=== PATIENT | female | born 1970 | race Caucasian/White ===

== ENCOUNTER 2020-07-13 13:06 | Outpatient (REF) | payer MEDICARE, MEDICAID, SELFPAY ==
--- NOTE | 2020-07-13 | MR_ITS ---
EXAMINATION: MR BRAIN WITHOUT AND WITH CONTRAST CLINICAL INFORMATION: MS. Epilepsy. COMPARISON: None TECHNIQUE: Multiplanar, multisequence MRI of the brain was obtained before and after the intravenous administration of 7 mL Gadavist. FINDINGS: There is no focal restricted diffusion seen to suspect any acute ischemia or acute demyelination. There is a focal hyperintensity on T2 with corresponding T1 hypointensity in the left posterior lobe extending to the occipital lobe consistent with encephalomalacia. Surrounding this encephalomalacia are two areas of hyperintensity likely gliosis. Postcontrast no abnormal enhancement seen in this region. There are T2-weighted signal changes on FLAIR along the periventricular white matter of both cerebral hemispheres without mass effect or enhancement representing chronic small vessel ischemic changes. No abnormality seen in the temporal lobes. There is benign hyperostosis frontalis interna without enhancement. The lateral ventricles are symmetrical and enlarged without mass effect. Normal arterial and venous vascular flow voids are present. There is normal symmetry of bilateral optic globes, optic nerves and extraocular muscles. No abnormal enhancement seen. The paranasal sinuses are well aerated. MR/MR head/brain wo/w con IMPRESSION: Left parieto-occipital lobe encephalomalacia with adjacent gliosis but no abnormal enhancement seen. This is most likely from old insult. Periventricular T2 signal changes without enhancement likely chronic small vessel ischemic changes in both cerebral hemispheres. Mild prominence of lateral ventricles likely mild cerebral volume loss.
== END 2020-07-13 13:07 | disposition home or self-care (01) ==
LOC: HO.MRI 13:06
PROVIDERS: PCP Physician Assistant; Visit Provider Psychiatry & Neurology Neurology
DX: G35 Multiple sclerosis (principal); G40.909 Epilepsy, unspecified, not intractable, without status epilepticus
CPT/HCPCS: 70553; A9585

== ENCOUNTER 2020-11-09 12:37 | Emergency (ER) | payer MEDICARE, MEDICAID, SELFPAY ==
--- NOTE | ~2020-11-09 | XR_ITS ---
EXAMINATION: XR KNEE, RIGHT CLINICAL INFORMATION: Pain and swelling COMPARISON: None TECHNIQUE: Four views of the right knee. FINDINGS: Bone alignment is normal. No fracture or dislocation is seen. The joint spaces are normal. There is a small osteophyte at the quadriceps tendon insertion to the patella. There is no joint effusion. XR/XR knee RT 4V IMPRESSION: Small osteophyte at the quadriceps tendon insertion to the patella otherwise unremarkable exam.
[2020-11-09 14:32] VITALS: BP 140/74; PULSE 87; RESP 18; TEMP 36.4; O2SAT 98; BMI 28.3
--- NOTE | 2020-11-09 14:47 | ED.LOWEXIN ---
HPI - Extremity Injury (Lower) General Chief Complaint: Extremity Injury, Lower Stated Complaint: R LEG SWELLING Time Seen by Provider: 11/09/20 14:36 Source: patient Mode of arrival: ambulatory Limitations: no limitations History of Present Illness HPI Narrative: 49 yo female with past medical history of MS, previous hypertension injury of the right knee here with complaints of right knee pain since yesterday with swelling. No erythema, warmth, fevers, chills. Related Data Allergies Allergy/AdvReac Type Severity Reaction Status Date / Time aspirin [ASPIRIN] AdvReac Severe GI BLEEDING Verified 11/09/20 14:32 hydromorphone [From DILAUDID] AdvReac Severe VIOLENT Verified 11/09/20 14:32 NSAIDS (Non-Steroidal AdvReac Severe GI BLEEDING Verified 11/09/20 14:32 Anti-Inflamma [NSAIDS (NON-STEROIDAL ANTI-INFLAMMA] oxycodone [OXYCODONE] AdvReac Mild NAUSEA & Verified 11/09/20 14:32 VOMITING penicillin Allergy Unknown Hives Uncoded 11/09/20 14:32 Review of Systems Review of Systems: Yes all other systems are reviewed and are negative Constitutional: Constitutional: Reports no additional constitutional complaints, Denies body ache(s), Denies chills, Denies fever(s), Denies headache(s) and Denies weakness Eyes: Eyes: Reports no additional eye complaints and Denies change in vision ENT: Reports system reviewed and no additional complaints, except as documented, Denies dizziness, Denies headache(s), Denies nasal congestion, Denies nasal discharge and Denies neck pain Cardiovascular: Cardiovascular: Reports no additional cardiovascular complaints, Denies chest pain, Denies leg edema and Denies dyspnea Respiratory: Respiratory: Reports no additional respiratory complaints, Denies cough and Denies dyspnea Gastrointestinal: Gastrointestinal: Reports no additional gastrointestinal complaints, Denies abdominal pain, Denies diarrhea, Denies nausea and Denies vomiting Genitourinary: Genitourinary: Reports no additional female genitourinary complaints and Denies urinary incontinence Musculoskeletal: Musculoskeletal: Reports no additional musculoskeletal complaints, Denies back pain, Reports arthralgias, Reports joint swelling, Denies neck pain, Denies numbness and Denies tingling Integumentary/Breasts: Skin/Breast: Reports system reviewed and no additional complaints, except as docu and Denies rash Neurologic: Reports system reviewed and no additional complaints, except as documented, Denies Abnormal speech present, Denies dizziness, Denies headache(s), Denies numbness, Denies tingling and Denies weakness PMFSH Past Medical History Attestation statement: The following information was validated with the patient. Source: old records reviewed and nursing notes reviewed Medical History Multiple sclerosis Surgical History H/O brain surgery Social History Social History Advance Directives: No Advance Directives Information Provided: No Physical Exam Vital Signs: Vital Signs: Last Vital Signs Temp 97.6 F 11/09/20 14:32 Pulse 87 11/09/20 14:32 Resp 18 11/09/20 14:32 BP 140/74 H 11/09/20 14:32 Pulse Ox 98 11/09/20 14:32 Body Mass Index 28.3 Const: General: cooperative, healthy appearing, comfortable and no acute distress Orientation/consciousness: patient oriented x3 Limitations: no limitations HENMT: Head: Yes normal to inspection Ears: hearing grossly normal bilaterally General nose exam: Normal external nose present Face and sinus: Yes normal facial exam Mouth: Normal oral and palatal mucosa present Throat: Yes posterior oropharynx normal Eyes: General: appearance normal, both eyes and all related structures Pupils: Equal, round and reactive pupils present Neck: Neck: Yes normal visual inspection Chest: Chest palpation & inspection: normal inspection of the chest Resp: Effort & Inspection: normal respiratory effort Auscultation: clear to auscultation bilaterally Cardio: Rate: regular rate Rhythm: regular rhythm Peripheral pulses: Peripheral pulses 2+ throughout GI: Inspection: Yes normal to inspection Palpation (GI): Soft to palpation and nontender Auscultation: normal bowel sounds Back/Spine/Pelvis: Thoracic/Lumbar Spine: thoracic and lumbar spine normal to inspection Skin: General skin exam: no rashes or lesions noted Neuro: General: patient oriented x3, no focal motor deficits and normal sensation to monofilament Cranial nerves: Yes Equal, round and reactive pupils present Cognition (Neuro): normal cognition Speech: No Abnormal speech present Gait exam (Neuro): Normal gait present Motor exam (neuro): 5/5 motor strength present throughout Extrem: Other: Tenderness to anterior knee, suprapatellar and medial joint line. FROM. No ligamental laxity. NV intact distally. General: Yes normal to inspection Course Course Course Narrative: 49 yo female here with right knee pain atraumatic x 24 hrs. WIll check imaging. 1515-Imaging c/w with bone spur likely secondary to underlying OA. To place in alivia wrap and provide crutches, discussed RICE at home. Will have f/u with orthopedics if no improvement in symptoms. Comfortable with discharge home. Procedures Procedure Narrative Procedure Narrative: alivia wrap, crutches with teaching MDM - Extremity Injury (Lower) Medical Records Attestation: I reviewed the patient's medical records. Lab Data Attestation: I reviewed the patient's lab results. Imaging Data knee xray: Attestation: I personally reviewed and interpreted this imaging study as follows: Radiologist's impression: EXAMINATION: XR KNEE, RIGHT CLINICAL INFORMATION: Pain and swelling COMPARISON: None TECHNIQUE: Four views of the right knee. FINDINGS: Bone alignment is normal. No fracture or dislocation is seen. The joint spaces are normal. There is a small osteophyte at the quadriceps tendon insertion to the patella. There is no joint effusion. XR/XR knee RT 4V IMPRESSION: Small osteophyte at the quadriceps tendon insertion to the patella otherwise unremarkable exam. Discharge Plan Discharge Clinical Impression: Osteoarthritis Patient Disposition: Home, Self-Care Instructions: Osteoarthritis (ED) Additional Instructions: Ice, elevation, alivia wrap for compression, crutches to limit weight bearing Follow-up with orthopedics if no improvement in several days Referrals: Prasanth Degroot MD [Physician] - 2 days Interventions: ED Discharge Assessment Last Done: 11/09/20 15:25 Discharge Date/Time: 11/09/20 15:26
== END 2020-11-09 15:26 | disposition home or self-care (01) ==
PROVIDERS: Emergency Provider Emergency Medicine; PCP Physician Assistant
DX: M17.11 Unilateral primary osteoarthritis, right knee (principal); M25.561 Pain in right knee; G35 Multiple sclerosis
CPT/HCPCS: 73564; 99283

== ENCOUNTER → 2020-11-13 10:36 | Outpatient (BNVA) | payer MEDICARE, MEDICAID, SELFPAY | PROVIDERS: Visit Provider Physician Assistant | DX: Z13.89 Encounter for screening for other disorder (principal) | CPT/HCPCS: 99202 ==

== ENCOUNTER 2020-11-24 16:17 | Emergency (ER) | payer MEDICARE, MEDICAID, SELFPAY ==
--- NOTE | ~2020-11-24 | XR_ITS ---
EXAMINATION: 1. RADIOGRAPHS LUMBAR SPINE 2. RADIOGRAPHS RIGHT HIP 3. RADIOGRAPHS RIGHT KNEE 4. RADIOGRAPHS RIGHT ANKLE CLINICAL INFORMATION: Pain after fall COMPARISON: Right knee radiographs 11/09/2020 TECHNIQUE: 3 views of the lumbar spine, 2 views of the right hip, 4 views of the right knee and 3 views of right ankle were obtained. FINDINGS: Lumbar spine: 5 nonrib-bearing lumbar vertebral bodies are visualized. Normal alignment. Vertebral body heights are well-maintained. Mildly decreased disc spaces noted at L1/L2, L2/L3 and L5/S1. There are mild degenerative changes of the posterior elements of the lower lumbar spine. Sacroiliac joints are symmetric. Surgical clips in the upper abdomen are most consistent with prior cholecystectomy. Right hip: The pelvic ring is intact. Visualized portion of the proximal right femur demonstrate no fracture. Right femoral head is well-seated within the acetabulum. Right femoral acetabular joint space is well-maintained. Small osteophyte along the superolateral right acetabular margin. Punctate vascular calcification of the pelvis. Limited visualization of the left hip is grossly unremarkable. Right knee: No fracture or dislocation. No suprapatellar joint effusion. Joint spaces are well-maintained. A few tiny marginal osteophytes are noted. No prevertebral soft tissue swelling. Right ankle: Visualized portion of the distal tibia and fibula demonstrate no fracture. Ankle mortise is well-maintained. No focal soft tissue swelling of the ankle. No gross ankle joint effusion. Tiny plantar calcaneal enthesophytes. XR/XR ankle RT min 3V IMPRESSION: -Mild degenerative changes of the lumbar spine. No compression deformity. -Minimal degenerative changes of the right hip without fracture or dislocation. -Minimal degenerative changes of the right knee without fracture, dislocation or suprapatellar joint effusion. -Unremarkable radiographs of the right ankle.
--- NOTE | ~2020-11-24 | XR_ITS ---
EXAMINATION: 1. RADIOGRAPHS LUMBAR SPINE 2. RADIOGRAPHS RIGHT HIP 3. RADIOGRAPHS RIGHT KNEE 4. RADIOGRAPHS RIGHT ANKLE CLINICAL INFORMATION: Pain after fall COMPARISON: Right knee radiographs 11/09/2020 TECHNIQUE: 3 views of the lumbar spine, 2 views of the right hip, 4 views of the right knee and 3 views of right ankle were obtained. FINDINGS: Lumbar spine: 5 nonrib-bearing lumbar vertebral bodies are visualized. Normal alignment. Vertebral body heights are well-maintained. Mildly decreased disc spaces noted at L1/L2, L2/L3 and L5/S1. There are mild degenerative changes of the posterior elements of the lower lumbar spine. Sacroiliac joints are symmetric. Surgical clips in the upper abdomen are most consistent with prior cholecystectomy. Right hip: The pelvic ring is intact. Visualized portion of the proximal right femur demonstrate no fracture. Right femoral head is well-seated within the acetabulum. Right femoral acetabular joint space is well-maintained. Small osteophyte along the superolateral right acetabular margin. Punctate vascular calcification of the pelvis. Limited visualization of the left hip is grossly unremarkable. Right knee: No fracture or dislocation. No suprapatellar joint effusion. Joint spaces are well-maintained. A few tiny marginal osteophytes are noted. No prevertebral soft tissue swelling. Right ankle: Visualized portion of the distal tibia and fibula demonstrate no fracture. Ankle mortise is well-maintained. No focal soft tissue swelling of the ankle. No gross ankle joint effusion. Tiny plantar calcaneal enthesophytes. XR/XR knee RT 4V IMPRESSION: -Mild degenerative changes of the lumbar spine. No compression deformity. -Minimal degenerative changes of the right hip without fracture or dislocation. -Minimal degenerative changes of the right knee without fracture, dislocation or suprapatellar joint effusion. -Unremarkable radiographs of the right ankle.
--- NOTE | ~2020-11-24 | XR_ITS ---
EXAMINATION: 1. RADIOGRAPHS LUMBAR SPINE 2. RADIOGRAPHS RIGHT HIP 3. RADIOGRAPHS RIGHT KNEE 4. RADIOGRAPHS RIGHT ANKLE CLINICAL INFORMATION: Pain after fall COMPARISON: Right knee radiographs 11/09/2020 TECHNIQUE: 3 views of the lumbar spine, 2 views of the right hip, 4 views of the right knee and 3 views of right ankle were obtained. FINDINGS: Lumbar spine: 5 nonrib-bearing lumbar vertebral bodies are visualized. Normal alignment. Vertebral body heights are well-maintained. Mildly decreased disc spaces noted at L1/L2, L2/L3 and L5/S1. There are mild degenerative changes of the posterior elements of the lower lumbar spine. Sacroiliac joints are symmetric. Surgical clips in the upper abdomen are most consistent with prior cholecystectomy. Right hip: The pelvic ring is intact. Visualized portion of the proximal right femur demonstrate no fracture. Right femoral head is well-seated within the acetabulum. Right femoral acetabular joint space is well-maintained. Small osteophyte along the superolateral right acetabular margin. Punctate vascular calcification of the pelvis. Limited visualization of the left hip is grossly unremarkable. Right knee: No fracture or dislocation. No suprapatellar joint effusion. Joint spaces are well-maintained. A few tiny marginal osteophytes are noted. No prevertebral soft tissue swelling. Right ankle: Visualized portion of the distal tibia and fibula demonstrate no fracture. Ankle mortise is well-maintained. No focal soft tissue swelling of the ankle. No gross ankle joint effusion. Tiny plantar calcaneal enthesophytes. XR/XR lumbar spine 2-3V IMPRESSION: -Mild degenerative changes of the lumbar spine. No compression deformity. -Minimal degenerative changes of the right hip without fracture or dislocation. -Minimal degenerative changes of the right knee without fracture, dislocation or suprapatellar joint effusion. -Unremarkable radiographs of the right ankle.
--- NOTE | ~2020-11-24 | XR_ITS ---
EXAMINATION: 1. RADIOGRAPHS LUMBAR SPINE 2. RADIOGRAPHS RIGHT HIP 3. RADIOGRAPHS RIGHT KNEE 4. RADIOGRAPHS RIGHT ANKLE CLINICAL INFORMATION: Pain after fall COMPARISON: Right knee radiographs 11/09/2020 TECHNIQUE: 3 views of the lumbar spine, 2 views of the right hip, 4 views of the right knee and 3 views of right ankle were obtained. FINDINGS: Lumbar spine: 5 nonrib-bearing lumbar vertebral bodies are visualized. Normal alignment. Vertebral body heights are well-maintained. Mildly decreased disc spaces noted at L1/L2, L2/L3 and L5/S1. There are mild degenerative changes of the posterior elements of the lower lumbar spine. Sacroiliac joints are symmetric. Surgical clips in the upper abdomen are most consistent with prior cholecystectomy. Right hip: The pelvic ring is intact. Visualized portion of the proximal right femur demonstrate no fracture. Right femoral head is well-seated within the acetabulum. Right femoral acetabular joint space is well-maintained. Small osteophyte along the superolateral right acetabular margin. Punctate vascular calcification of the pelvis. Limited visualization of the left hip is grossly unremarkable. Right knee: No fracture or dislocation. No suprapatellar joint effusion. Joint spaces are well-maintained. A few tiny marginal osteophytes are noted. No prevertebral soft tissue swelling. Right ankle: Visualized portion of the distal tibia and fibula demonstrate no fracture. Ankle mortise is well-maintained. No focal soft tissue swelling of the ankle. No gross ankle joint effusion. Tiny plantar calcaneal enthesophytes. XR/XR hip RT w PEL1V IMPRESSION: -Mild degenerative changes of the lumbar spine. No compression deformity. -Minimal degenerative changes of the right hip without fracture or dislocation. -Minimal degenerative changes of the right knee without fracture, dislocation or suprapatellar joint effusion. -Unremarkable radiographs of the right ankle.
[2020-11-24 16:33] VITALS: BP 123/75; PULSE 83; RESP 16; TEMP 36.4; O2SAT 98; BMI 27.4
[2020-11-24 18:20] VITALS: BP 118/73; PULSE 84; RESP 16; O2SAT 98
[2020-11-24] MEDS: Acetaminophen 325 MG TABLET 650 MG PO (18:28)
--- NOTE | 2020-11-24 18:35 | ED_ITS ---
HPI - Extremity Injury (Lower) General Chief Complaint: Extremity Injury, Lower Stated Complaint: fall - knee pain Time Seen by Provider: 11/24/20 17:56 Source: patient Mode of arrival: ambulatory Limitations: no limitations History of Present Illness HPI Narrative: 49 y/o female presenting with right low back pain, right hip, knee and ankle pain after she slipped and fell today on her kitchen floor while sweeping. She was able to get up after she fell but had immediate pain, mostly in her low back and hip that radiates down her leg. She is able to ambulate but has a limp. She did not hit her head or lose consciousness. She has a history of chronic right knee pain and was wearing her knee brace when she fell. MD complaint: hip injury, knee injury, ankle injury and fall Onset (ago): hour(s) Injury: Right: hip, knee and ankle Place: home Severity: moderate Relieving factors: cold therapy, immobilization and rest Exacerbating factors: weight bearing, movement and palpation Context: fall and direct blow Associated symptoms: able to partially bear weight Other symptoms: none Treatments prior to arrival: cold therapy Related Data Allergies Allergy/AdvReac Type Severity Reaction Status Date / Time aspirin [ASPIRIN] AdvReac Severe GI BLEEDING Verified 11/13/20 10:54 hydromorphone [From DILAUDID] AdvReac Severe VIOLENT Verified 11/13/20 10:54 NSAIDS (Non-Steroidal AdvReac Severe GI BLEEDING Verified 11/13/20 10:54 Anti-Inflamma [NSAIDS (NON-STEROIDAL ANTI-INFLAMMA] oxycodone [OXYCODONE] AdvReac Mild NAUSEA & Verified 11/13/20 10:54 VOMITING penicillin Allergy Unknown Hives Uncoded 11/09/20 14:32 Review of Systems Review of Systems: Constitutional: No Fever, No Chills Cardiovascular: No Chest Pain, No SOB Respiratory: No Cough, No Sputum, No Wheezing, No dyspnea Gastrointestinal: No Nausea, No Vomiting, No Diarrhea, No abdominal Pain Musculoskeletal: + joint pain, + Myalgias Skin: No Skin Lesions, No rash Neuro: No Weakness, No Numbness, No Dizziness, No Headache Psych: No Anxiety/Panic, No Depression Heme/Lymph: No Bruising, No Lymphadenopathy PMFSH Past Medical History Attestation statement: The following information was validated with the patient. Medical History Multiple sclerosis Seizures Surgical History H/O brain surgery Family History Family History (Updated 11/13/20 @ 10:55 by DOUG Cardona) Mother No problems noted. Father No problems noted. Social History Social History (Updated 11/13/20 @ 10:55 by DOUG Cardona) Alcohol intake: never Smoking Status: Never smoker Advance Directives: No Advance Directives Information Provided: No Current occupational status: unemployed Physical Exam Vital Signs: Vital Signs: Last Vital Signs Temp 97.6 F 11/24/20 16:33 Pulse 84 11/24/20 18:20 Resp 16 11/24/20 18:20 BP 118/73 11/24/20 18:20 Pulse Ox 98 11/24/20 18:20 Body Mass Index 27.4 Appearance: Alert. Oriented X3. No acute distress. HEENT: normal inspection CVS: Normal heart rate and rhythm. Pulses normal. Respiratory: No respiratory distress. Skin: Skin warm and dry. Normal skin color. Normal skin turgor. No rashes. Extremities: right lateral hip tenderness, normal flexion and extension, mild soft tissue tenderness of right lower lumbar area, no hip, knee or ankle d eformity,, normal ROM without point tenderness. no erythema or warmth. Neuro: Oriented X 3. No motor deficit. No sensory deficit. Ambulates with limping gait. Course Course Course Narrative: 49 y/o female here with right low back, hip and extremity pain after slip and fall ealier today. Walks with limp. XR pending to assess for traumatic injury. She is in no distress. Reevaluation(s) Reevaluation #1: XR's are all negative. She is stable for discharge. She agrees to take PRN tylenol at home and use topical measures for pain. She will f/u with her doctor as needed. Critical Care Time Critical Care Time Critical Care Time: No Discharge Plan Discharge Clinical Impression: Fall Qualifiers: Encounter type: initial encounter Qualified Code(s): W19.XXXA - Unspecified fall, initial encounter Contusion of hip Qualifiers: Encounter type: initial encounter Laterality: right Qualified Code(s): S70.01XA - Contusion of right hip, initial encounter Low back strain Qualifiers: Encounter type: initial encounter Qualified Code(s): S39.012A - Strain of muscle, fascia and tendon of lower back, initial encounter Patient Disposition: Home, Self-Care Instructions: Low Back Strain (ED), Contusion in Adults (ED), Fall Prevention (ED) Additional Instructions: No bending, lifting or twisting. Use ice several times per day for 20 minutes at a time for the next 48 hours and then change to heat. Take Tylenol 1,000 mg every 6 hours as needed for pain. Do not exceed 4,000 mg in a 24 hour period. Follow up with your Primary Care Doctor this week. If your pain worsens, if you develop new numbness, tingling, weakness, loss of function or incontinence call 911 or come back to the ER right away for evaluation. Interventions: ED Discharge Assessment Last Done: 11/24/20 19:23 Discharge Date/Time: 11/24/20 19:23
[2020-11-24] MEDS: HYDROcodone Bit/Acetam 5/325 TABLET 1 TAB PO (18:42)
== END 2020-11-24 19:23 | disposition home or self-care (01) ==
PROVIDERS: Emergency Provider Emergency Medicine; PCP Physician Assistant
DX: S39.012A Strain of muscle, fascia and tendon of lower back, initial encounter (principal); S70.01XA Contusion of right hip, initial encounter; W01.0XXA Fall on same level from slipping, tripping and stumbling without subsequent striking against object, initial encounter; M25.561 Pain in right knee; M25.571 Pain in right ankle and joints of right foot; G35 Multiple sclerosis; Y93.E5 Activity, floor mopping and cleaning; Y92.010 Kitchen of single-family (private) house as the place of occurrence of the external cause; Y99.9 Unspecified external cause status
CPT/HCPCS: 72100; 73502; 73564; 73610; 99283; 99284

== ENCOUNTER 2021-01-01 14:00 | Outpatient (RCR) | payer MEDICARE, MEDICAID, SELFPAY ==
--- NOTE | 2020-12-03 14:48 | MHC.PT.EP ---
[facility] [place] Office [place] [facility] [place] Office [address] Marta Ramírez [address] [phone] F: [phone] F: [phone] F: [phone] F: [phone] Physical Therapy Plan of Care Date of Evaluation: 12/02/20 Date of Surgery: N/A Diagnosis: unilateral primary osteoarthritis, right knee Assessment: pt presents to physical therapy with pain, decreased range of motion, decreased strength, impaired functional mobility, impaired postural awareness, and gait deviations. pt is a good candidate for skilled PT due to age, potential remediation of impairments, typical disease/condition progression and prognosis, comorbidities, and motivation. pt would benefit from tailored strengthening and stretching exercise program, functional training, gait training, postural re-training, neuromuscular re-education, modalities as needed for pain, equipment safety demonstration. Frequency and Duration: The patient will be seen 2x/wk for 5 wks Short Term Goals: pt will be I w/ HEP to promote self-management of condition. pt will improve B hip internal rotation by 15 degrees to normalize gait pattern on even ground. Jail Goals: pt will report a statistically significant improvement in her self-reported outcome measure, LEFI, to promote return to PLOF. pt will report <1/10 R knee pain w/ ambulation >2500' using LRAD to promote full return to community ambulation. Treatment Plan: Modalities to reduce pain, spasms and effusion. Manual therapy to restore motion and function. Therapeutic exercise to improve strength and flexibility. Neuromuscular re-education for posture and balance. Therapeutic activities to return to functional activities of daily living. Electronically signed by: Leanne Henson PT, DPT Please sign and return to therapist. Thank you for your referral.
--- NOTE | 2021-01-01 14:25 | MHC.PT.DC ---
[facility] [place] [facility] [place] Office [address] Marta Ramírez 140 [facility] [phone] F: [phone] F: [phone] F: [phone] F: [phone] Physical Therapy Discharge Report Diagnosis: unilateral primary osteoarthritis, right knee Date of Surgery: N/A Date of Evaluation: 12/02/20 Date of Discharge: 01/01/21 Treatments to Date: 3 Cancellations to Date: 3 No Shows to Date: 4 Discharge Status: Visit Non-compliance Discharge Summary: The patient was reporting an improvement in her knee pain with physical therapy. She was shown knee and hip strengthening exercises to reduce her tendency to hyperextend her knee. She was reporting a painful clicking and popping sensation of the knee when she would actively flex the joint. The patient may benefit from an MRI to determine if there was any soft tissue damage from her hyperextension injury. She has not shown for four consecutive appointments. Per [facility] policy, which the patient was aware of and signed, she is to be discharged from this physical therapy plan of care. If she wishes to return to physical therapy she will require a new script. Electronically signed by: Leanne Henson PT, DPT Please sign and return to therapist. Thank you for your referral.
== END 2021-01-01 14:25 | disposition other institution (70) ==
LOC: HO.PT 14:00
PROVIDERS: PCP Physician Assistant; Visit Provider Physician Assistant
DX: M17.11 Unilateral primary osteoarthritis, right knee (principal)
CPT/HCPCS: 97110; 97112; 97161

== ENCOUNTER 2021-01-20 16:13 | Emergency (ER) | payer MEDICARE, MEDICAID, SELFPAY ==
--- NOTE | ~2021-01-20 | CT_ITS ---
EXAMINATION: CT HEAD WITHOUT CONTRAST CLINICAL INFORMATION: Left facial numbness with history of MS. COMPARISON: MRI head 07/13/2020 TECHNIQUE: Contiguous axial imaging was performed from the skull base to vertex without intravenous administration of contrast. This CT examination was performed using dose optimization techniques as appropriate, variously including the following: *Automated exposure control *Adjustment of mA and/or kV according to patient size (this includes techniques or standardized protocols for targeted exams where dose is matched to indication/reason for exam; i.e. extremities or head) *Use of iterative reconstruction technique DLP: 709 mGy-cm FINDINGS: There is no evidence of acute intracranial hemorrhage or territorial infarction. Noted is a left parietal occipital lobe encephalomalacia from old insult results in ex vacuole dilatation of occipital horn lateral ventricle. No abnormal mass effect or midline shift is seen. Young to white matter differentiation is well preserved. No extra-axial fluid collections are identified. The ventricles are symmetrical and enlarged with dilated left occipital horn, lateral ventricles. There is diffuse periventricular hypodensity most prominent in the frontal lobes suggestive of chronic small vessel ischemia. There is diffuse hyperostosis frontalis interna. The there is left posterior parietal lobe calvarial defects from previous intervention. Other calvarial abnormality seen. There is no scalp soft tissue abnormality. The mastoid air cells and visualized portions of the paranasal sinuses are well aerated. CT/CT head/brain wo con IMPRESSION: No acute intracranial process seen. Old left posterior parietal lobe encephalomalacia with ex-vacuole dilatation of left occipital horn lateral ventricle. There is mild cerebral volume loss with chronic small vessel ischemic changes in both cerebral hemispheres.
[2021-01-20 17:28] VITALS: BP 137/92; PULSE 82; RESP 18; TEMP 36.3; O2SAT 100; BMI 30.9
--- NOTE | 2021-01-20 18:07 | ED_ITS ---
HPI - Dizziness General Chief Complaint: Dizziness Stated Complaint: WEAKNESS, NUMBNESS Time Seen by Provider: 01/20/21 18:05 Source: patient Mode of arrival: ambulatory Limitations: no limitations History of Present Illness HPI Narrative: patient with history of MS , seizure disorder on Vimpat seen neurologist last week, Vimpat dosing was increased as she had a seizure last week to 300 mg daily. Today since 16:00 noticed sudden onset of numbness of the left side of the face with frontal headache and vertigo no nausea no vomiting felt more off balance while walking no fever no chills no tinnitus Related Data Previous Rx's Medication Instructions Recorded meclizine 25 mg PO TID PRN #20 tab 01/20/21 Allergies Allergy/AdvReac Type Severity Reaction Status Date / Time aspirin [ASPIRIN] AdvReac Severe GI BLEEDING Verified 01/20/21 17:28 hydromorphone [From DILAUDID] AdvReac Severe VIOLENT Verified 01/20/21 17:28 NSAIDS (Non-Steroidal AdvReac Severe GI BLEEDING Verified 01/20/21 17:28 Anti-Inflamma [NSAIDS (NON-STEROIDAL ANTI-INFLAMMA] penicillin Allergy Unknown Hives Uncoded 11/09/20 14:32 Review of Systems Review of Systems: Constitutional : No Weight loss, No Fever, No Chills ENT/Mouth : No sore throat, No Rhinorrhea Eyes: No Eye Pain, No Swelling Cardiovascular : No Chest Pain, no palpitations Respiratory : No Cough, No Sputum, no shortness of breath Gastrointestinal : no Nausea, No Vomiting, No Diarrhea, No abdominal Pain, no black stools Genitourinary : No Dysuria, No Urinary Frequency Musculoskeletal : No joint pain, No Myalgias, No Joint Swelling Skin : No Skin Lesions, No rash Neuro : + Weakness, No Numbness, + Dizziness, No Headache Psych : No Anxiety/Panic, No Depression Heme/Lymph: No Bruising, No Lymphadenopathy Endocrine : No Polyuria, No Polydipsia All other systems reviewed and are negative [facility] Past Medical History Medical History Multiple sclerosis Seizures Stroke Surgical History H/O brain surgery Family History Family History Mother No problems noted. Father No problems noted. Social History Social History Alcohol intake: never Smoking Status: Never smoker Advance Directives: No Advance Directives Information Provided: No Patient : No Current occupational status: unemployed Physical Exam Vital Signs: Vital Signs: Last Vital Signs Temp 98.4 F 01/20/21 19:54 Pulse 74 01/20/21 19:54 Resp 18 01/20/21 19:54 BP 127/78 01/20/21 19:54 Pulse Ox 99 01/20/21 19:54 Body Mass Index 30.9 Appearance: Alert. Oriented X3. No acute distress. Eyes: PERRLA, No Nystagmus ENT: Pharynx normal. Oral Mucosa moist Neck: Normal inspection. Neck supple. CVS: Normal heart rate and rhythm. Pulses normal. Respiratory: No respiratory distress. Equal air entry bilateral, no wheezing/rales/rhonchi Abdomen: Soft and nontender. Bowel sounds are present, no mass palpable, no CVA tenderness Skin: Skin warm and dry. Normal skin color. Normal skin turgor. Extremities: No lower extremity edema. No calf tenderness Neuro: Oriented X 3. residual old LE motor deficit. .No cerebellar signs , cranial nerves II-XII intact left facial numbness+ MDM - Dizziness MDM Narrative Medical decision making narrative: Patient's symptoms of peripheral vertigo nonspecific paresthesia of the left face without any significant focal motor weakness CT scan negative patient started feeling better after staying in the ER CRP also negative does not seem to be MS exacerbation. Will discharge patient home on meclizine Medical Records Attestation: I reviewed the patient's medical records. Lab Data Attestation: I reviewed the patient's lab results. Result diagrams: 01/20/21 18:38 01/20/21 18:38 Labs: Lab Results 01/20/21 01/20/21 01/20/21 Range/Units 18:38 18:38 18:38 WBC 9.1 (4.8-10.8) X10*3/uL RBC 4.28 (4.20-5.50) X10*6/uL Hgb 14.3 (12.0-16.0) g/dl Hct 42.3 (37-47) % MCV 98.8 H (80-98) fL MCH 33.4 H (27.0-33.0) pg MCHC 33.8 (31.0-35.0) g/dl RDW 11.9 (11.0-16.0) % Plt Count 296 (160-400) X10*3/uL MPV 11.0 (9.4-12.3) fL Immature Gran % (Auto) 0.2 (0.0-0.4) % Neut % (Auto) 63.1 (45-73) % Lymph % (Auto) 29.5 (20-40) % [place] % (Auto) 5.3 (2-11) % Eos % (Auto) 1.1 (0-4) % Baso % (Auto) 0.8 (0-2) % Lymph # (Auto) 2.7 (1.2-4.9) X10*3/uL [place] # (Auto) 0.5 (0.1-1.2) X10*3/uL Eos # (Auto) 0.1 (0.0-0.4) X10*3/uL Baso # (Auto) 0.1 (0.0-0.2) X10*3/uL Abs Immat Gran (auto) 0.02 (0.00-0.03) X10*3/uL Absolute Neuts (auto) 5.7 (2.0-8.3) X10*3/uL Absolute Nucleated RBC 0.000 (0.0-0.012) X10*3/uL Nucleated RBC % (auto) 0.0 (0.0-0.2) /100WBC Sodium 140 (135-145) mmol/L Potassium 4.1 (3.3-5.1) mmol/L Chloride 104 (96-108) mmol/L Carbon Dioxide 25 (22-29) mmol/L Anion Gap 15 (12-20) BUN 12 (9-16) mg/dL Creatinine 0.86 (0.5-1.4) mg/dL Estim Creat Clear Calc 81.8 Estimated GFR > 60 Random Glucose 91 (60-115) mg/dL Calcium 9.2 (8.4-10.2) mg/dL Total Bilirubin 0.4 (0.0-1.0) mg/dL Direct Bilirubin 0.2 (0.0-0.5) mg/dL AST 18 (5-31) U/L ALT 31 (0-31) U/L Alkaline Phosphatase 77 (39-117) U/L C-Reactive Protein 0.33 (< or = 0.50) mg/dL Total Protein 6.7 (6.5-8.0) g/dL Albumin 4.1 (3.5-5.0) g/dL Discharge Plan Discharge Clinical Impression: Paresthesia Benign paroxysmal positional vertigo Qualifiers: Laterality: bilateral Qualified Code(s): H81.13 - Benign paroxysmal vertigo, bilateral Patient Disposition: Home, Self-Care Instructions: Benign Paroxysmal Positional Vertigo (ED), Paresthesia (ED) Additional Instructions: Rest at home. Take medication for dizziness as advised. Follow-up with neurologist Care and cautions as advised Prescriptions: New meclizine 25 mg tablet 25 mg PO TID PRN (Reason: dizziness or vertigo) Qty: 20 RF: 0 Interventions: ED Discharge Assessment Last Done: 01/20/21 20:37 Discharge Date/Time: 01/20/21 20:37
[2021-01-20 18:44] LABS: MANUAL DIFF FLAG NO
[2021-01-20 19:02] LABS: Basophils Absolute Auto 0.1 X10*3/uL (0.0-0.2); Basophils Percent Auto 0.8 % (0-2); Eosinophils Absolute Auto 0.1 X10*3/uL (0.0-0.4); Eosinophils Percent Auto 1.1 % (0-4); Hematocrit 42.3 % (37-47); Hemoglobin 14.3 g/dl (12.0-16.0); Imm Gran Abs Auto 0.02 X10*3/uL (0.00-0.03); Imm Gran Pct Auto 0.2 % (0.0-0.4); Lymphocytes Absolute Auto 2.7 X10*3/uL (1.2-4.9); Lymphocytes Percent Auto 29.5 % (20-40); Mean Corpuscular HGB Conc 33.8 g/dl (31.0-35.0); Mean Corpuscular Hemoglobin 33.4 pg (27.0-33.0); Mean Corpuscular Volume 98.8 fL (80-98); Monocytes Absolute Auto 0.5 X10*3/uL (0.1-1.2); Monocytes Percent Auto 5.3 % (2-11); Neutrophils Absolute Auto 5.7 X10*3/uL (2.0-8.3); Neutrophils Percent Auto 63.1 % (45-73); Platelet Count 296 X10*3/uL (160-400); Red Blood Count 4.28 X10*6/uL (4.20-5.50); Red Cell Distribution Width 11.9 % (11.0-16.0); White Blood Count 9.1 X10*3/uL (4.8-10.8)
[2021-01-20 19:05] LABS: C Reactive Protein 0.33 mg/dL (< or = 0.50)
[2021-01-20 19:08] LABS: Alanine Aminotransferase 31 U/L (0-31); Albumin Level 4.1 g/dL (3.5-5.0); Alkaline Phosphatase 77 U/L (39-117); Anion Gap 15 (12-20); Aspartate Amino Transferase 18 U/L (5-31); Bilirubin Direct 0.2 mg/dL (0.0-0.5); Bilirubin Total 0.4 mg/dL (0.0-1.0); Blood Urea Nitrogen 12 mg/dL (9-16); Calcium 9.2 mg/dL (8.4-10.2); Carbon Dioxide 25 mmol/L (22-29); Chloride 104 mmol/L (96-108); Creatinine Clr Calc Pharmacy 81.8; Estimated Glomerular Filt Rate > 60; Glucose Random 91 mg/dL (60-115); Potassium 4.1 mmol/L (3.3-5.1); Sodium 140 mmol/L (135-145); Total Protein 6.7 g/dL (6.5-8.0)
[2021-01-20 19:54] VITALS: BP 127/78; PULSE 74; RESP 18; TEMP 36.9; O2SAT 99
[2021-01-20] MEDS: Meclizine HCl 25 MG TABLET PO (20:29)
== END 2021-01-20 20:37 | disposition home or self-care (01) ==
PROVIDERS: Emergency Provider Internal Medicine; PCP Physician Assistant
DX: H81.13 Benign paroxysmal vertigo, bilateral (principal); R53.1 Weakness; R20.2 Paresthesia of skin; Z79.899 Other long term (current) drug therapy
CPT/HCPCS: 36415; 70450; 80048; 80076; 85025; 86140; 99283

== ENCOUNTER 2021-12-03 12:49 | Outpatient (REF) | payer MEDICARE, MEDICAID, SELFPAY ==
[2021-12-03 13:36] LABS: Hematocrit 44.1 % (37.0-47.0); Hemoglobin 14.7 g/dl (12.0-16.0); Mean Corpuscular HGB Conc 33.3 g/dl (31.0-35.0); Mean Corpuscular Hemoglobin 33.8 pg (27.0-33.0); Mean Corpuscular Volume 101.4 fL (80.0-98.0); Mean Platelet Volume 10.9 fL (9.4-12.3); Platelet Count 279 X10*3/uL (160-400); Red Blood Count 4.35 X10*6/uL (4.20-5.50); Red Cell Distribution Width 11.9 % (11.0-16.0); White Blood Count 9.3 X10*3/uL (4.8-10.8)
[2021-12-03 14:13] LABS: Estimated Average Glucose 94 mg/dL; Hemoglobin A1c % 4.9 %
[2021-12-03 14:18] LABS: TSH reflex Free T4 0.85 uIU/mL (0.32-4.0)
[2021-12-03 14:37] LABS: Free T4 (Free Thyroxine) 1.06 ng/dL (0.71-1.85); Thyroid Stimulating Hormone 0.81 uIU/mL (0.32-4.0)
[2021-12-03 14:45] LABS: Folate 14.6 ng/mL (> or = 4.0); Vitamin B12 287 pg/mL (200-900)
== END 2021-12-03 12:50 | disposition home or self-care (01) ==
LOC: HO.LAB 12:49
PROVIDERS: PCP Physician Assistant; Visit Provider Nurse Practitioner Family
DX: Z13.29 Encounter for screening for other suspected endocrine disorder (principal); I10 Essential (primary) hypertension; R20.0 Anesthesia of skin
CPT/HCPCS: 36415; 82607; 82746; 83036; 84439; 84443; 85027

== ENCOUNTER 2021-12-20 13:57 | Outpatient (REF) | payer MEDICARE, MEDICAID, SELFPAY ==
--- NOTE | ~2021-12-20 | MM_ITS ---
EXAMINATION: MM DIAGNOSTIC DIGITAL BREAST TOMOSYNTHESIS, BILATERAL US DIAGNOSTIC ULTRASOUND BREAST, BILATERAL CLINICAL INFORMATION: 50-year-old with superficial dermatologic lesion anterior upper outer left breast, palpable concern periareolar 9:00 right breast, and 3 month history intermittent right nipple discharge (clear/shin). The lifetime risk of breast cancer based on the Tyrer-Cuzick Model is 7%. COMPARISON: None. (Prior outside mammography approximately 9 years ago. Radiology department staff will attempt to retrieve prior exam). TECHNIQUE: Digital breast tomosynthesis is performed in both the craniocaudal and mediolateral oblique views along with computer-aided detection (CAD). Synthesized 2D images are generated from the tomosynthesis. Additional spot left CC and spot left MLO views are obtained. Ultrasound left breast is targeted to the 11:00 through 4:00 position. In addition, ultrasound targeted to the dermatologic area anterior upper outer left breast. Ultrasound right breast is targeted to the 7:00 through 11:00 position. Both breasts are imaged using grayscale imaging and color Doppler without and with harmonics. FINDINGS: Mammography: There are scattered areas of fibroglandular density (ACR BI-RADS breast composition Category b). There is no skin thickening or coarsening of the Jesus Alberto's ligaments. The axilla and skin contours are unremarkable. Neither breast shows abnormal calcifications. The right breast shows no significant mass or architectural abnormality. Left breast has nodular asymmetric density under 1 cm mid 1:00 position. Ultrasound: Ultrasound right breast demonstrates no cystic or solid mass or architectural abnormality. There is no focal duct ectasia, skin thickening, or edema tracking in soft tissue planes. There is no ultrasound correlate for patient's palpable concern. Ultrasound left breast demonstrates no solid mass or architectural abnormality or focal duct ectasia. There is no skin thickening or edema tracking in soft tissue planes. No intradermal mass at site of dermatologic discoloration. There is a cyst left 1:00 position 5 cm from nipple corresponding to the nodular asymmetry on mammography and measuring 0.7 x 0.4 cm. There is increased through-transmission of sound. There are some fine incomplete internal septations. No peripheral or internal color flow. There is another cyst left breast 3:00 position 3 cm from nipple measuring 0.6 x 0.4 cm with a fine avascular internal septation. There is increased through-transmission of sound. Management: Results are discussed with the patient at time of visit. The left breast dermatologic concern should be managed based on the clinical impression. If clinically indicated, dermatologic consult may be considered. The right breast palpable concern has no mammographic or ultrasound correlate. If there is still clinical concern for palpable lesion, then surgical consult may be considered for further evaluation. In addition, persistent unexplained right nipple discharge could be further evaluated with breast MRI without and with contrast. MM/MM tomosynthesis diagnostic BI IMPRESSION: Left: -No mammographic evidence of malignancy. -There are 2 mildly complicated cysts 1:00 and 3:00 position, both under 1 cm. Right: -No mammographic or ultrasound evidence of malignancy. ASSESSMENT: BI-RADS 2: Benign RECOMMENDATION: 1. Left breast dermatologic concern should be managed based on the clinical impression. If clinically indicated, dermatologic consult may be considered. 2. If there is still clinical concern for palpable lesion right breast, then surgical consult may be considered for further evaluation. Persistent unexplained right nipple discharge could be further evaluated with breast MRI without and with contrast. 3. Radiology department staff will attempt to retrieve prior outside mammography to allow for comparison in an addendum report. Otherwise, routine annual screening mammography. This patient's information was entered into a reminder system with a target due date for their next mammogram.
== END 2021-12-20 13:58 | disposition home or self-care (01) ==
LOC: HO.MAMMO 13:57
PROVIDERS: Visit Provider Nurse Practitioner Family
DX: N63.21 Unspecified lump in the left breast, upper outer quadrant (principal); N63.15 Unspecified lump in the right breast, overlapping quadrants
CPT/HCPCS: 76642; 77062; 77066

== ENCOUNTER 2021-12-22 14:34 | Outpatient (REF) | payer MEDICARE, MEDICAID, SELFPAY ==
--- NOTE | ~2021-12-22 | US_ITS ---
EXAMINATION: US THYROID CLINICAL INFORMATION: Localized swelling thyroid, mass or lump, neck. COMPARISON: None. TECHNIQUE: Linear transducer grayscale and color Doppler examination with attention to the region of the thyroid. FINDINGS: SIZE: Measurements of the thyroid lobes and nodules are given in sagittal, anteroposterior and transverse dimensions respectively. Right Thyroid Lobe: 5.9 x 1.9 x 2.5 cm, volume 14.6 mL. Parenchyma: The gland echotexture is heterogeneous. Thyroid vascularity is increased. Left Thyroid Lobe: 6.1 x 1.6 x 1.7 cm, volume 8.2 mL. Parenchyma: The gland echotexture is homogeneous. Thyroid vascularity is increased. Isthmus: 0.3 cm in maximum AP dimension. Estimated total number of nodules greater than or equal to 1 cm: 3. [employer] nodules are described as follows: 1. Location: Right lower pole. Size: 1.6 x 0.8 x 1.1 cm, volume 0.75 mL. Nodule characteristics: Composition: Solid (2). Echogenicity: Hypoechoic (2). Shape: Not taller than wide (0). Margins: Smooth (0). Echogenic Foci: None (0). ACR TI-RADS total points: 4 ACR TI-RADS category: 4 2. Location: Right upper/midpole. Size: 3.4 x 1.8 x 2.7 cm, volume 8.7 mL. Nodule characteristics: Composition: Solid/almost completely solid (2). Echogenicity: Hypoechoic (2). Shape: Not taller than wide (0). Margins: Smooth (0). Echogenic Foci: Punctate echogenic foci (3). ACR TI-RADS total points: 7 ACR TI-RADS category: 5 3. Location: Left lower pole. Size: 2.2 x 1.3 x 1.2 cm, volume 1.8 mL. Nodule characteristics: Composition: Solid (2). Echogenicity: Hypoechoic (2). Shape: Not taller than wide (0). Margins: Smooth (0). Echogenic Foci: None (0). ACR TI-RADS total points: 4 ACR TI-RADS category: 4 4. Location: Left upper pole. Size: 0.4 x 0.2 x 0.3 cm, volume 0.02 mL. Nodule characteristics: Composition: Spongiform (0). ACR TI-RADS total points: 0 ACR TI-RADS category: 1 NODES: No lymphadenopathy is seen in the tissue surrounding the thyroid gland. US/US thyroid IMPRESSION: Enlarged right thyroid gland with a suspicious nodule measuring 3.4 cm and high TI-RADS criteria. Recommend fine-needle ultrasound-guided biopsy. ACR TI-RADS RECOMMENDATION REFERENCE: Ultrasound-guided fine-needle aspiration, followup ultrasound, no further follow up. * TR1 (0 point) and TR 2 (2 points): No FNA or follow up * TR3 (3 points): FNA if more than or equal to 2.5 cm in maximum dimension, followup ultrasound in 1, 3 and 5 years if 1.5 to 2.4 cm in maximum dimension. * TR4 (4-6 points): FNA if more than or equal to 1.5 cm in maximum dimension, followup ultrasound in 1, 2, 3 and 5 years if 1 to 1.4 cm in maximum dimension. * TR5 (more than or equal to 7 points): FNA if more than or equal to 1 cm in maximum dimension, followup ultrasound every year for 5 years if 0.5 to 0.9 cm in maximum dimension. * TR3, TR4 or TR5 nodules that are below the size threshold for follow up receive no follow up.
== END 2021-12-22 14:35 | disposition home or self-care (01) ==
LOC: HO.HMGCX 14:34
PROVIDERS: Visit Provider Nurse Practitioner Family
DX: R22.1 Localized swelling, mass and lump, neck (principal)
CPT/HCPCS: 76536

== ENCOUNTER 2021-12-23 14:08 | Outpatient (REF) | payer MEDICARE, MEDICAID, SELFPAY ==
[2021-12-23 15:14] LABS: Estimated Average Glucose 91 mg/dL; Hemoglobin A1c % 4.8 %
[2021-12-23 15:18] LABS: Anion Gap 12 (12-20); Blood Urea Nitrogen 11 mg/dL (9-16); Calcium 9.4 mg/dL (8.4-10.2); Carbon Dioxide 25 mmol/L (22-29); Chloride 106 mmol/L (96-108); Estimated Glomerular Filt Rate 57; Glucose Random 88 mg/dL (60-115); Potassium 4.1 mmol/L (3.3-5.1); Sodium 139 mmol/L (135-145)
== END 2021-12-23 14:09 | disposition home or self-care (01) ==
LOC: HO.LAB 14:08
PROVIDERS: PCP Physician Assistant; Visit Provider Nurse Practitioner Family
DX: Z13.1 Encounter for screening for diabetes mellitus (principal); N64.52 Nipple discharge
CPT/HCPCS: 36415; 80048; 83036

== ENCOUNTER 2021-12-27 09:58 | Outpatient (REF) | payer MEDICARE, MEDICAID, SELFPAY ==
[2021-12-27 11:25] LABS: Alanine Aminotransferase 15 U/L (0-31); Albumin Level 4.2 g/dL (3.5-5.0); Alkaline Phosphatase 69 U/L (39-117); Anion Gap 13 (12-20); Aspartate Amino Transferase 14 U/L (5-31); Bilirubin Total 0.3 mg/dL (0.0-1.0); Blood Urea Nitrogen 12 mg/dL (9-16); Calcium 9.9 mg/dL (8.4-10.2); Carbon Dioxide 27 mmol/L (22-29); Chloride 106 mmol/L (96-108); Cholesterol 177 mg/dL; Estimated Glomerular Filt Rate 53; Glucose Fasting 80 mg/dL (60-99); HDL Cholesterol 50 mg/dL; LDL Cholesterol Calculated 111 mg/dl; Potassium 5.9 mmol/L (3.3-5.1); Sodium 140 mmol/L (135-145); Total Protein 6.8 g/dL (6.5-8.0); Triglycerides 80 mg/dL
== END 2021-12-27 09:59 | disposition home or self-care (01) ==
LOC: HO.LAB 09:58
PROVIDERS: PCP Physician Assistant; Visit Provider Physician Assistant
DX: Z13.220 Encounter for screening for lipoid disorders (principal); Z13.1 Encounter for screening for diabetes mellitus
CPT/HCPCS: 36415; 80053; 80061

== ENCOUNTER 2021-12-29 13:52 | Outpatient (REF) | payer MEDICARE, MEDICAID, SELFPAY ==
[2021-12-29 15:00] LABS: Anion Gap 12 (12-20); Carbon Dioxide 25 mmol/L (22-29); Chloride 106 mmol/L (96-108); Potassium 4.3 mmol/L (3.3-5.1); Sodium 139 mmol/L (135-145)
== END 2021-12-29 13:53 | disposition home or self-care (01) ==
LOC: HO.LAB 13:52
PROVIDERS: PCP Physician Assistant; Visit Provider Physician Assistant
DX: E87.5 Hyperkalemia (principal)
CPT/HCPCS: 36415; 80051

== ENCOUNTER 2021-12-30 11:03 | Outpatient (REF) | payer MEDICARE, MEDICAID, SELFPAY ==
--- NOTE | ~2021-12-30 | MR_ITS ---
EXAMINATION: MR BREAST WITHOUT AND WITH CONTRAST, BILATERAL CLINICAL INFORMATION: History of right breast nipple discharge. History of mammographically and sonographically occult palpable area, right breast. COMPARISON: Mammogram and ultrasound 12/20/2021 TECHNIQUE: Imaging was performed with a dedicated breast coil. Prior to the administration of contrast, bilateral axial T1 and bilateral axial T2 weighted sequences were obtained. After the uneventful administration of?7 mL of Gadavist, dynamic contrast-enhanced VIBRANT series through the breasts in the axial plane were performed. Subtracted images were performed and reviewed. A delayed sagittal sequence through both breasts was acquired. Additionally, CAD post-processing, including maximum intensity projections, 3-D reconstructions and kinetic analysis, were performed an independent workstation and reviewed by the interpreting radiologist is a portion of this exam. FINDINGS: The patient's fibroglandular tissue demonstrates moderate background enhancement. LEFT BREAST: In the subareolar region of the left breast there is a 5 mm oval focus of enhancement with a smaller adjacent focus (image 66, series 100). This represents dominant area of enhancement in the left breast. There is some increased signal intensity associated with this finding on the T2-weighted images. The kinetics are type II or plateau-type enhancement. In the absence of clinical symptoms, the finding is considered probably benign. Recommend follow-up in one year. Additional scattered foci of enhancement noted. No other suspicious nonmass or mass enhancement. Review of the T2-weighted images demonstrates a few areas of cystic change. Review of the kinetic images demonstrates no additional suspicious findings. RIGHT BREAST: No suspicious masslike or non-masslike enhancement. Specifically, no findings explain nipple discharge. No abnormal skin thickening or nipple retraction. No abnormal architectural distortion. Review of the T2 weighted images demonstrates no fibrocystic changes or dilated ducts. Review of kinetic images reveals no additional findings. There is no suspicious internal mammary chain or axillary adenopathy. Limited views of the chest and abdomen are unremarkable. MR/MR breast BI wo/w con IMPRESSION: No MRI explanation for right breast nipple discharge. Clinical follow-up recommended. Probably benign focus of enhancement, left breast, subareolar. ASSESSMENT: LEFT BREAST: BI-RADS 3 - Probably benign finding (s). Short interval followup suggested. RIGHT BREAST: BI-RADS 1-Negative RECOMMENDATIONS: Follow-up MRI in one year with attention to the probably benign finding in the subareolar region of the left breast.
== END 2021-12-30 11:04 | disposition home or self-care (01) ==
LOC: HO.MRI 11:03
PROVIDERS: PCP Physician Assistant; Visit Provider Nurse Practitioner Family
DX: N63.10 Unspecified lump in the right breast, unspecified quadrant (principal); N63.20 Unspecified lump in the left breast, unspecified quadrant; N64.52 Nipple discharge
CPT/HCPCS: 77049; A9585

== ENCOUNTER 2022-01-10 13:09 | Emergency (ER) | payer MEDICARE, MEDICAID, SELFPAY | END 2022-01-10 15:58 | disposition left against medical advice (07) | PROVIDERS: Emergency Provider Emergency Medicine; PCP Physician Assistant | DX: R22.1 Localized swelling, mass and lump, neck (principal) ==

== ENCOUNTER → 2022-01-18 15:00 | Outpatient (BNVA) | payer OTHER, SELFPAY | PROVIDERS: PCP Physician Assistant; Referring Provider Physician Assistant; Visit Provider Surgery | DX: E04.1 Nontoxic single thyroid nodule (principal); N63.20 Unspecified lump in the left breast, unspecified quadrant; N63.10 Unspecified lump in the right breast, unspecified quadrant | CPT/HCPCS: 99202 ==

== ENCOUNTER → 2022-01-20 08:15 | Outpatient (BNVA) | payer OTHER, SELFPAY | PROVIDERS: PCP Physician Assistant; Visit Provider Internal Medicine | DX: E04.2 Nontoxic multinodular goiter (principal); E55.9 Vitamin D deficiency, unspecified; N91.2 Amenorrhea, unspecified | CPT/HCPCS: Q3014 ==

== ENCOUNTER 2022-01-31 10:38 | Outpatient (REF) | payer OTHER, SELFPAY ==
--- NOTE | ~2022-01-31 | US_ITS ---
EXAMINATION: ULTRASOUND-GUIDED FINE-NEEDLE ASPIRATION CLINICAL INFORMATION: Thyroid nodules. COMPARISON: Previous thyroid ultrasound December 2021. TECHNIQUE: Procedure and risks and benefits including bleeding and infection were discussed with the patient and informed consent was obtained. The right neck and draped in the usual sterile fashion. Skin and soft tissues were anesthetized with 1% lidocaine plain. Using ultrasound guidance and a 25-gauge needle, access to the largest nodule in the right midpole was obtained. Two 25-gauge FNA specimens were obtained. The patient experienced extreme pain in the neck at the biopsy site, and deeper neck radiating to the right ear. Additional fine-needle aspiration was not attempted. FINDINGS: There is a 3.4 x 1.9 x 2.9 cm nodule in the mid right lobe was targeted for fine-needle aspiration. US/US guided fine needle asp IMPRESSION: Ultrasound-guided right mid thyroid nodule fine-needle aspiration.
[2022-01-31] MEDS: Lidocaine HCl 1 % MPF 5 ML VIAL SUBCUT (11:25)
== END 2022-01-31 10:39 | disposition home or self-care (01) ==
LOC: HO.US 10:38
PROVIDERS: Visit Provider Internal Medicine
DX: E04.2 Nontoxic multinodular goiter (principal)
CPT/HCPCS: 10005; 88172; 88173; 88177

== ENCOUNTER 2022-02-02 07:31 | Day surgery (SDC) | payer OTHER, SELFPAY ==
--- NOTE | 2022-02-01 09:35 | HO.ANESPROP2 ---
Documented by User: Fior Sun NP 02/01/22 09:37 HPI - Anesthesia Eval Consult details Narrative: 51yo F for Left Breast Mass Excision,skin lesion x 2 PMFSH Active Problems Active Problems: All Active Problems (Updated 01/20/22 @ 08:45 by Aydee Mckinney DO) Amenorrhea (Acute) Vitamin D deficiency (Acute) Multinodular thyroid (Acute) Nodule of right lobe of thyroid gland (Acute) Hyperkalemia (Acute) Nipple discharge (Acute) Lump on neck (Acute) Left breast lump (Acute) Lump of right breast (Acute) Constipation (Acute) Multiple sclerosis (Acute) Nausea (Acute) Obesity (Acute) Hand numbness (Acute) Screening for hypercholesterolemia (Acute) Breast cancer screening (Acute) Medicare annual wellness visit, initial (Acute) Screening for hypercholesterolemia (Acute) Screening for hypothyroidism (Acute) Screening for diabetes mellitus (DM) (Acute) MDD (major depressive disorder), recurrent episode, moderate (Acute) PINA (generalized anxiety disorder) (Acute) Osteoarthritis of right knee (Acute) Past Medical History Medical History Amenorrhea Multinodular thyroid Multiple sclerosis Obesity Seizures Stroke Vitamin D deficiency Family History Family History Mother Leukemia Skin cancer Father History of cancer of unknown primary site Paternal Uncle Bone cancer Paternal Grandfather Lung cancer Other Mental health disorder Substance use disorder Surgical History Surgical History H/O brain surgery History of cholecystectomy History of hysterectomy for indication other than malignancy History of tubal ligation History of wisdom tooth extraction Social History Social History Housing: Apartment Alcohol intake: never Patient Tobacco Use Status: Former Tobacco user Quit Date: 11 yrs ago Tobacco use type: Cigarette e-Cigarette/Vaping Use: Never Used Second Hand Smoke Exposure: Yes Use of substances other than those prescribed or required for medical reasons: No Are you DNR?: No Advance Directives: No Advance Directives Information Provided: Yes service: No Current occupational status: unemployed Cognitive needs: Yes Hearing needs: No Vision needs: No Meds Allergies Allergy/AdvReac Type Severity Reaction Status Date / Time aspirin [ASPIRIN] AdvReac Severe GI BLEEDING Verified 02/02/22 08:53 hydromorphone [From DILAUDID] AdvReac Severe VIOLENT Verified 02/02/22 08:53 NSAIDS (Non-Steroidal AdvReac Severe GI BLEEDING Verified 02/02/22 08:53 Anti-Inflamma [NSAIDS (NON-STEROIDAL ANTI-INFLAMMA] sertraline AdvReac Intermediate Itch Verified 02/02/22 08:53 oxycodone AdvReac Nausea and Verified 02/02/22 09:14 Vomiting penicillin Allergy Unknown Hives Uncoded 01/20/22 08:28 Home Medications Medication Instructions Recorded Confirmed Last Taken Type uxfqzvrljtft-Bd-vuob-minerals 1 tab PO DAILY tab 03/17/21 01/20/22 Unknown History (Multiple Vitamin, Womens) oxcarbazepine 300 mg tablet 300 mg PO BID 12/03/21 01/20/22 Unknown History Exam Exam Date and Time: February 01, 2022 0935 Pertinent Lab Results Pertinent Lab Results: Laboratory Tests 12/03/21 12/27/21 12/29/21 13:03 10:14 14:08 WBC 9.3 Hgb 14.7 Hct 44.1 Plt Count 279 Sodium 139 Potassium 4.3 D Chloride 106 Carbon Dioxide 25 BUN 12 Creatinine 1.10 Assessment and Plan Assessment Anesthesia Assessment: Chart Reviewed Documented by User: Destiny Mckeon MD 02/02/22 09:44 [facility] Past Medical History Medical History Amenorrhea Multinodular thyroid Multiple sclerosis Obesity Seizures Stroke Vitamin D deficiency Family History Family History Mother Leukemia Skin cancer Father History of cancer of unknown primary site Paternal Uncle Bone cancer Paternal Grandfather Lung cancer Other Mental health disorder Substance use disorder Surgical History Surgical History H/O brain surgery History of cholecystectomy History of hysterectomy for indication other than malignancy History of tubal ligation History of wisdom tooth extraction History of Problems with Anesthesia: No Social History Social History Housing: Apartment Alcohol intake: never Patient Tobacco Use Status: Former Tobacco user Quit Date: 11 yrs ago Tobacco use type: Cigarette e-Cigarette/Vaping Use: Never Used Second Hand Smoke Exposure: Yes Use of substances other than those prescribed or required for medical reasons: No Are you DNR?: No Advance Directives: No Advance Directives Information Provided: Yes service: No Current occupational status: unemployed Cognitive needs: Yes Hearing needs: No Vision needs: No Meds Allergies Allergy/AdvReac Type Severity Reaction Status Date / Time aspirin [ASPIRIN] AdvReac Severe GI BLEEDING Verified 02/02/22 08:53 hydromorphone [From DILAUDID] AdvReac Severe VIOLENT Verified 02/02/22 08:53 NSAIDS (Non-Steroidal AdvReac Severe GI BLEEDING Verified 02/02/22 08:53 Anti-Inflamma [NSAIDS (NON-STEROIDAL ANTI-INFLAMMA] sertraline AdvReac Intermediate Itch Verified 02/02/22 08:53 oxycodone AdvReac Nausea and Verified 02/02/22 09:14 Vomiting penicillin Allergy Unknown Hives Uncoded 01/20/22 08:28 Home Medications Medication Instructions Recorded Confirmed Last Taken Type opddsjylioft-Kt-fkhf-minerals 1 tab PO DAILY tab 03/17/21 01/20/22 Unknown History (Multiple Vitamin, Womens) oxcarbazepine 300 mg tablet 300 mg PO BID 12/03/21 01/20/22 Unknown History Exam Airway Mallampati Class: II TM Dist: >3cm Neck ROM: Full Loose/Missing/Broken Teeth: No Heart: RRR Lungs: CTA Assessment and Plan Assessment Anesthesia Assessment: Anesthesia Plan Discussed Final Anesthetic Review History of Problems with Anesthesia: No NPO: Yes ASA Class: III Final Preanesthetic Review: Meds/Allgs Chart Reviewed, Consent Obtained/Reviewed and Anes Risks/Benef Reviewed Patient Risk: Intermediate Procedure Risk: Low Anesthetic Plan Anesthetic Plan: GA Disposition: Standard PACU
[2022-02-02] VITALS (13 sets, daily range): BP systolic 107–139; BP diastolic 62–89; PULSE 60–85; RESP 16–20; TEMP 36.4–36.6; O2SAT 95–100; BMI 25.9
[2022-02-02] MEDS: vancomycin HCL 1,000 MG in 0.9 % Sodium Chloride 250 ML 270 MG IV (08:09)
[2022-02-02] MEDS: Lactated Ringers 1,000 ML 100 ML IVCONT (08:09)
--- NOTE | 2022-02-02 08:46 | MHC.SHP ---
Pre-Procedural Eval Section A Date of Service: 02/02/22 The patient is an INPATIENT: No Changes since office visit: Yes Patient answered all questions; No Cold of Flu in the past 2 weeks, No New Medical Problems and No Changes in Medication The History & Physical has been completed within 30 days and I have reviewed it.: Yes Section B Chief Complaint: Unspecified lump in the left breast,quadrant Allergies: Allergies Allergy/AdvReac Type Severity Reaction Status Date / Time aspirin [ASPIRIN] AdvReac Severe GI BLEEDING Verified 01/20/22 08:28 hydromorphone [From DILAUDID] AdvReac Severe VIOLENT Verified 01/20/22 08:28 NSAIDS (Non-Steroidal AdvReac Severe GI BLEEDING Verified 01/20/22 08:28 Anti-Inflamma [NSAIDS (NON-STEROIDAL ANTI-INFLAMMA] sertraline AdvReac Intermediate Itch Verified 01/20/22 08:28 penicillin Allergy Unknown Hives Uncoded 01/20/22 08:28 Plan Diagnosis/Plan: Unchanged I have reviewed the history and physical and performed a pertinent physical examination on my patient. No changes have occurred unless specified.
--- NOTE | 2022-02-02 10:09 | P.OP_ITS ---
Operative Note Operative Note Date of Service: 02/02/22 Narrative: Preoperative diagnosis: Left breast lump, skin lesion x 2 left breast Postoperative diagnosis:same Procedure:Excision of left breast skin lesion x 2, Left breast lumpectomy Surgeon: Sami Parkinson MD Web Applications Architect: none'= Anesthesia:General LMA Indications for procedure: 51-year-old female patient presenting with a palpable mass in the left breast in 2 skin lesions which she is concerned due to her previous history of cancer. Operative findings: Left breast lump, skin changes x2 Specimen: Skin lesion left sternum, skin lesion left breast, left breast lump and Estimated blood loss: 2 mL Complications: None Procedure details: Patient was brought to the OR placed in a supine position. After administering general anesthesia the patient's left breast was prepped with ChloraPrep and draped in a sterile fashion. A surgical time-out was called the consent confirmed. Patient received preoperative antibiotics and Venodyne boots were in place. Local anesthesia consisting of 0.25% Sensorcaine was then infiltrated around all 3 lesions. Elliptical incision was then made around the left sternal lesion oriented transversely. This was carried out through subcutaneous tissue. Lesion measured approximately 5 mm in diameter. This was carried down through subcutaneous tissue in the lesion excised. After assuring adequate hemostasis with electrocautery, the skin was closed using interrupted 4-0 Polysorb sutures. Attention was then directed to the left breast skin lesion located just above the nipple nipple-areolar complex. Again a elliptical incision was then created oriented laterally. This carried out through subcutaneous tissue and around this skin lesion. This was passed off table and sent to pathology for further examination. A curvilinear incision was then made just above the nipple-areolar complex in the 12 o'clock position. This was carried out through subcutaneous tissue. Superior inferior skin flaps were then created. A core tissue around the palpable mass which was a cord-like structure at the 12 o'clock position was then excised. This was sent to pathology as left breast lump. After assuring adequate hemostasis the deep breast tissue was reapproximated using interrupted 3-0 Polysorb sutures. Dermis was reapproximated using interrupted 3-0 Polysorb sutures. Skin was then closed using a running subcuticular 4-0 Polysorb suture. Steri-Strips 2 x 2 gauze and Tegaderm were then applied. The patient tolerated the procedure well. Sponge, instrument, and needle counts reported as correct. The patient was transferred to PACU in stable condition.
[2022-02-02] MEDS: fentaNYL citrate/PF 100 MCG/2 ML VIAL 50 MCG IVPUSH (10:31)
[2022-02-02] MEDS: fentaNYL citrate/PF 100 MCG/2 ML VIAL 25 MCG IVPUSH ×2 (10:41→10:48)
== END 2022-02-02 12:11 | disposition home or self-care (01) ==
PROVIDERS: PCP Physician Assistant; Visit Provider Surgery
PROC: (CPT 19120; principal; 2022-02-02 09:10)
DX: N60.12 Diffuse cystic mastopathy of left breast (principal); N60.82 Other benign mammary dysplasias of left breast; L81.4 Other melanin hyperpigmentation; Z79.899 Other long term (current) drug therapy; G35 Multiple sclerosis; R56.9 Unspecified convulsions; E04.1 Nontoxic single thyroid nodule; Z86.73 Personal history of transient ischemic attack (TIA), and cerebral infarction without residual deficits; Z90.49 Acquired absence of other specified parts of digestive tract; Z98.890 Other specified postprocedural states; Z87.891 Personal history of nicotine dependence
CPT/HCPCS: 19301; 11400; 11401; 88304; 88305; 88307; J0131; J1100; J2250; J2405; J3010; J3370

== ENCOUNTER 2022-02-08 09:16 | Outpatient (REF) | payer OTHER, SELFPAY ==
[2022-02-08 11:07] LABS: Albumin Level 4.3 g/dL (3.5-5.0); Estimated Glomerular Filt Rate > 60
[2022-02-08 11:22] LABS: Free T4 (Free Thyroxine) 1.22 ng/dL (0.71-1.85); Vitamin D 25-OH Total 17.3 ng/mL (>30)
[2022-02-09 08:51] LABS: Sex Hormone Binding Globulin 27 nmol/L (17-124)
[2022-02-09 08:56] LABS: Follicle Stimulating Hormone 47.8 mIU/mL; Lutenizing Hormone 22.1 mIU/mL
[2022-02-10 13:12] LABS: PTHI 39 pg/mL (16-77)
[2022-02-11 23:21] LABS: Estradiol Ultra Sensitive 5 pg/mL
== END 2022-02-08 09:17 | disposition home or self-care (01) ==
LOC: HO.LAB 09:16
PROVIDERS: PCP Physician Assistant; Visit Provider Internal Medicine
DX: N91.2 Amenorrhea, unspecified (principal); E55.9 Vitamin D deficiency, unspecified; E04.2 Nontoxic multinodular goiter
CPT/HCPCS: 36415; 82040; 82306; 82565; 82670; 83001; 83002; 83970; 84100; 84270; 84439; 84443

== ENCOUNTER → 2022-02-10 14:10 | Outpatient (BNVA) | payer OTHER, SELFPAY | PROVIDERS: PCP Physician Assistant; Referring Provider Physician Assistant; Visit Provider Surgery | DX: Z48.817 Encounter for surgical aftercare following surgery on the skin and subcutaneous tissue (principal); Z87.2 Personal history of diseases of the skin and subcutaneous tissue | CPT/HCPCS: 99212 ==

== ENCOUNTER 2022-02-11 15:13 | Outpatient (REF) | payer OTHER, SELFPAY ==
--- NOTE | ~2022-02-11 | CT_ITS ---
EXAMINATION: CT SOFT TISSUE NECK WITHOUT CONTRAST CLINICAL INFORMATION: Nontoxic multinodular goiter. COMPARISON: Ultrasound report from 12/22/2021. TECHNIQUE: Helical imaging was performed in the axial plane with generation of coronal and sagittal reformatted images. This CT examination was performed using dose optimization techniques as appropriate, variously including the following: *Automated exposure control *Adjustment of mA and/or kV according to patient size (this includes techniques or standardized protocols for targeted exams where dose is matched to indication/reason for exam; i.e. extremities or head) *Use of iterative reconstruction technique DLP: 263 mGy-cm FINDINGS: The thyroid gland is diffusely heterogeneous with asymmetric enlargement of the right thyroid lobe due to a 2.4 x 3.6 cm nodule demonstrating central low density and stippled calcifications. No tracheal deviation or compression evident. No pathologically enlarged cervical lymph nodes are identified. 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 The imaged mediastinum is otherwise normal. The visualized portions of the lungs are clear. No acute osseous abnormality is seen. The laryngeal structures appear normal. The oral cavity and pharyngeal mucosal space are grossly unremarkable on this limited noncontrast study. The parotid and submandibular glands appear normal. There is elongation of the styloid processes bilaterally with ossification of the stylohyoid ligaments. Scattered dental caries are noted with periodontal and periapical lucencies. The mastoid air cells are well aerated. There is a small retention cyst in the right maxillary antrum. The remaining paranasal sinuses are well aerated. The visualized orbits appear normal. There is chronic cystic encephalomalacia partially visualized in the left occipital lobe which is contiguous with the occipital horn of the left lateral ventricle. CT/CT soft tissue neck wo con IMPRESSION: Heterogeneous thyroid gland with a dominant 2.4 x 3.6 cm central low density nodule and stippled calcifications in the right thyroid lobe. No cervical adenopathy. No tracheal deviation or compression.
== END 2022-02-11 15:14 | disposition home or self-care (01) ==
LOC: HO.CT 15:13
PROVIDERS: PCP Physician Assistant; Visit Provider Internal Medicine
DX: E04.2 Nontoxic multinodular goiter (principal)
CPT/HCPCS: 70490

== ENCOUNTER → 2022-02-15 10:44 | Outpatient (BNVA) | payer OTHER, SELFPAY | PROVIDERS: PCP Physician Assistant; Visit Provider Internal Medicine | DX: E04.2 Nontoxic multinodular goiter (principal); E55.9 Vitamin D deficiency, unspecified; E28.39 Other primary ovarian failure | CPT/HCPCS: Q3014 ==

== ENCOUNTER 2022-02-23 14:27 | Outpatient (REF) | payer OTHER, SELFPAY ==
--- NOTE | ~2022-02-23 | MM_ITS ---
EXAMINATION: BONE DENSITOMETRY CLINICAL INDICATION: Other primary ovarian failure. COMPARISON: None (current study represents initial baseline exam). TECHNIQUE: Using a [employer] DXA System (software version: 13.1) manufactured by [employer], dual-energy x-ray absorptiometry was performed of the lumbar spine, left hip, and left forearm radius 33%. The images are of good technical quality. Summary results are attached. FINDINGS: AP SPINE L1-L4: BMD 1.299 g/cm2, Z-score 1.0, T-score 1.0, normal. LEFT FEMUR, NECK: BMD 0.915 g/cm2, Z-score -0.3, T-score -0.9, normal. LEFT FEMUR, TOTAL: BMD 0.927 g/cm2, Z-score -0.5, T-score -0.6, normal. LEFT FOREARM RADIUS 33%: BMD 0.915 g/cm2, Z-score 0.5, T-score 0.4, normal. IDENTIFIED RISK FACTORS: Early menopause, secondary osteoporosis, hysterectomy, bilateral oophorectomy, anticonvulsants. HISTORY OF FRACTURE: Thumb. MEDICATIONS: None listed. MM/XR DEXA appendicular skeleton IMPRESSION: 1. DIAGNOSIS: Normal bone density based on the lowest T-score value of -0.9 in the femoral neck applying World Health Organization criteria. 2. 10-YEAR FRACTURE RISK PREDICTION, FRAX: According to the guidelines, FRAX calculation should only be performed on patients in the osteopenia bone density category. Therefore, FRAX was not performed on this patient. 3. Treatment Recommendations: NOF guidelines recommend consideration for treatment in postmenopausal women and men age 50 and older presenting with the following: -A hip or vertebral (clinical or morphometric) fracture. -T-score less than or equal to -2.5 at the femoral neck or spine after appropriate evaluation to exclude secondary causes. -Low bone mass at the hip or spine and a 10-year fracture probability by FRAX of greater than or equal to 3% for hip fracture or greater than or equal to 20% for major osteoporotic fracture based on the [place] adapted WHO algorithm. 4. Other Recommendations: All treatment decisions require clinical judgment and consideration of individual patient factors, including patient preferences, comorbidities, previous drug use, risk factors not captured in the FRAX model (e.g. frailty, falls, vitamin D deficiency, increased bone turnover, interval significant decline in bone density) and possible under or overestimation of fracture risk by FRAX. FUTURE SCAN RECOMMENDATION: People with diagnosed cases of osteoporosis or at high risk for fracture should have regular bone mineral density tests. For patients eligible for Medicare, routine testing is allowed once every 2 years. The testing frequency can be increased to one year for patients who have rapidly progressing disease, those who are receiving or discontinuing medical therapy to restore bone mass, or have additional risk factors.
== END 2022-02-23 14:28 | disposition home or self-care (01) ==
LOC: HO.MAMMO 14:27
PROVIDERS: PCP Physician Assistant; Visit Provider Internal Medicine
DX: Z13.820 Encounter for screening for osteoporosis (principal); E28.39 Other primary ovarian failure; Z78.0 Asymptomatic menopausal state; Z79.899 Other long term (current) drug therapy
CPT/HCPCS: 77081

== ENCOUNTER 2022-07-28 11:13 | Outpatient (REF) | payer OTHER, SELFPAY ==
--- NOTE | 2022-07-28 12:01 | P.BOP_ITS ---
Brief Operative Note Date of Service: 07/28/22 Pre-op diagnosis: Multinodular Thyroid Procedure: This is doctor Aydee Mckinney. This is an ultrasound-guided fine-needle aspiration report. Date of Examination: Indication: Multinodular Thyroid Porcedure: Procedure was explained to the patient. Alternatives, the risk and benefits were discussed. Written consent was obtained. A time-out was also obtained. After sterile preparation, fine-needle aspiration of a left lower pole 2.2 cm thyroid nodule was performed using direct ultrasound guidance to confirm accurate needle placement. Four aspirations were made using 27 gauge needles. An additional aspiration was made using a 25 guage needle. Samples were submitted for cytology. One pass was dedicated for [employer] sequencing maintenance carpenter testing. Our attention was then turned to the right lower pole. Fine-needle aspiration of a right lower pole 1.6 cm thyroid nodule was performed using direct ultrasound guidance to confirm accurate needle placement. Four aspirations were made using 27 gauge needles. An additional aspiration was made using a 25 guage needle. Samples were submitted for cytology. One pass was dedicated for [employer] sequencing maintenance carpenter testing. The patient tolerated the procedure well. Aftercare instructions were provided. Impression: Uncomplicated fine needle aspiration biopsy of a left lower pole 2.2 cm and a right lower pole 1.6 cm thyroid nodule under ultrasound guidance. Surgeon: Aydee Mckinney, DO Was an Supervising Fire Marshal used for this Procedure?: No Estimated blood loss (mL): 0
[2022-07-28] MEDS: Lidocaine HCl 1 % MPF 5 ML VIAL SUBCUT (12:49)
== END 2022-07-28 11:14 | disposition home or self-care (01) ==
LOC: HO.US 11:13
PROVIDERS: Visit Provider Internal Medicine
DX: E04.2 Nontoxic multinodular goiter (principal)
CPT/HCPCS: 10005; 10006; 88172; 88173; 88177

== ENCOUNTER 2022-08-10 12:28 | Outpatient (REF) | payer OTHER, SELFPAY ==
[2022-08-10 14:28] LABS: Free T4 (Free Thyroxine) 1.08 ng/dL (0.71-1.85); Vitamin D 25-OH Total 12.9 ng/mL (>30)
== END 2022-08-10 12:29 | disposition home or self-care (01) ==
LOC: HO.LAB 12:28
PROVIDERS: PCP Physician Assistant; Visit Provider Internal Medicine
DX: E04.2 Nontoxic multinodular goiter (principal); E55.9 Vitamin D deficiency, unspecified; E28.39 Other primary ovarian failure
CPT/HCPCS: 36415; 82306; 84439; 84443; 99212

== ENCOUNTER 2022-11-23 14:58 | Outpatient (REF) | payer OTHER, SELFPAY ==
--- NOTE | ~2022-11-23 | US_ITS ---
EXAMINATION: US THYROID CLINICAL INFORMATION: Nontoxic multinodular goiter. COMPARISON: CT soft tissue neck without contrast 02/11/2022. US-guided thyroid biopsy 01/31/2022. Ultrasound thyroid 12/22/2021. TECHNIQUE: Linear transducer grayscale and color Doppler examination with attention to the region of the thyroid. FINDINGS: SIZE: Measurements of the thyroid lobes and nodules are given in sagittal, anteroposterior and transverse dimensions respectively. Right Thyroid Lobe: 5.5 x 2.1 x 2.8 cm, volume 16.9 mL. Previously 5.9 x 1.9 x 2.5 cm, volume 14.6 mL. Parenchyma: The gland echotexture is heterogeneous. Thyroid vascularity is normal. Left Thyroid Lobe: 5.5 x 1.5 x 1.5 cm, volume 6.5 mL. Previously 6.1 x 1.6 x 1.7 cm, volume 8.2 mL. Parenchyma: The gland echotexture is homogeneous. Thyroid vascularity is normal. Isthmus: 0.4 cm in maximum AP dimension. Previously 0.3 cm. Estimated total number of nodules greater than or equal to 1 cm: 2. Digital Advertising Analyst nodules are described as follows: 1. Location: Right superior mid. Size: 3.6 x 1.8 x 2.8 cm, volume 9.5 mL. Previously: 3.4 x 1.8 x 2.7 cm, volume 8.7 mL. Nodule characteristics: Composition: Mixed cystic and solid (1). Echogenicity: Isoechoic (1). Shape: Not taller than wide (0). Margins: Smooth (0). Echogenic Foci: None (0). ACR TI-RADS total points: 2 Previous: 7 ACR TI-RADS category: 2 Previous: 5 Significant change in size (>/= 20% in 2 dimensions and minimal increase of 2 mm or 50% or greater increase in volume): No change. Change in features: No change Change in ACR TI-RADS risk category: Decrease in the total points. This nodule has been biopsied previously and no cytological atypia was seen on pathology. 2. Location: Right inferior. Size: 1.4 x 0.8 x 1.0 cm, volume 0.6 mL. Previously: 1.6 x 0.84 x 1.1 cm, volume 0.75 mL. Nodule characteristics: Composition: Solid (2). Echogenicity: Hypoechoic (2). Shape: Not taller than wide (0). Margins: Ill-defined (0). Echogenic Foci: None (0). ACR TI-RADS total points: 4 Previous: 4 ACR TI-RADS category: 4 Previous: 4 Significant change in size (>/= 20% in 2 dimensions and minimal increase of 2 mm or 50% or greater increase in volume): None Change in features: None Change in ACR TI-RADS risk category: No change. 3. Location: Left inferior. Size: 0.8 x 0.8 x 1.1 cm, volume 0.4 mL. Previously: Not documented on the previous study. Nodule characteristics: Composition: Solid/almost completely solid (2). Echogenicity: Isoechoic (1). Shape: Not taller than wide (0). Margins: Ill-defined (0). Echogenic Foci: None (0). ACR TI-RADS total points: 3 ACR TI-RADS category: 3 4. Location: Left inferior. Size: 1.0 x 0.8 x 0.8 cm, volume 0.3 mL. Previously: Not documented on the previous study. Nodule characteristics: Composition: Solid/almost completely solid (2). Echogenicity: Hyperechoic (1). Shape: Not taller than wide (0). Margins: Ill-defined (0). Echogenic Foci: None (0). ACR TI-RADS total points: 3 ACR TI-RADS category: 3 NODES: No lymphadenopathy is seen in the tissue surrounding the thyroid gland. US/US thyroid IMPRESSION: Heterogeneous right thyroid lobe is large, midpole nodule, which is stable and has been biopsied previously 01/31/2022. The other nodule in right lobe is stable. There are 2 subcentimeter nodules left lobe, nonsuspicious. ACR TI-RADS RECOMMENDATION REFERENCE: Ultrasound-guided fine-needle aspiration, followup ultrasound, no further follow up. * TR1 (0 point) and TR2 (2 points): No FNA or follow up. * TR3 (3 points): FNA if more than or equal to 2.5 cm in maximum dimension, followup ultrasound in 1, 3 and 5 years if 1.5 to 2.4 cm in maximum dimension. * TR4 (4-6 points): FNA if more than or equal to 1.5 cm in maximum dimension, followup ultrasound in 1, 2, 3 and 5 years if 1 to 1.4 cm in maximum dimension. * TR5 (more than or equal to 7 points): FNA if more than or equal to 1 cm in maximum dimension, followup ultrasound every year for 5 years if 0.5 to 0.9 cm in maximum dimension. * TR3, TR4 or TR5 nodules that are below the size threshold for followup receive no follow up.
== END 2022-11-23 14:59 | disposition home or self-care (01) ==
LOC: HO.US 14:58
PROVIDERS: PCP Physician Assistant; Visit Provider Internal Medicine
DX: E04.2 Nontoxic multinodular goiter (principal)
CPT/HCPCS: 76536

== ENCOUNTER 2023-04-12 08:40 | Outpatient (AMB) | payer OTHER, SELFPAY ==
--- NOTE | 2023-04-12 08:40 | A.OFFVIS_ITS ---
Intake Intake Visit Reasons: F/U NTMNG Allergies aspirin [ASPIRIN] Adverse Reaction (Severe, Verified 04/12/23 08:50) GI BLEEDING hydromorphone [From DILAUDID] Adverse Reaction (Severe, Verified 04/12/23 08:50) VIOLENT NSAIDS (Non-Steroidal Anti-Inflamma [NSAIDS (NON-STEROIDAL ANTI-INFLAMMA] Adver se Reaction (Severe, Verified 04/12/23 08:50) GI BLEEDING sertraline Adverse Reaction (Intermediate, Verified 04/12/23 08:50) Itch oxycodone Adverse Reaction (Verified 04/12/23 08:50) Nausea and Vomiting penicillin Allergy (Unknown, Uncoded 04/12/23 08:50) Hives Medication List - Last Reconciled 04/12/23 by Aydee Mckinney DO cholecalciferol (vitamin D3) 50 mcg PO DAILY 30 days citalopram (Celexa) 10 mg PO DAILY 30 days sglvzaialzgh-Hu-ablq-minerals (Multiple Vitamin, Womens tablet) 1 tab PO DAILY omeprazole 20 mg PO DAILY oxcarbazepine 600 mg PO BID 90 days HPI HPI Comments History of Present Illness Details 52 YO F with a PMHx of multiple sclerosis who is seen in F/U for a NTMNG. Was initially diagnosed with multinodular thyroid in December 2021 with thyroid US revealing a multinodular thyroid. She underwent FNA biopsy 01/31/2022 by interventional radiology of her right mid pole 3.4 cm thyroid nodule with benign cytology. She additionally meets criteria for FNA biopsy of her right lower pole 1.6 cm and left lower pole 2.2 cm thyroid nodules, but was unable to tolerate this due to pain. She then underwent FNA boipsy of her LLP 2.2 cm and RLP 1.6 cm thyroid nodules 07/28/2022 by nm. Cytology was benign for both nodules. Currently does report dysphagia and hoarseness of voice. Does report a sensation of swelling in the neck and difficulty breathing while lying flat. Does report tenderness in the neck. She also reports a new lump on the back of her neck on the left side. She reports it is firm. She had a CT of the neck completed 02/11/2022 which revealed no mass effect from the thyroid. She does report weight loss, hair loss and dry skin. She reports she underwent menopause at the age of 37. Recent BMD revealed no evidence of Osteoporosis. Denies any history of head or neck irradiation. Denies any family history of thyroid cancer. Thyroid US: 11/23/2022 Right Thyroid Lobe: 5.5 x 2.1 x 2.8 cm, volume 16.9 mL. Previously 5.9 x 1.9 x 2.5 cm, volume 14.6 mL. Parenchyma: The gland echotexture is heterogeneous. Thyroid vascularity is normal. Left Thyroid Lobe: 5.5 x 1.5 x 1.5 cm, volume 6.5 mL. Previously 6.1 x 1.6 x 1.7 cm, volume 8.2 mL. Parenchyma: The gland echotexture is homogeneous. Thyroid vascularity is normal. Isthmus: 0.4 cm in maximum AP dimension. Previously 0.3 cm. Estimated total number of nodules greater than or equal to 1 cm: 2. Blackjack Supervisor nodules are described as follows: 1.? Location: Right superior mid. ?? ? Size: 3.6 x 1.8 x 2.8 cm, volume 9.5 mL. ?? ? Previously: 3.4 x 1.8 x 2.7 cm, volume 8.7 mL. ?? ? Nodule characteristics: ?? ? Composition: Mixed cystic and solid (1). ?? ? Echogenicity: Isoechoic (1). ?? ? Shape: Not taller than wide (0). ?? ? Margins: Smooth (0). ?? ? Echogenic Foci: None (0).? ACR TI-RADS total points: 2 Previous: 7 ?? ? ACR TI-RADS category: 2 Previous: 5 ? Significant change in size (>/= 20% in 2 dimensions and minimal increase of 2 mm or 50% or greater increase in volume): No change. ?? ? Change in features: No change ?? ? Change in ACR TI-RADS risk category: Decrease in the total points. This nodule has been biopsied previously and no cytological atypia was seen on pathology. 2.? Location: Right inferior. ?? ? Size: 1.4 x 0.8 x 1.0 cm, volume 0.6 mL. ?? ? Previously: 1.6 x 0.84 x 1.1 cm, volume 0.75 mL. ?? ? Nodule characteristics: ?? ? Composition: Solid (2). ?? ? Echogenicity: Hypoechoic (2). ?? ? Shape: Not taller than wide (0). ?? ? Margins: Ill-defined (0). ?? ? Echogenic Foci: None (0). ? ACR TI-RADS total points: 4 Previous: 4 ?? ? ACR TI-RADS category: 4 Previous: 4 ? Significant change in size (>/= 20% in 2 dimensions and minimal increase of 2 mm or 50% or greater increase in volume): None ?? ? Change in features: None ?? ? Change in ACR TI-RADS risk category: No change. 3.? Location: Left inferior. ?? ? Size: 0.8 x 0.8 x 1.1 cm, volume 0.4 mL. ?? ? Previously: Not documented on the previous study. ?? ? Nodule characteristics: ?? ? Composition: Solid/almost completely solid (2). ?? ? Echogenicity: Isoechoic (1). ?? ? Shape: Not taller than wide (0). ?? ? Margins: Ill-defined (0). ?? ? Echogenic Foci: None (0). ? ACR TI-RADS total points: 3 ?? ? ACR TI-RADS category: 3 ?? ? 4.? Location: Left inferior. ?? ? Size: 1.0 x 0.8 x 0.8 cm, volume 0.3 mL. ?? ? Previously: Not documented on the previous study. ?? ? Nodule characteristics: ?? ? Composition: Solid/almost completely solid (2). ?? ? Echogenicity: Hyperechoic (1). ?? ? Shape: Not taller than wide (0). ?? ? Margins: Ill-defined (0). ?? ? Echogenic Foci: None (0). ? ACR TI-RADS total points: 3 ?? ? ACR TI-RADS category: 3 ?? ? NODES: No lymphadenopathy is seen in the tissue surrounding the thyroid gland. CT Neck: 02/11/2022 FINDINGS: The thyroid gland is diffusely heterogeneous with asymmetric enlargement of the right thyroid lobe due to a 2.4 x 3.6 cm nodule demonstrating central low density and stippled calcifications. No tracheal deviation or compression evident. No pathologically enlarged cervical lymph nodes are identified. 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 The imaged mediastinum is otherwise normal. The visualized portions of the lungs are clear. No acute osseous abnormality is seen. The laryngeal structures appear normal. The oral cavity and pharyngeal mucosal space are grossly unremarkable on this limited noncontrast study. The parotid and submandibular glands appear normal. There is elongation of the styloid processes bilaterally with ossification of the stylohyoid ligaments. Scattered dental caries are noted with periodontal and periapical lucencies. The mastoid air cells are well aerated. There is a small retention cyst in the right maxillary antrum. The remaining paranasal sinuses are well aerated. The visualized orbits appear normal. There is chronic cystic encephalomalacia partially visualized in the left occipital lobe which is contiguous with the occipital horn of the left lateral ventricle. CT/CT soft tissue neck wo con IMPRESSION: Heterogeneous thyroid gland with a dominant 2.4 x 3.6 cm central low density nodule and stippled calcifications in the right thyroid lobe. No cervical adenopathy. No tracheal deviation or compression. Labs: Laboratory Tests 02/08/22 02/08/22 09:58 09:58 TSH 0.30 L Free T4 1.22 Estradiol Ultra LC MSMS 5 FSH 47.8 Luteinizing Hormon e 22.1 PFSH Medical History Amenorrhea Disorder of bone density and structure, unspecified Multinodular thyroid Multiple sclerosis Obesity Primary ovarian failure Seizures Stroke Vitamin D deficiency Surgical History H/O brain surgery History of biopsy History of cholecystectomy History of hysterectomy for indication other than malignancy History of lumpectomy of left breast (02/02/22) History of tubal ligation History of wisdom tooth extraction Hx of ingrown nail Family History Mother Leukemia Skin cancer Father History of cancer of unknown primary site Paternal Uncle Bone cancer Paternal Grandfather Lung cancer Other Mental health disorder Substance use disorder Social History Housing: Apartment Alcohol intake: never Patient Tobacco Use Status: Current everyday Tobacco user Tobacco use type: Cigarette Cigarettes Per Day: 15 e-Cigarette/Vaping Use: Never Used Second Hand Smoke Exposure: Yes service: No Current occupational status: unemployed Cognitive needs: Yes Hearing needs: No Vision needs: Yes (glasses) Assessment & Plan Assessment & Plan (1) Multinodular thyroid: Code(s): E04.2 - Nontoxic multinodular goiter Plan: She underwent FNA biopsy of her RMP 3.4 cm thyroid nodule by IR, with benign cytology. She then underwent FNA biopsy fo her LLP 2.2 cm and RLP 1.6 cm thyroid nodules 07/28/2022 by me, with benign cytology. Her CT of the neck revealed no mass effect from the thyroid. She is due for a repeat TSH, which has been ordered. I asked her to have this drawn today. I have ordered an US head and neck to evaluate the L sided lump she is describing. I have asked for this to be scheduled YULISSA. I have also messaged her PCP regarding this. All of her questions were answered. She is in agreement with this plan of care. I spent 20 minutes in reviewing the record, seeing the patient and documenting in the medical record, including 5 minutes on the phone with the Patient. Orders: Orders US soft tiss head and/or neck Today E04.2 - Nontoxic multinodular goiter Free T4 (Free Thyroxine) Today E04.2 - Nontoxic multinodular goiter Thyroid Stimulating Hormone Today E04.2 - Nontoxic multinodular goiter Telehealth Telehealth Location of provider rendering services: practice address Location of patient: address on file Patient Identification confirmed using: Name, : Yes Telehealth method: voice only Patient verbally consented to treatment: Yes Patient verbally consented to billing insurance company: Yes Patient informed of any privacy concerns related to visit: Yes Coding Level of Care Code Tele Est Pt Level 3 (90974) Diagnoses Multinodular thyroid E04.2
--- OUTSIDE RECORDS SUMMARY | 2023-04-12 08:41 | XMS_ITS | Continuity of Care Document ---
Author Name Unknown Organization [facility] Address [address] [place] [address]- Care Team Providers Care Waste Water Treatment Plant Operator Name Role Phone Alexa Bautista MD Primary Care Physician [phone] Encounter [facility] Date(s): 10/30/19 - 11/09/19 [facility] [address] [place] [address]- [facility] Attending Physician: Admtr, Ar8 Allergies, Adverse Reactions, Alerts Substance Reaction Severity Status ibuprofen 1 Active penicillin rash Active aspirin Active Dilaudid Active Percocet 7.5/325 Active traMADOL itching Active 1gastric ulcer Immunizations Given and Recorded Vaccine Date Status Refusal Reason influenza virus vaccine, inactivated 1 07/06/[address] influenza virus vaccine, inactivated 08/28/15 Give n influenza virus vaccine, inactivated 08/01/14 Give n influenza virus vaccine, inactivated 2 06/19/[address] tetanus/diphtheria/pertussis, acel(Tdap) 08/28/15 Given pneumococcal 23-valent vaccine 05/18/13 Given 1Result Comment: [07/06/2017] [facility]:[id number] 2Result Comment: [06/19/2013] [facility] aspirin 81 mg oral tablet, chewable 1 tablet = 81 mg, By Mouth, Daily, # 100 tablet, 3 Refills, Maintenance, 07/28/14 13:18:51, Chew Tablet, Pharmacy never received, 1 tablet By Mouth Daily Start Date: 07/28/14 Status: Ordered Cane See Instructions, # 1 units, Maintenance, Quad cane for balance and safety., 05/14/13 14:11:36, Compound Start Date: 05/14/13 Status: Ordered DX left sided weakness past stroke DX left sided weakness past stroke, See Instructions, # 1 each, Refills 0, Tot. Refills 0, Maintenance, Dx left sided numbness past stroke pt no longer can use quad cane and has decompinsated as to needing a seat four wheeled walker, 05/22/13 15:54:0... Start Date: 05/22/13 Status: Ordered omeprazole 20 mg oral enteric coated capsule 1 capsule = 20 mg, By Mouth, Daily, # 90 capsule, 0 Refills, Maintenance, 02/18/19 12:21:47 EDT, ECCapsule Start Date: 02/18/19 Stop Date: 05/19/19 Status: Ordered Safety Frame for toilet Safety Frame for toilet, See Instructions, # 2 each, Refills 0, Tot. Refills 0, Maintenance, DX: 434.91 CVA 345 Seizures, 12/25/14 12:15:29, Compound Start Date: 12/25/14 Status: Ordered traZODone 50 mg oral tablet See Instructions, 1/2 to 1 tab po qhs, # 30 tablet, Refills 1, Tot. Refills 1, Maintenance, 09/25/18 15:08:11 EST, Instructions Replace Required Details, Route to Pharmacy Electronically, [id number], [facility]/pharmacy #2024 Start Date: 09/25/18 Status: Ordered Vimpat 100 mg oral tablet 1 tablet = 100 mg, By Mouth, 2 times a day, # 60 tablet, 5 Refills, Maintenance, 01/26/16 11:02:11,Tablet Start Date: 01/26/16 Status: Ordered Zofran ODT 4 mg oral tablet, disintegrating 1 tablet = 4 mg, By Mouth, Every 8 hours, PRN as needed for nausea/vomiting, # 12 tablet, 0 Refills, Maintenance, 10/18/19 11:02:00 EST, DIS Tablet, [facility]/pharmacy #2024, 163.4, cm, 10/18/19 10:44:00 EST, Height Start Date: 10/18/19 Stop Date: 10/21/19 Status: Ordered Problem List Condition Effective Dates Status Health Status Inform ant Anxiety(Confirmed) Active Cigarette smoker(Confirmed) Active Depression(Confirmed) Active Generalized seizure disorder(Confirmed) Active Cognitive deficit S/P CVA (cerebrovascular accident)(Confirmed) Active Migraine(Confirmed) Active Social History Social History Type Response Smoking Status Never smoker; Tobacc o user in household: Yes; Other: smokes; entered on: 03/28/14 Sex
--- OUTSIDE RECORDS SUMMARY | 2023-04-12 08:41 | XMS_ITS | Continuity of Care Document ---
Author Name Unknown Organization [facility] Address Unknown Care Team Providers Care Teacher Citizenship Name Role Phone Ayush Monreal Primary Care Physician [phone] [place] [facility] [place] 11/24/21 - 12/24/21 [facility] Allergies, Adverse Reactions, Alerts Substance Reaction Severity [...] 23-valent vaccine 05/18/13 Given 1Result Comment: [07/06/2017] [facility]:[id number] 2Result Comment: [06/19/2013] [facility] aspirin [...] Replace Required Details, Route to Pharmacy Electronically, [id number], [facility]/pharmacy #2024 Start Date: 09/25/18 Status: Ordered [...] Refills, Maintenance, 10/18/19 11:02:00 EST, DIS Tablet, [facility]/pharmacy [facility]2024, 163.4, cm, 10/18/19 10:44:00 EST, Height [...]
--- OUTSIDE RECORDS SUMMARY | 2023-04-12 08:41 | XMS_ITS | Continuity of Care Document ---
Author Name Unknown Organization [facility] Address [address] [place] [address]- Care Team Providers Care Quencher Operator Name Role Phone Alexa Bautista MD Primary Care Physician [phone] Encounter [facility] Date(s): 10/18/19 - 10/28/19 [facility] [address] [place] [address]- [facility] Attending Physician: Jonathan Sparks Admitting Physician: Jonathan Sparks Referring Physician: AdmtrJonathan Allergies, Adverse Reactions, Alerts Substance Reaction Severity [...] 23-valent vaccine 05/18/13 Given 1Result Comment: [07/06/2017] [facility]:[id number] 2Result Comment: [06/19/2013] [facility] aspirin [...] Replace Required Details, Route to Pharmacy Electronically, [id number], [facility]/pharmacy #2024 Start Date: 09/25/18 Status: Ordered [...] Refills, Maintenance, 10/18/19 11:02:00 EST, DIS Tablet, [facility]/pharmacy #2024, 163.4, cm, 10/18/19 10:44:00 EST, [...]
--- OUTSIDE RECORDS SUMMARY | 2023-04-12 08:41 | XMS_ITS | Continuity of Care Document ---
Author Name Unknown Organization [facility] Address [address] [place] [address]- Care Team Providers Care Storage Facility Rental Clerk Name Role Phone Alexa Bautista MD Primary Care Physician [place] [facility] Date(s): 10/11/19 - 11/29/19 [facility] [address] [place] [address]- [facility] Attending Physician: Alexa Bautista MD Allergies, Adverse Reactions, Alerts Substance Reaction Severity [...] 23-valent vaccine 05/18/13 Given 1Result Comment: [07/06/2017] [facility]:[id number] 2Result Comment: [06/19/2013] [facility] aspirin [...] Replace Required Details, Route to Pharmacy Electronically, [id number], [facility]/pharmacy #2024 Start Date: 09/25/18 Status: Ordered [...] Refills, Maintenance, 10/18/19 11:02:00 EST, DIS Tablet, [facility]/pharmacy #2024, 163.4, cm, 10/18/19 10:44:00 EST, [...]
--- OUTSIDE RECORDS SUMMARY | 2023-04-12 08:41 | XMS_ITS | Continuity of Care Document ---
Author Name Unknown Organization [facility] Address [address] [place] [id number]- Care Team Providers Care State Patrol Officer Name Role Phone Michele JAMES, Alexa Primary Care Physician Encounter [facility] Date(s): 10/18/19 - 10/18/[address] [address]- [facility] Attending Physician: Lauren Neal MD Allergies, Adverse Reactions, Alerts Substance Reaction [...] 23-valent vaccine 05/18/13 Given 1Result Comment: [07/06/2017] [facility]:[id number] 2Result Comment: [06/19/2013] [facility] acetaminophen 325 mg oral tablet 650 mg, 2, tablet, By Mouth, 4 times a day, PRN, for 5 days, # 50 tablet, Refills 0, Tot. Refills 0, Acute 10/23/19 11:02:00 EST, as needed for pain, 10/18/19 11:02:00 EST, Route to Pharmacy Electronically, [facility]/pharmacy #2025, 163.4, cm, 10/18/19 10:4... Start Date: 10/18/19 Stop Date: 10/23/19 Status: Ordered aspirin 81 mg oral tablet, chewable 1 [...] Replace Required Details, Route to Pharmacy Electronically, [id number], [facility]/pharmacy #2024 Start Date: 09/25/18 Status: Ordered [...] Maintenance, 10/18/19 11:02:00 EST, DIS Tablet, [facility], 163.4, cm, 10/18/19 10:44:00 EST, Height Start [...]
--- OUTSIDE RECORDS SUMMARY | 2023-04-12 08:41 | XMS_ITS | Continuity of Care Document ---
Author Name Unknown Organization [facility] Address [address] [place] [address]- Care Team Providers Care Solar Energy Sales Specialist Name Role Phone Alexa Bautista MD Primary Care Physician Encounter [facility] Date(s): 10/18/19 - 10/25/19 [facility] [address] [place] [address]- [facility] Attending Physician: Lauren Neal MD Referring Physician: Alexa Bautista MD Allergies, Adverse Reactions, [...] 23-valent vaccine 05/18/13 Given 1Result Comment: [07/06/2017] [facility]:[id number] 2Result Comment: [06/19/2013] [facility] aspirin [...] traZODone 50 mg oral tablet See Instructions, 09/12 to 1 tab po qhs, # 30 tablet, Refills 1, Tot. Refills 1, Maintenance, 09/25/18 15:08:11 EST, Instructions Replace Required Details, Route to Pharmacy Electronically, [id number], [facility]/pharmacy #2024 Start Date: 09/25/18 Status: Ordered Vimpat [...] Refills, Maintenance, 10/18/19 11:02:00 EST, DIS Tablet, [facility]/pharmacy #2024, 163.4, cm, 10/18/19 10:44:00 EST, Height Start Date: 10/18/19 Stop Date: 10/21/19 Status: Ordered Problem List Condition Effective Dates Status Health Status Inform ant Anxiety(Confirmed) Active Cigarette smoker(Confirmed) Active Depression(Confirmed) Active Generalized seizure disorder(Confirmed) Active Cognitive deficit S/P CVA (cerebrovascular accident)(Confirmed) Active Migraine(Confirmed) Active Vital Signs Most recent to oldest [Reference Range]: 1 Height 163.4 cm (10/18/19 10:44 AM) Oxygen Saturation [94-100 %] 100 % (10/18/19 10:44 AM) Pulse Rate [55-90 bpm] 95 bpm *H* (10/18/19 10:44 AM) Blood Pressure [90-138/55-84 mm Hg] 150/ 93mm Hg *H* (10/18/19 10:44 AM) Respiratory Rate [16-30 br/min] 16 br/mi n (10/18/19 10:44 AM) Temperature [96.8-100.4 DegF] 97.9 DegF (10/18/19 10:44 AM) Mode of Delivery (Oxygen) Room air (10/18/19 10:44 AM) Blood pressure sites Arm, left (10/18/19 10:44 AM) Temperature Route Oral (10/18/19 10:44 AM) Social History Social History Type Response Smoking Status Never smoker; Tobacc o user in household: Yes; Other: smokes; entered on: 03/28/14 Sex
== END 2023-04-12 09:00 | disposition home or self-care (01) ==
LOC: HO.ENCR 08:40
PROVIDERS: PCP Physician Assistant; Visit Provider Internal Medicine
DX: E04.2 Nontoxic multinodular goiter (principal)
CPT/HCPCS: 99443

== ENCOUNTER 2023-04-12 08:40 | Outpatient (REF) | payer OTHER, SELFPAY ==
[2023-04-12 16:27] LABS: Free T4 (Free Thyroxine) 1.02 ng/dL (0.71-1.85)
== END 2023-04-12 08:41 | disposition home or self-care (01) ==
LOC: HO.LAB 08:40
PROVIDERS: PCP Physician Assistant; Visit Provider Internal Medicine
DX: E04.2 Nontoxic multinodular goiter (principal)
CPT/HCPCS: 36415; 84439; 84443

== ENCOUNTER 2023-04-18 15:15 | Outpatient (AMB) | payer OTHER, SELFPAY ==
--- NOTE | 2023-04-18 15:17 | A.OFFPC_ITS ---
Vital Signs 04/18/23 15:18 Height 5 ft 3 in Weight 155 lb BMI 27.5 BP 120/70 Blood Pressure Location Rt brachial Position Sitting Pulse 86 Pulse Source Pulse Oximeter Pulse Oximetry (%) 97 Intake Visit Reasons: PE Intake Note: pt is here for physical exam Executive Asst Required: No Accompanied by: Spouse Allergies aspirin [ASPIRIN] Adverse Reaction (Severe, Verified 04/18/23 15:27) GI BLEEDING hydromorphone [From DILAUDID] Adverse Reaction (Severe, Verified 04/18/23 15:27) VIOLENT NSAIDS (Non-Steroidal Anti-Inflamma [NSAIDS (NON-STEROIDAL ANTI-INFLAMMA] Adverse Reaction (Severe, Verified 04/18/23 15:27) GI BLEEDING sertraline Adverse Reaction (Intermediate, Verified 04/18/23 15:27) Itch oxycodone Adverse Reaction (Verified 04/18/23 15:27) Nausea and Vomiting penicillin Allergy (Unknown, Uncoded 04/12/23 08:50) Hives Medication List - Last Reconciled 04/18/23 by Ayush Cope PA-C cholecalciferol (vitamin D3) 50 mcg PO DAILY 30 days citalopram (Celexa) 10 mg PO DAILY 30 days wbnyhlojsehu-Cg-ghca-minerals (Multiple Vitamin, Womens tablet) 1 tab PO DAILY omeprazole 20 mg PO DAILY oxcarbazepine 600 mg PO BID 90 days Tobacco use date assessed: 12/13/22 Dental Screening Dental Screen Date: 04/18/23 Did you have a dental visit in the last 12 months?: No Did you have a dental problem in the last 6 months where you did not have access to dental care?: No Was dental information given to patient?: Patient declined HPI PE HPI Details Patient is a 52 year-old female here today for follow-up visit on her anxiety.? Patient has a past medical history significant for seizure disorder, PTSD, major depressive disorder, thyroid nodules, generalized anxiety. Concern--> she reports she has noted to lumps over left posterior aspect of her neck over the last few weeks. She reports the subcutaneous lumps are somewhat tender to palpation. Patient's mission analyst has ordered an soft tissue ultrasound of the area which will be on today. .. Seizures disorder:? Patient followed by Neurology now continues on oxycarb with good effect.? Denies any recent seizures. Major depressive disorder:? She reports she continues to feel fairly depressed, she has previous trauma of a daughter whom of an overdose 3 years ago.? Anniversaries are hard.? Has tried to establish with mental health therapist though did not feel comfortable with this.. Otherwise has a supportive . .. Tobacco dependency:? Continues to smoke half pack of cigarettes per day. She does understand she needs to quit smoking though at this time finds it very difficult to quit., she is willing to try generic Chantix to help quit smoking. .. Thyroid nodules:? Patient followed by endocrinology, recently had ultrasound of thyroid showing -- >Heterogeneous right thyroid lobe is large, midpole nodule, which is stable and has been biopsied previously 01/31/2022. Has been having a mass over the right posterior aspect of her neck and reports difficulty swallowing. Ultrasound of thyroid showing stable nodules and has followed up with Endocrinology about this. Colon cancer screening: Would like to do cologaurd Mammogram: Needs mammo Site Acquisition Manager: has had hysterectomy. Vaccines: Up-to-date with pneumonia vaccine, COVID vaccine. Considering shingles vaccine [facility] Medical History (Updated 04/19/23 @ 07:16 by Ayush Cope PA-C) Amenorrhea Disorder of bone density and structure, unspecified Nausea Obesity Primary ovarian failure Seizures Stroke Vitamin D deficiency Surgical History H/O brain surgery History of biopsy History of cholecystectomy History of hysterectomy for indication other than malignancy History of lumpectomy of left breast (02/02/22) History of tubal ligation History of wisdom tooth extraction Hx of ingrown nail Family History Mother Leukemia Skin cancer Father History of cancer of unknown primary site Paternal Uncle Bone cancer Paternal Grandfather Lung cancer Other Mental health disorder Substance use disorder Social History (Updated 04/18/23 @ 15:35 by Ayush Cope PA-C) Housing: Apartment Alcohol intake: never Patient Tobacco Use Status: Current everyday Tobacco user Tobacco use type: Cigarette Cigarettes Per Day: 10 e-Cigarette/Vaping Use: Never Used Second Hand Smoke Exposure: Yes service: No Current occupational status: employed 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 Reza Blandon, Brielle Ureña, Edilberto Erickson and colleagues, with an educational hemalatha from [employer]. Review of Systems Const Denies body aches, Denies chills, Denies excessive sweating, Denies fatigue, Denies fever(s) and Denies headache(s) Eyes Denies blurry vision ENT Denies dysphagia, Denies vertigo, Denies dizziness, Denies headache(s), Denies hearing loss and Denies tinnitus Card Denies chest pain, Denies chest pain with activity, Denies syncope, Denies irregular heart rhythm and Denies dyspnea Resp Denies chest congestion, Denies cough, Denies hemoptysis, Denies dyspnea and Denies wheezing GI Denies abdominal pain, Denies melena, Denies hematochezia, Denies coffee ground emesis, Denies dysphagia, Denies diarrhea, Denies nausea and Denies vomiting Denies urinary frequency, Denies dysuria, Denies urinary hesitancy and Denies urinary urgency Musc Denies arthralgias, Denies limited range of motion, Denies muscle cramps and Denies muscle weakness Skin/Breast Denies rash and Denies skin ulcer Neuro Denies Abnormal speech present, Denies confusion, Denies vertigo, Denies dizziness, Denies syncope, Denies headache(s), Denies memory loss and Denies seizure-like activity Psych Reports anxiety, Denies confusion, Reports depression, Denies memory loss, Denies panic attacks and Denies paranoia Endo Denies excessive sweating, Denies fatigue, Denies flushing, Denies polydipsia and Denies polyuria Aller/Immun Denies wheezing Physical exam (Primary Care) Vital Signs: Last Vital Signs Pulse 86 04/18/23 15:18 BP 120/70 04/18/23 15:18 Pulse Ox 97 04/18/23 15:18 BMI result Body Mass Index 27.5 Tobacco/Smoking Status: Tobacco use Status Tobacco use date assessed 12/13/22 04/18/23 15:18 Patient Tobacco Use Status Current everyday Tobacco 04/18/23 15:35 Tobacco use type Cigarette 04/18/23 15:35 e-Cigarette/Vaping Use Never Used 04/18/23 15:35 Are you ready to quit: Yes Tobacco cessation counseling provided: Yes Relapse Prevention: discussed the importance of a supportive environment, discussed negative mood or depression after quitting, weight gain after smoking is common and discussed dietary, exercise and/or lifestyle changes Number of minutes spent counselin CPT code: 76635 - 4-10 Minutes Thrive Assessment: Date of Thrive Assessment Date Thrive assessed 12/13/22 04/18/23 15:18 Const General: cooperative, comfortable, no acute distress, alert and awake; No confus ion Orientation/consciousness: oriented to person, oriented to place, patient oriented x3 and No confusion HENMT Head: Yes normocephalic Ears: external ears normal and TM's normal bilaterally Face and sinus: No sinus tenderness Mouth: Normal oral and palatal mucosa present and tongue normal Teeth and gingiva: dentition normal and gingiva normal Throat: Yes posterior oropharynx normal, Yes tonsils normal and Yes uvula midline Eyes Conjunctivae: conjunctivae normal Sclerae: sclerae normal Pupils: Equal, round and reactive pupils present EOM: EOMs intact bilaterally Direct Ophthalmoscopy: No no photophobia Neck Neck: Yes no lymphadenopathy, No tender and Yes no JVD Thyroid: Thyroid normal Carotids: no bruits Neck images: 2 1. LARGE SUBCUTANEOUS CYSTIC/BOIL LIKE SKIN LESION. ALSO WITH SOME DISTAL ? LYMPHADENOPATHY Chest Chest palpation & inspection: no tenderness Resp Effort & Inspection: normal respiratory effort, no audible wheezes, not labored and no stridor Auscultation: no crackles, no rales, no rhonchi and no wheezes Cardio Jugular venous distension: no JVD Rate: regular rate, not bradycardic and not tachycardic Rhythm: regular rhythm Bruits: no carotid bruits Peripheral pulses: Peripheral pulses 2+ throughout GI Inspection: Yes normal to inspection, No abdominal wall ecchymosis and No visible herniation Palpation (GI): Soft to palpation, nontender, no guarding, not rigid and No hepatosplenomegaly present Auscultation: normoactive bowel sounds General: Yes no CVA tenderness Back/Spine/Pelvis Back: no CVA tenderness and No back tenderness Cervical Spine: cervical ROM normal Thoracic/Lumbar Spine: thoracic and lumbar spine normal to inspection, straight leg raise negative bilaterally, No thoraco-lumbar ROM limited and No lumbar spinal tenderness Skin Lesions: no lesions Rashes: no rashes Wounds: no wounds Neuro General: oriented to person, oriented to place, patient oriented x3, CN's II-XI intact bilaterally and No confusion Cranial nerves: Yes Equal, round and reactive pupils present and Yes Normal accommodation reflex present Cognition (Neuro): normal cognition Speech: No Abnormal speech present Gait exam (Neuro): Normal gait present Motor exam (neuro): 5/5 motor strength present throughout Extrem Right upper extremity: full ROM; no cyanosis Left upper extremity: full ROM; no cyanosis Right lower extremity: no edema Left lower extremity: no edema Psych Appearance: grossly normal Mental Status: mental status grossly normal Affect: normal affect Attitude: cooperative Thought process: Normal thought process present Assessment and Plan Assessment & Plan (1) Annual physical exam: Code(s): Z00.00 - Encounter for general adult medical examination without abnormal findings (2) Subcutaneous cyst: Code(s): L72.9 - Follicular cyst of the skin and subcutaneous tissue, unspecified Plan: Has large subcutaneous cyst like mass over left posterior neck. Has ultrasound today to evaluate. Does seem to have some reactive lymph nodes with a posterior cervical chain as well. Will refer to general surgeon for evaluation of possible removal this subc utaneous mass. (3) Tobacco dependence: Code(s): F17.200 - Nicotine dependence, unspecified, uncomplicated Plan: Patient does understand she needs to quit smoking. Currently smoking half pack a cigarettes per day. She is willing to try nicotine gum and try generic Chantix to help her quit smoking. (4) Colon cancer screening: Code(s): Z12.11 - Encounter for screening for malignant neoplasm of colon Plan: Willing to do Cologuard (5) MDD (major depressive disorder), recurrent episode, moderate: Code(s): F33.1 - Major depressive disorder, recurrent, moderate Plan: Continues to manage her mental health with the support of her in the use of Celexa daily. She feels she is stable. She continues to have grief due to the loss of her daughter 3 years ago. (6) Seizures: Code(s): R56.9 - Unspecified convulsions Plan: Patient followed by Neurology. Continues on oxy carbamazepine and has not reported any recent seizures. (7) Nodule of right lobe of thyroid gland: Code(s): E04.1 - Nontoxic single thyroid nodule Plan: Patient followed by endocrinology and most recent thyroid ultrasound showing stable nodules. Nodules have been biopsied in the past with benign findings. Otherwise TSH and T4 normal. Orders: Orders Comprehensive Helper. Panel Fast 04/18/23 Z13.1 - Encounter for screening for diabetes mellitus Complete Blood Count no Diff 04/18/23 Z13.1 - Encounter for screening for diabet es mellitus MM screening mammo BI 04/18/23 Z12.31 - Encounter for screening mammogram for malignant neoplasm of breast, Z12.39 - Encounter for other screening for malignant neoplasm of breast Referrals General Surgery Referral L72.9 - Follicular cyst of the skin and subcutaneous tissue, unspecified Medications: New nicotine (polacrilex) 2 mg buccal Q2H 15 days PRN 110 ea 0RF nicotine cravings F17.200 - Nicotine dependence, unspecified, uncomplicated varenicline 0.5 mg PO; Take 0.5 mg qd x 3 days, then 0.5 mg b.i.d. x4 days 7 days 11 tabs 0RF F17.200 - Nicotine dependence, unspecified, uncomplicated varenicline 1 mg PO BID 28 days 56 tabs 3RF F17.200 - Nicotine dependence, unspecified, uncomplicated Refilled cholecalciferol (vitamin D3) 50 mcg PO DAILY 30 days 30 caps 11RF E55.9 - V itamin D deficiency, unspecified Coding Level of Care Code Est Pt Prev Care 40-64y(88310) Diagnoses Annual physical exam Z00.00 Subcutaneous cyst L72.9 Tobacco dependence F17.200 Colon cancer screening Z12.11 MDD (major depressive disorder), recurrent episode, moderate F33.1 Seizures R56.9 Nodule of right lobe of thyroid gland E04.1 Additional Codes Vital Signs *Quality* - CPT code: 32852 - 4-10 Minutes ([id number])
[2023-04-18 15:18] VITALS: BP 120/70; PULSE 86; O2SAT 97; BMI 27.5
== END 2023-04-18 16:00 | disposition home or self-care (01) ==
PROVIDERS: Visit Provider Physician Assistant
DX: Z00.00 Encounter for general adult medical examination without abnormal findings (principal); F33.1 Major depressive disorder, recurrent, moderate; F17.210 Nicotine dependence, cigarettes, uncomplicated; R56.9 Unspecified convulsions; E04.1 Nontoxic single thyroid nodule; L72.9 Follicular cyst of the skin and subcutaneous tissue, unspecified; Z12.11 Encounter for screening for malignant neoplasm of colon
CPT/HCPCS: 99396; 99406

== ENCOUNTER 2023-04-18 16:00 | Outpatient (REF) | payer OTHER, SELFPAY ==
--- NOTE | ~2023-04-18 | US_ITS ---
EXAMINATION: US SOFT TISSUE NECK CLINICAL INFORMATION: History of nontoxic multinodular goiter now with palpable soft tissue mass on left neck. COMPARISON: Ultrasound soft tissue head/neck thyroid dated 11/23/2022 and 12/22/2021. CT soft tissue neck without contrast dated 02/11/2022 TECHNIQUE: Ultrasound of the left lateral neck soft tissues is performed with high- frequency servin-scale imaging and color Doppler. FINDINGS: LEFT NECK SOFT TISSUES: Within the cervix level VA, a 1.5 x 0.8 x 1.3 cm complex cystic and solid lesion is seen. This abuts the deep dermal margin and extends into the subcutaneous layer. There is no sinus tract noted. There is mild peripheral color Doppler flow. Further cervical lymph nodes are noted, as follows: Level IIA: 1.0 x 0.4 x 0.5 cm. Reniform with poor corticomedullary differentiation and a vascular hilum. Level III: 1.4 x 0.9 x 1.3 cm. Reniform with poor corticomedullary differentiation and a vascular hilum. Level VA: 1.0 x 0.5 x 0.8 cm. Reniform with poor corticomedullary differentiation. No vascular hilum is demonstrated. Level VA: 0.6 x 0.4 x 0.6 cm. Reniform with poor corticomedullary differentiation. No vascular hilum is demonstrated. US/US soft tiss head and/or neck IMPRESSION: 1. A complex cystic and solid lesion is seen within left cervical level VA, corresponding with the palpable finding. This could represent an epidermal inclusion cyst or possibly a necrotic lymph node. Recommend management on a clinical basis. If clinically indicated, further evaluation of the neck soft tissues and nodes may be performed with CT soft tissue neck with intravenous contrast. 2. Further mildly enlarged left cervical lymph nodes are noted, as detailed. The largest is at level III. Again, recommend management on a clinical basis, with consideration for follow-up imaging.
== END 2023-04-18 16:01 | disposition home or self-care (01) ==
LOC: HO.US 16:00
PROVIDERS: PCP Physician Assistant; Visit Provider Internal Medicine
DX: E04.2 Nontoxic multinodular goiter (principal)
CPT/HCPCS: 76536

== ENCOUNTER 2023-05-02 13:03 | Outpatient (REF) | payer OTHER, SELFPAY | END 2023-05-02 13:04 | disposition home or self-care (01) | LOC: HO.LNP 13:03 | PROVIDERS: PCP Physician Assistant; Referring Provider Physician Assistant; Visit Provider Surgery | DX: L72.3 Sebaceous cyst (principal); L08.9 Local infection of the skin and subcutaneous tissue, unspecified | CPT/HCPCS: 10060; 87070; 87205; 99202 ==

== ENCOUNTER 2023-05-02 13:03 | Outpatient (AMB) | payer OTHER, SELFPAY ==
[2023-05-02 13:05] VITALS: BP 123/75; PULSE 76; BMI 27.3
--- NOTE | 2023-05-02 13:05 | A.OFFVIS_ITS ---
Intake Vital Signs 05/02/23 13:05 Height 5 ft 3 in Weight 154 lb BMI 27.3 BP 123/75 Blood Pressure Location Rt brachial Position Sitting Pulse 76 Intake Visit Reasons: Mass/ lump- Lt post neck Intake Note: This patient presents for an assessment for a mass/lump on the left posterior neck. Patient c/o; lump on the left posterior neck which patient reports opened yesterday 05/01/23 and was draining, denies pain or soreness at this time, denies feeling feverish or having chills. Cash Reconciliation Specialist Required: No Accompanied by: Self / Same As Patient Allergies aspirin [ASPIRIN] Adverse Reaction (Severe, Verified 05/02/23 13:10) GI BLEEDING hydromorphone [From DILAUDID] Adverse Reaction (Severe, Verified 05/02/23 13:10) VIOLENT NSAIDS (Non-Steroidal Anti-Inflamma [NSAIDS (NON-STEROIDAL ANTI-INFLAMMA] Adverse Reaction (Severe, Verified 05/02/23 13:10) GI BLEEDING sertraline Adverse Reaction (Intermediate, Verified 05/02/23 13:10) Itch oxycodone Adverse Reaction (Verified 05/02/23 13:10) Nausea and Vomiting penicillin Allergy (Unknown, Uncoded 05/02/23 13:10) Hives Medication List - Last Reconciled 05/02/23 by Kirby Villalobos MD cholecalciferol (vitamin D3) 50 mcg PO DAILY 30 days citalopram (Celexa) 10 mg PO DAILY 30 days lubodwmchfaf-Iu-olmb-minerals (Multiple Vitamin, Womens tablet) 1 tab PO DAILY nicotine (polacrilex) 2 mg buccal Q2H PRN 15 days omeprazole 20 mg PO DAILY oxcarbazepine 600 mg PO BID 90 days HPI HPI Comments History of Present Illness Details Patient presents with a slit again other with a several day history of left posterior neck infected sebaceous cyst. It is increasing in size, become more symptomatic. Chart was reviewed and patient evaluated [facility] Medical History (Updated 04/19/23 @ 07:16 by Ayush Cope PA-C) Amenorrhea Disorder of bone density and structure, unspecified Nausea Obesity Primary ovarian failure Seizures Stroke Vitamin D deficiency Surgical History H/O brain surgery History of biopsy History of cholecystectomy History of hysterectomy for indication other than malignancy History of lumpectomy of left breast (02/02/22) History of tubal ligation History of wisdom tooth extraction Hx of ingrown nail Family History Mother Leukemia Skin cancer Father History of cancer of unknown primary site Paternal Uncle Bone cancer Paternal Grandfather Lung cancer Other Mental health disorder Substance use disorder Social History Housing: Apartment Alcohol intake: never Patient Tobacco Use Status: Current everyday Tobacco user Tobacco use type: Cigarette Cigarettes Per Day: 10 e-Cigarette/Vaping Use: Never Used Second Hand Smoke Exposure: Yes service: No Current occupational status: employed 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 Office Procedures I&D Drain Details: Risks, benefits, alternatives of incision and drainage of left posterior neck sebaceous cyst reviewed the patient and included but not limited to bleeding, infection, recurrence, numbness, pain, scarring the patient was to proceed. All questions were answered. After appropriate positioning, patient underwent 1% lidocaine Betadine prep and uneventful incision and drainage of left posterior neck infected sebaceous cyst abscess. Cultures were obtained. Wound was drained of purulence, irrigated, secured hemostasis, and packed and sterile dressing applied. Patient tolerated procedure well. [id number]-Cmbwklbj of Skin Abscess, simple All charges added?: Procedure code (CPT) selection complete Assessment & Plan Assessment & Plan (1) Infected sebaceous cyst: Code(s): L72.3 - Sebaceous cyst; L08.9 - Local infection of the skin and subcutaneous tissue, unspecified Plan: Patient's significant other have been given local wound instructions, arrangements for packing changes through the office, analgesics, and antibiotics. Patient will see me as directed or p.r.n. Orders: Orders AMB Incision & Drainage Today L08.9 - Local infection of the skin and subcutaneous tissue, unspecified, L72.3 - Sebaceous cyst Medications: New hydrocodone-acetaminophen 5-325 mg Partial Fill upon patient request. 1 tab PO Q4-6H PRN 30 tabs 0RF pain Coding Level of Care Code New Pt Level 4 (39003) Diagnoses Infected sebaceous cyst L72.3; L08.9 CPT Codes I&D Drain - Drain 1: 36196-[place]otbata of Skin Abscess, simple ([id number])
== END 2023-05-02 13:47 | disposition home or self-care (01) ==
PROVIDERS: PCP Physician Assistant; Referring Provider Physician Assistant; Visit Provider Surgery
DX: L72.3 Sebaceous cyst (principal); L08.9 Local infection of the skin and subcutaneous tissue, unspecified
CPT/HCPCS: 10060; 99204

== ENCOUNTER → 2023-05-03 13:20 | Outpatient (BNVA) | payer OTHER, SELFPAY | PROVIDERS: PCP Physician Assistant; Visit Provider Surgery | DX: Z48.01 Encounter for change or removal of surgical wound dressing (principal) | CPT/HCPCS: 99211 ==

== ENCOUNTER → 2023-05-04 14:36 | Outpatient (BNVA) | payer OTHER, SELFPAY | PROVIDERS: PCP Physician Assistant; Visit Provider Surgery | DX: Z48.00 Encounter for change or removal of nonsurgical wound dressing (principal); Z87.2 Personal history of diseases of the skin and subcutaneous tissue | CPT/HCPCS: 99211 ==

== ENCOUNTER → 2023-05-05 09:28 | Outpatient (BNVA) | payer OTHER, SELFPAY | PROVIDERS: PCP Physician Assistant; Visit Provider Surgery | DX: Z48.01 Encounter for change or removal of surgical wound dressing (principal) | CPT/HCPCS: 99211 ==

== ENCOUNTER 2023-05-12 10:42 | Outpatient (AMB) | payer OTHER, SELFPAY ==
[2023-05-12 10:48] VITALS: BP 131/74; PULSE 85; BMI 27.3
--- NOTE | 2023-05-12 10:48 | MHC.OFFVIS ---
Intake Vital Signs 05/12/23 10:48 Height 5 ft 3 in Weight 154 lb BMI 27.3 BP 131/74 Blood Pressure Location Rt brachial Position Sitting Pulse 85 Intake Visit Reasons: s/p I&D neck abscess Intake Note: Patient here s/p I&D on Lt post neck. Patient reports site healing well. C/o tenderness to touch. Denies bleeding or oozing. Transport Company Manager Required: No Accompanied by: Spouse Allergies aspirin [ASPIRIN] Adverse Reaction (Severe, Verified 05/12/23 10:50) GI BLEEDING hydromorphone [From DILAUDID] Adverse Reaction (Severe, Verified 05/12/23 10:50) VIOLENT NSAIDS (Non-Steroidal Anti-Inflamma [NSAIDS (NON-STEROIDAL ANTI-INFLAMMA] Adverse Reaction (Severe, Verified 05/12/23 10:50) GI BLEEDING sertraline Adverse Reaction (Intermediate, Verified 05/12/23 10:50) Itch oxycodone Adverse Reaction (Verified 05/12/23 10:50) Nausea and Vomiting penicillin Allergy (Unknown, Uncoded 05/12/23 10:50) Hives HPI HPI Comments History of Present Illness Details Patient presents with her significant other for follow-up status post I&D left neck infected sebaceous cyst. She has no wound issues or complaints. Symptoms are markedly improved. [facility] Medical History Amenorrhea Disorder of bone density and structure, unspecified Nausea Obesity Primary ovarian failure Seizures Stroke Vitamin D deficiency Surgical History H/O brain surgery History of biopsy History of cholecystectomy History of hysterectomy for indication other than malignancy History of lumpectomy of left breast (02/02/22) History of tubal ligation History of wisdom tooth extraction Hx of ingrown nail Family History Mother Leukemia Skin cancer Father History of cancer of unknown primary site Paternal Uncle Bone cancer Paternal Grandfather Lung cancer Other Mental health disorder Substance use disorder Social History Housing: Apartment Alcohol intake: never Patient Tobacco Use Status: Current everyday Tobacco user Tobacco use type: Cigarette Cigarettes Per Day: 10 e-Cigarette/Vaping Use: Never Used Second Hand Smoke Exposure: Yes service: No Current occupational status: employed 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 Granulating almost to completion. No evidence of any infection Assessment & Plan Assessment & Plan (1) Infected sebaceous cyst: Code(s): L72.3 - Sebaceous cyst; L08.9 - Local infection of the skin and subcutaneous tissue, unspecified Plan Patient is continue local therapy. We discussed excising this cyst to prevent recurrence. Risks, benefits, alternatives of this reviewed the patient and included but not limited to bleeding, infection, recurrence, numbness, pain, scarring the patient was to proceed. Arrangements were made for this in approximately 3 weeks time. During this interim, should be any wound issues or complaints, patient struck to call the office or follow-up p.r.n.. Coding Level of Care Code Global (22672) Diagnoses Infected sebaceous cyst L72.3; L08.9
== END 2023-05-12 10:53 | disposition home or self-care (01) ==
PROVIDERS: PCP Physician Assistant; Visit Provider Surgery
DX: L72.3 Sebaceous cyst (principal); L08.9 Local infection of the skin and subcutaneous tissue, unspecified
CPT/HCPCS: 99024

== ENCOUNTER → 2023-05-12 10:42 | Outpatient (BNVA) | payer OTHER, SELFPAY | PROVIDERS: PCP Physician Assistant; Visit Provider Surgery ==

== ENCOUNTER → 2023-06-05 13:45 | Outpatient (BNV) | payer OTHER, SELFPAY | PROVIDERS: PCP Physician Assistant; Visit Provider Internal Medicine | DX: R59.0 Localized enlarged lymph nodes (principal); E04.1 Nontoxic single thyroid nodule | CPT/HCPCS: 99204 ==

== ENCOUNTER 2023-06-07 11:24 | Outpatient (AMB) | payer OTHER, SELFPAY ==
[2023-06-07 11:30] VITALS: BP 142/67; PULSE 97; BMI 27.1
--- NOTE | 2023-06-07 11:30 | A.OFFVIS_ITS ---
Intake Vital Signs 06/07/23 11:30 Height 5 ft 3 in Weight 153 lb BMI 27.1 BP 142/67 H Blood Pressure Location Rt brachial Position Sitting Pulse 97 Intake Visit Reasons: Exc Lt post neck~ EIC Intake Note: Patient here for exc of cyst on let post neck. Optical Effects Line Up Person Required: No Accompanied by: Spouse Allergies aspirin [ASPIRIN] Adverse Reaction (Severe, Verified 06/07/23 11:31) GI BLEEDING hydromorphone [From DILAUDID] Adverse Reaction (Severe, Verified 06/07/23 11:31) VIOLENT NSAIDS (Non-Steroidal Anti-Inflamma [NSAIDS (NON-STEROIDAL ANTI-INFLAMMA] Adverse Reaction (Severe, Verified 06/07/23 11:31) GI BLEEDING sertraline Adverse Reaction (Intermediate, Verified 06/07/23 11:31) Itch oxycodone Adverse Reaction (Verified 06/07/23 11:31) Nausea and Vomiting penicillin Allergy (Unknown, Uncoded 06/07/23 11:31) Hives Medication List - Last Reconciled 06/07/23 by Kirby Villalobos MD cholecalciferol (vitamin D3) 50 mcg PO DAILY 30 days citalopram (Celexa) 10 mg PO DAILY 30 days melatonin 20 mg PO DAILY PRN [id number]-Hm-dawg-minerals (Multiple Vitamin, Womens tablet) 1 tab PO DAILY omeprazole 20 mg PO DAILY oxcarbazepine 600 mg PO BID 90 days HPI HPI Comments History of Present Illness Details Patient presents with her significant other for elective excision of the left posterior neck sebaceous cyst. She has had this I&D in the past. Risks, benefits, alternatives excision of this cyst reviewed the patient included but not limited to bleeding, infection, recurrence, numbness, pain, scarring the patient wished to proceed. All questions were answered. [facility] Medical History Primary ovarian failure Disorder of bone density and structure, unspecified Amenorrhea Vitamin D deficiency Nausea Obesity Stroke Seizures Surgical History History of biopsy Hx of ingrown nail History of lumpectomy of left breast (02/02/22) History of wisdom tooth extraction History of cholecystectomy History of hysterectomy for indication other than malignancy History of tubal ligation H/O brain surgery Family History Mother Leukemia Skin cancer Father History of cancer of unknown primary site Paternal Uncle Bone cancer Paternal Grandfather Lung cancer Other Mental health disorder Substance use disorder Social History Household Members: Significant Other Housing: Apartment Alcohol intake: never Patient Tobacco Use Status: Current everyday Tobacco user Tobacco use type: Cigarette e-Cigarette/Vaping Use: Never Used Second Hand Smoke Exposure: Yes service: No Current occupational status: employed 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 Office Procedures Excision Details: After appropriate positioning, patient under 1% lidocaine and Betadine prep and uneventful transverse bi- elliptical incision of the sebaceous cyst of the left posterior neck. Specimen which measured approximately 3 x 2 cm was sent to pathology. Wound was irrigated, secured hemostasis, and closed using running subcuticular 3-0 Vicryl suture followed by Steri-Strips and sterile dressings. Patient tolerated procedure well. [address]-[place] scalp/neck/hands/feet/genitalia 2.1cm-3cm Procedure code (CPT) selection complete Office Meds lidocaine 1 %-epinephrine 1:100,000 injection solution Performing Provider: Kirby Villalobos MD Performing Location: [facility] Administered by: Kirby Villalobos MD on 06/07/23 11:51 Dose Route Admin Location Dispensed Lot Number Expiration Date 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 Orders: Orders AMB Excision Today L72.3 - Sebaceous cyst Medications: New hydrocodone-acetaminophen 5-325 mg Partial Fill upon patient request. 1 tab PO Q4-6H PRN 20 tabs 0RF pain Coding Level of Care Code Est Pt Level 4 (40391) Diagnoses Sebaceous cyst L72.3 CPT Codes Scalp/Neck/Hands/Feet/Genetalia - CPT: 43815-Vxtrtoih scalp/n edward/hands/feet/genitalia 2.1cm-3cm ([id number])
== END 2023-06-07 12:08 | disposition home or self-care (01) ==
PROVIDERS: PCP Physician Assistant; Visit Provider Surgery
DX: L72.0 Epidermal cyst (principal)
CPT/HCPCS: 11423; 99214

== ENCOUNTER 2023-06-07 11:24 | Outpatient (REF) | payer OTHER, SELFPAY | END 2023-06-07 11:25 | disposition home or self-care (01) | LOC: HO.LNP 11:24 | PROVIDERS: PCP Physician Assistant; Visit Provider Surgery | DX: L72.3 Sebaceous cyst (principal); Z79.899 Other long term (current) drug therapy | CPT/HCPCS: 11423; 88304; 99212 ==

== ENCOUNTER 2023-06-13 13:17 | Outpatient (AMB) | payer OTHER, SELFPAY ==
[2023-06-13 13:24] VITALS: BP 134/72; PULSE 78; BMI 26.9
--- NOTE | 2023-06-13 13:24 | MHC.OFFVIS ---
Intake Vital Signs 06/13/23 13:24 Height 5 ft 3 in Weight 152 lb BMI 26.9 BP 134/72 Blood Pressure Location Rt brachial Position Sitting Pulse 78 Intake Visit Reasons: S/p exc Lt post neck Intake Note: Patient here s/o exc lt post neck. Reports incision healing well. C/o pain. Would like to change rx pain med. Experienced itch all over after taking. Was only able to take 5 pills. 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 Colorer Required: No Accompanied by: Spouse Allergies aspirin [ASPIRIN] Adverse Reaction (Severe, Verified 06/13/23 13:26) GI BLEEDING hydromorphone [From DILAUDID] Adverse Reaction (Severe, Verified 06/13/23 13:26) VIOLENT NSAIDS (Non-Steroidal Anti-Inflamma [NSAIDS (NON-STEROIDAL ANTI-INFLAMMA] Adverse Reaction (Severe, Verified 06/13/23 13:26) GI BLEEDING sertraline Adverse Reaction (Intermediate, Verified 06/13/23 13:26) Itch oxycodone Adverse Reaction (Verified 06/13/23 13:26) Nausea and Vomiting penicillin Allergy (Unknown, Uncoded 06/13/23 13:26) Hives HPI HPI Comments History of Present Illness Details Patient was presents with her significant other follow-up. She has minimal incisional discomfort. Otherwise doing well. Pathology is benign. [facility] Medical History Primary ovarian failure Disorder of bone density and structure, unspecified Amenorrhea Vitamin D deficiency Nausea Obesity Stroke Seizures Surgical History History of biopsy Hx of ingrown nail History of lumpectomy of left breast (02/02/22) History of wisdom tooth extraction History of cholecystectomy History of hysterectomy for indication other than malignancy History of tubal ligation H/O brain surgery Family History Mother Leukemia Skin cancer Father History of cancer of unknown primary site Paternal Uncle Bone cancer Paternal Grandfather Lung cancer Other Mental health disorder Substance use disorder Social History Household Members: Significant Other Housing: Apartment Alcohol intake: never Patient Tobacco Use Status: Current everyday Tobacco user Tobacco use type: Cigarette e-Cigarette/Vaping Use: Never Used Second Hand Smoke Exposure: Yes service: No Current occupational status: employed 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 Assessment & Plan Assessment & Plan (1) Sebaceous cyst: Code(s): L72.3 - Sebaceous cyst Plan Patient's significant other have been given local instructions, and patient will follow-up p.r.n. Coding Level of Care Code Global (09960) Diagnoses Sebaceous cyst L72.3
== END 2023-06-13 13:29 | disposition home or self-care (01) ==
PROVIDERS: PCP Physician Assistant; Visit Provider Surgery
DX: L72.3 Sebaceous cyst (principal)
CPT/HCPCS: 99024

== ENCOUNTER → 2023-06-13 13:17 | Outpatient (BNVA) | payer OTHER, SELFPAY | PROVIDERS: PCP Physician Assistant; Visit Provider Surgery | DX: L72.3 Sebaceous cyst (principal) ==

== ENCOUNTER 2023-08-04 10:25 | Emergency (ER) | payer OTHER, SELFPAY ==
[2023-08-04] VITALS (7 sets, daily range): BP systolic 100–150; BP diastolic 63–90; PULSE 76–100; RESP 14–19; TEMP 36.6; O2SAT 95–100; BMI 24.9
--- NOTE | 2023-08-04 10:30 | ED_ITS ---
HPI - Seizure General Chief Complaint: Seizure Stated Complaint: SEIZURE Time Seen by Provider: 08/04/23 10:30 Source: patient, EMS, RN notes reviewed and old records reviewed Mode of arrival: EMS History of Present Illness HPI Narrative: 52-year-old female with a past medical history of MS, TBI, seizure disorder on Oxycarbazepine & Keppra, presenting to the ED today s/p witnessed seizure at home this morning while sitting in chair. Denies fall/head trauma. Per EMS/patient she had 12 seizures yesterday, was seen at [facility] and left AMA after they recommended transfer to another facility. Patient states she does not remember signing out AMA. Patient admits to forgetting to take her antiepileptics often, did not take them today. Reports nightly seizures x awhile , & Oxycarbazepine was increased about ?1 month ago by Neurologist, Dr. Sutherland. Reports headache. Denies recent illness, fever/chills, cough, CP/SOB, incontinence MD complaint: seizure Related Data Home Medications Medication Instructions Recorded Confirmed fwjiegkcotsy-Xo-xige-minerals 1 tab PO DAILY 03/17/21 06/05/23 (Multiple Vitamin, Womens tablet) melatonin 10 mg chewable tablet 20 mg PO DAILY PRN Sleep 06/05/23 06/05/23 Previous Rx's Medication Instructions Recorded citalopram 10 mg tablet (Celexa) 10 mg PO DAILY 30 days #30 tabs 12/13/22 omeprazole 20 mg capsule,delayed 20 mg PO DAILY #90 caps 12/13/22 release oxcarbazepine 600 mg tablet 600 mg PO BID 90 days #180 tabs 12/13/22 cholecalciferol (vitamin D3) 50 50 mcg PO DAILY 30 days #30 caps 04/18/23 mcg (2,000 unit) capsule Allergies Allergy/AdvReac Type Severity Reaction Status Date / Time aspirin [ASPIRIN] AdvReac Severe GI BLEEDING Verified 06/13/23 13:26 hydromorphone [From DILAUDID] AdvReac Severe VIOLENT Verified 06/13/23 13:26 NSAIDS (Non-Steroidal AdvReac Severe GI BLEEDING Verified 06/13/23 13:26 Anti-Inflamma [NSAIDS (NON-STEROIDAL ANTI-INFLAMMA] sertraline AdvReac Intermediate Itch Verified 06/13/23 13:26 oxycodone AdvReac Nausea and Verified 06/13/23 13:26 Vomiting penicillin Allergy Unknown Hives Uncoded 06/13/23 13:26 Review of Systems 2 Review of Systems: Constitutional: No Fever, No Chills, No Fatigue, No Malaise ENT/Mouth: No Ear Pain, No Nasal Congestion, No sore throat, No Rhinorrhea, No Swallowing Difficulty Eyes: No Eye Pain, No Swelling, No Redness, No Vision Changes Cardiovascular: No Chest Pain, No SOB, No Edema, No Palpitations Respiratory: No Cough, No Sputum, No Dyspnea Gastrointestinal: No Nausea, No Vomiting, No Diarrhea, No Constipation, No Abdominal pain Genitourinary: No Dysuria, No Hematuria, No Urinary Incontinence/retention, No Flank Pain Musculoskeletal: No joint pain, No Myalgias, No Joint Swelling Skin: No Skin Lesions, No rash Neuro: +seizure, No Weakness, No Numbness, No Paresthesias, No Loss of Consciousness, No Dizziness, + Headache Yes all other systems are reviewed and are negative Constitutional: Constitutional: Reports as per HPI Neurologic: Denies Abnormal speech present [facility] Past Medical History Attestation statement: The following information was validated with the patient. Source: old records reviewed Medical History Primary ovarian failure Disorder of bone density and structure, unspecified Amenorrhea Vitamin D deficiency Nausea Obesity Stroke Seizures Surgical History History of biopsy Hx of ingrown nail History of lumpectomy of left breast (02/02/22) History of wisdom tooth extraction History of cholecystectomy History of hysterectomy for indication other than malignancy History of tubal ligation H/O brain surgery Family History Family History Mother Leukemia Skin cancer Father History of cancer of unknown primary site Paternal Uncle Bone cancer Paternal Grandfather Lung cancer Other Mental health disorder Substance use disorder Social History Household Members: Significant Other Housing: Apartment Alcohol intake: never Patient Tobacco Use Status: Current everyday Tobacco user Tobacco use type: Cigarette Smoked in Last 30 Days: No e-Cigarette/Vaping Use: Never Used Second Hand Smoke Exposure: Yes Use of substances other than those prescribed or required for medical reasons: No Advance Directives: No Patient : No service: No Current occupational status: employed 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 Cognitive needs: Yes Hearing needs: No Vision needs: Yes (glasses) Physical Exam 2 Vital Signs: Vital Signs: Last Vital Signs Temp 97.8 F 08/04/23 10:39 Pulse 76 08/04/23 14:41 Resp 18 08/04/23 14:41 BP 101/64 08/04/23 14:41 Pulse Ox 97 08/04/23 14:41 O2 Del Method Room Air 08/04/23 14:41 BMI result Body Mass Index 24.9 Const: General: cooperative, healthy appearing and no acute distress O rientation/consciousness: patient oriented x3 Limitations: no limitations HEENT: Head: Yes normal to inspection and Yes atraumatic Ears: hearing grossly normal bilaterally General nose exam: Normal external nose present Face and sinus: Yes normal facial exam Eyes: General: appearance normal, both eyes and all related structures EOM: EOMs intact bilaterally Neck: Neck: Yes normal visual inspection and Yes no meningeal signs Resp: Effort & Inspection: normal respiratory effort and no respiratory distress Auscultation: clear to auscultation bilaterally Cardio: Rate: regular rate Heart sounds: S1 normal heart sound present and S2 normal heart sound present GI: Inspection: Yes normal to inspection Palpation (GI): Soft to palpation, nontender, no guarding and not rigid : General: Yes no CVA tenderness Back/Spine/Pelvis: Other: No midline cervical/thoracic/lumbar spinous tenderness/step-off or deformity Back: no CVA tenderness Skin: Rashes: no rashes Wounds: no wounds Neuro: General: patient oriented x3, tone normal, moves all extremities, no meningeal signs, no focal motor deficits and CN's II-XI intact bilaterally C ranial nerves: Yes CN's II-XII intact bilaterally Cognition (Neuro): normal cognition Speech: No Abnormal speech present Motor exam (neuro): 5/5 motor strength present throughout Extrem: General: Yes normal to inspection Course Course Course Narrative: -1209--obtained records from [facility], patient presented after witnessed seizure at home, then had 2-3 additional seizures witnessed in the emergency department. Labs were reassuring. Tox screen negative. CT head unremarkable. They tried to transfer to our facility however transfer was declined, also try to transfer to [facility] however they were close to transfer. They consulted their telemetry neurologist who recommended starting patient on 100 mg of Keppra b.i.d. and transferring either to [facility] or [facility] for 24 hour EEG as well as an MRI > transfer was accepted to [facility] however no bed available until the morning patient remained in the ED, states patient sign out AMA at about 01:00AM, and had [address] -lactic acid WNL -UA contaminated however infected > will give IV Rocephin > will consult patient's neurologist, Dr. Sutherland >> case discussed with hospitalist who states we do not have 24hr EEG available at our facility, pending neurology recommendations -Dr. Sutherland evaluated patient in the ED. Concern for non epileptic versus epileptic spells, probably nonepileptic. Recommended continuing baseline medications and behavioral therapy consult to manage stress. Patient prescribed Trileptal 600 mg twice a day and Keppra 500 mg once daily today > recommended increasing Keppra to BID. Does not think patient needs inpatient/acute hospitalization for seizures, however does recommend Psych consult -psych consult placed. Physician observation initiated at 15:48 Medications Administered Discontinued Medications Generic Name Dose Route Start Last Admin Trade Name Freq PRN Reason Stop Dose Admin Ceftriaxone Sodium 1 gm/ 50 mls @ 100 mls/hr 08/04/23 12:24 08/04/23 13:07 Sodium Chloride IV 08/04/23 12:53 Infused ONCE ONE Infusion Lorazepam 2 mg 08/04/23 12:11 08/04/23 12:24 Lorazepam 1 Mg Tablet PO 08/04/23 12:12 2 mg ONCE ONE Administration Oxcarbazepine 600 mg 08/04/23 11:43 08/04/23 11:59 Oxcarbazepine 300 Mg Tablet PO 08/04/23 11:44 600 mg ONCE ONE Administration Medical Decision Making Medical Decision Making [facility] Narrative: 52-year-old female with a past medical history of MS, seizure disorder on Oxycarbazepine & Keppra, presenting to the ED today s/p witnessed seizure at home this morning while sitting in chair. Denies fall/head trauma. Per EMS/patient she had 12 seizures yesterday, was seen at [facility] and left AMA after they recommended transfer to another facility. On exam vital signs stable, postictal per EMS, awake and alert, acting appropriate, mildly lethargic on our evaluation. No evidence of trauma. No focal deficits. Concern for seizure with medication noncompliance vs non epileptic seizures. Rule out metabolic/infectious etiologies. Lower suspicion for ICH or fractures Plan: EKG, labs, UA, CXR Will request records from [facility] Please refer to course for remaining clinical decision making, interpretation of labs/imaging results, and discussions with consultants and/or family members. Differential Diagnosis Differential Diagnoses: The differential diagnosis associated with the presentation includes As above Admission/Observation Consideration of admission/observation: Escalation of care including admission/observation considered Lab Data MDM Lab Attestation statement: I reviewed the patient's lab results. 08/04/23 11:53 08/04/23 11:53 Labs: Lab Results 08/04/23 08/04/23 Range/Units 11:52 11:53 WBC 6.9 (4.8-10.8) X10*3/uL RBC 4.05 L (4.20-5.50) X10*6/uL Hgb 13.5 (12.0-16.0) g/dl Hct 39.9 (37.0-47.0) % MCV 98.5 H (80.0-98.0) fL MCH 33.3 H (27.0-33.0) pg MCHC 33.8 (31.0-35.0) g/dl RDW 11.6 (11.0-16.0) % Plt Count 249 (160-400) X10*3/uL MPV 9.9 (9.4-12.3) fL Immature Gran % (Auto) 0.3 (0.0-0.4) % Neut % (Auto) 60.1 (45-73) % Lymph % (Auto) 31.3 (20-40) % [place] % (Auto) 6.1 (2-11) % Eos % (Auto) 1.5 (0-4) % Baso % (Auto) 0.7 (0-2) % Lymph # (Auto) 2.2 (1.2-4.9) X10*3/uL [place] # (Auto) 0.4 (0.1-1.2) X10*3/uL Eos # (Auto) 0.1 (0.0-0.4) X10*3/uL Baso # (Auto) 0.1 (0.0-0.2) X10*3/uL Abs Immat Gran (auto) 0.02 (0.00-0.03) X10*3/uL Absolute Neuts (auto) 4.1 (2.0-8.3) x10*3/uL Absolute Nucleated RBC 0.000 (0.0-0.012) X10*3/uL Nucleated RBC % (auto) 0.0 (0.0-0.2) /100WBC PT 11.7 (11.1-13.3) SEC INR 1.0 (0.9-1.1) Sodium 142 (135-145) mmol/L Potassium 4.1 (3.3-5.1) mmol/L Chloride 108 (96-108) mmol/L Carbon Dioxide 29 (22-29) mmol/L Anion Gap 9 L (12-20) BUN 11 (9-16) mg/dL Creatinine 0.87 (0.5-1.4) mg/dL Estim Creat Clear Calc 71.4 Estimated GFR > 60 Random Glucose 84 (60-115) mg/dL Lactic Acid 0.8 (0.5-2.0) mmol/L Calcium 10.2 (8.4-10.2) mg/dL Magnesium 2.1 (1.6-2.6) mg/dL Total Bilirubin 0.4 (0.0-1.0) mg/dL Direct Bilirubin 0.1 (0.0-0.5) mg/dL AST 19 (5-31) U/L ALT 17 (0-31) U/L Alkaline Phosphatase 68 (39-117) U/L Total Protein 6.7 (6.5-8.0) g/dL Albumin 3.9 (3.5-5.0) g/dL Beta HCG, Quant < 2 mIU/mL Urine Color Yellow Urine Appearance Cloudy Urine pH 8.0 (5.0-9.0) Ur Specific [place] 1.010 (1.005-1.025) Urine Protein Negative (Neg-Trace) mg/dL Urine Glucose (UA) Negative (Negative) mg/dL Urine Ketones Negative (Negative) mg/dL Urine Blood Moderate (2+) H (Negative) Urine Nitrite Positive H (Negative) Ur Leukocyte Esterase Moderate (2+) H (Negative) Urine RBC 0-2 (0-2) /HPF Urine WBC 21-50 H (0-5) /HPF Ur Squamous Epith Cells >20 (0-2) /HPF Urine Bacteria 4+ (None Seen) Hyaline Casts 0-2 (0-2) /LPF Urine Opiates Screen Not Detected (Not Detect) Urine Fentanyl Screen Not Detected (Not Detect) Ur Barbiturates Screen Not Detected (Not Detect) Ur Phencyclidine Scrn Not Detected (Not Detect) Ur Amphetamines Screen Not Detected (Not Detect) U Benzodiazepines Scrn Not Detected (Not Detect) Urine Cocaine Screen Not Detected (Not Detect) U Marijuana (THC) Screen Not Detected (Not Detect) Ethyl Alcohol < 10 mg/dL COVID-19 (BRITTANY) Negative (Negative) COVID-19 Clin Com See Note Independent Interpretation I performed an independent interpretation of an: EKG (My interpretation EKG normal sinus rhythm rate of 77. NM interval 146. QTC 439. No STEMI) Radiology Impression Discussion of test interpretation with radiology: I have reviewed the radiologist's reading. Independent Historian Clinical information obtained from an independent historian. History obtained from or confirmed by: Spouse and EMS External Record Review External record reviewed: Inpatient record, Office record, Outpatient record, Prior outpatient labs, Prior outpatient radiology, Primary care record and Outside ED record Tests considered The following testing was considered but not selected: As above Prescription Management I considered prescription management with: Pain Medication Chronic Conditions Patient?s care impacted by: Other (Seizures, MS) Discharge Plan Discharge Clinical Impression: Seizures Prescriptions: No Action melatonin 10 mg Tablet,Chewable 20 mg PO DAILY PRN (Reason: Sleep) Multiple Vitamin, Womens Tablet 1 tab PO DAILY oxcarbazepine 600 mg tablet 600 mg PO BID 90 Days Qty: 180 1RF citalopram [Celexa] 10 mg tablet 10 mg PO DAILY 30 Days Qty: 30 2RF omeprazole 20 mg capsule,delayed release(DR/EC) 20 mg PO DAILY Qty: 90 1RF cholecalciferol (vitamin D3) 50 mcg (2,000 unit) capsule 50 mcg PO DAILY 30 Days Qty: 30 11RF
--- NOTE | 2023-08-04 10:50 | ECG_ITS ---
Test Reason : SEIZURE Blood Pressure : / mmHG Vent. Rate : 077 BPM Atrial Rate : 077 BPM P-R Int : 146 ms QRS Dur : 080 ms QT Int : 388 ms P-R-T Axes : 012 051 053 degrees QTc Int : 439 ms Normal sinus rhythm Normal ECG No previous ECGs available Referred By: Aleta Wade Electronically Signed By:TATI CORONA MD
--- OUTSIDE RECORDS SUMMARY | 2023-08-04 10:51 | XMS_ITS | Continuity of Care Document ---
Author Name Unknown Organization [facility] Address [address] [facility], [address], [address] [place] [id number] Care Team Providers Care Political Analyst Name Role Phone Ayush Monreal Primary Care Physician [place] [facility] [place] 05/22/23 - 06/21/23 [facility] [address] [place], [place] [address] Allergies, Adverse Reactions, Alerts Substance Reaction Severity Status ibuprofen 1 Active penicillin rash Active Percocet 7.5/325 Active traMADOL itching Active aspirin Active Dilaudid Active 1gastric ulcer Immunizations Given and Recorded Vaccine Date Status Refusal Reason influenza virus vaccine, inactivated 1 07/06[address] influenza virus vaccine, inactivated 08/28/15 Give n influenza virus vaccine, inactivated 08/01/14 Give n influenza virus vaccine, inactivated 2 06/19/[address] tetanus/diphtheria/pertussis, acel(Tdap) 08/28/15 Given pneumococcal 23-valent vaccine 05/18/13 Given 1Result Comment: [07/06/2017] [facility]:[id number] 2Result Comment: [06/19/2013] [facility] Medications aspirin [...] Replace Required Details, Route to Pharmacy Electronically, [id number], [facility]/pharmacy #[id number] Start Date: 09/25/18 Status: [...] Refills, Maintenance, 10/18/19 11:02:00 EST, DIS Tablet, [facility]/pharmacy #[id number], 163.4, cm, 10/18/19 10:44:00 EST, Height Start Date: 10/18/19 Stop Date: 10/21/19 Status: Ordered Problem List Condition Confirmation Course Effective Dates Status Health St atus Informant Anxiety Confirmed Active Cigarette smoker Confirmed Active Depression Confirmed Active Generalized seizure disorder Confirmed Active Cognitive deficit S/P CVA (cerebrovascular accident) Confirmed Active Migraine Confirmed Active Social History Social History Type Response Smoking Status Never smoker; Tobacc o user in household: Yes; Other: smokes; entered on: 03/28/14 Sex Patient Care team information Care Team Personnel Name: Ayush Monreal Position: Reference Physician Member Role: PCP Address: Address: [address] [place] [address] [address] [place] [address]- Care Team Related Persons Name: SOMMER TIM Address: home [address] [place] [address] Name: JAQUELINE JETER Address: home [address] [place] [address]
[2023-08-04 11:58] LABS: MANUAL DIFF FLAG NO
[2023-08-04] MEDS: OXcarbazepine 300 MG TABLET 600 MG PO ×2 (11:59→21:01)
[2023-08-04 12:01] LABS: Basophils Absolute Auto 0.1 X10*3/uL (0.0-0.2); Basophils Percent Auto 0.7 % (0-2); Eosinophils Absolute Auto 0.1 X10*3/uL (0.0-0.4); Eosinophils Percent Auto 1.5 % (0-4); Hematocrit 39.9 % (37.0-47.0); Hemoglobin 13.5 g/dl (12.0-16.0); Imm Gran Abs Auto 0.02 X10*3/uL (0.00-0.03); Imm Gran Pct Auto 0.3 % (0.0-0.4); Lymphocytes Absolute Auto 2.2 X10*3/uL (1.2-4.9); Lymphocytes Percent Auto 31.3 % (20-40); Mean Corpuscular HGB Conc 33.8 g/dl (31.0-35.0); Mean Corpuscular Hemoglobin 33.3 pg (27.0-33.0); Mean Corpuscular Volume 98.5 fL (80.0-98.0); Mean Platelet Volume 9.9 fL (9.4-12.3); Monocytes Absolute Auto 0.4 X10*3/uL (0.1-1.2); Monocytes Percent Auto 6.1 % (2-11); Neutrophils Absolute Auto 4.1 x10*3/uL (2.0-8.3); Neutrophils Percent Auto 60.1 % (45-73); Platelet Count 249 X10*3/uL (160-400); Red Blood Count 4.05 X10*6/uL (4.20-5.50); Red Cell Distribution Width 11.6 % (11.0-16.0); White Blood Count 6.9 X10*3/uL (4.8-10.8)
[2023-08-04 12:01] LABS: Appearance Urine Cloudy; Color Urine Yellow; Glucose Urine UA Negative (Negative); Leukocyte Esterase Urine Moderate (2+) (Negative); Nitrite Urine Positive (Negative); UMIC TRIGGER UACC YES; Urine Blood Moderate (2+) (Negative); Urine Ketones Negative (Negative); Urine Protein Negative (Neg-Trace)
[2023-08-04 12:09] LABS: Bacteria Urine 4+ (None Seen); Hyaline Casts Urine 0-2 /LPF (0-2); RBC Urine 0-2 /HPF (0-2); Squamous Epithelial Cell Urine >20 /HPF (0-2); UACC Culture Trigger YES; WBC Urine 21-50 /HPF (0-5)
[2023-08-04 12:09] LABS: Amphetamine Screen Urine Not Detected (Not Detect); Barbiturates, Urine Not Detected (Not Detect); Benzodiazepines Screen Urine Not Detected (Not Detect); Cannabinoid Screen Urine Not Detected (Not Detect); Cocaine Screen Urine Not Detected (Not Detect); Fentanyl, urine Not Detected (Not Detect); Opiate Screen Urine Not Detected (Not Detect); Phencyclidine Screen Urine Not Detected (Not Detect)
[2023-08-04 12:12] LABS: Lactic Acid 0.8 mmol/L (0.5-2.0)
[2023-08-04 12:13] LABS: COVID-19 Test Negative (Negative); IDNOW Serial# BCCEAD1C
[2023-08-04 12:18] LABS: Prothrombin Time 11.7 SEC (11.1-13.3)
[2023-08-04] MEDS: LORazepam 1 MG TABLET 2 MG PO (12:24)
[2023-08-04] MEDS: cefTRIAXone sodium 1 GM in 0.9 % Sodium Chloride 50 ML IV (12:34)
[2023-08-04 12:35] LABS: Alanine Aminotransferase 17 U/L (0-31); Albumin Level 3.9 g/dL (3.5-5.0); Alkaline Phosphatase 68 U/L (39-117); Anion Gap 9 (12-20); Aspartate Amino Transferase 19 U/L (5-31); Bilirubin Direct 0.1 mg/dL (0.0-0.5); Bilirubin Total 0.4 mg/dL (0.0-1.0); Blood Urea Nitrogen 11 mg/dL (9-16); Calcium 10.2 mg/dL (8.4-10.2); Carbon Dioxide 29 mmol/L (22-29); Chloride 108 mmol/L (96-108); Creatinine Clr Calc Pharmacy 71.4; Estimated Glomerular Filt Rate > 60; Ethanol < 10 mg/dL; Glucose Random 84 mg/dL (60-115); HCG Quantitative < 2 mIU/mL; Magnesium 2.1 mg/dL (1.6-2.6); Potassium 4.1 mmol/L (3.3-5.1); Sodium 142 mmol/L (135-145); Total Protein 6.7 g/dL (6.5-8.0)
--- NOTE | 2023-08-04 13:08 | PC.NURSE ---
patient resting in bed, respirations equal and unlabored. patient medicated per MAR, has IV in the left AC #20. patient at bedside visiting. patient in front of nurses tation, being monitored on tele
--- NOTE | 2023-08-04 15:04 | P.CNNE_ITS ---
History of Present Illness Data of Consult Service Date: 08/04/23 Primary Care Provider: Ayush Cope PA-C HPI Reason for consult: Seizure disorder 52 yo woman with h/o TBI causing left occipital encehalomalacia, epilepsy with complex partial seizures, and PTSD relted to multiple stresses. She used to be relatively stable with seizures but recently have been c/o more and more seizures. I have suspected non-epileptic spells in addition to epileptic ones. She was in hospital yesterday with c/o multiple seizures but also stated that she was under severe stress. She signed out AMA yesterday and then came back today in this hospital. Boy friend reporeted that she was having seizures making her unresponsive for many minutes. Review of Systems 2 Review of Systems: Under severe stress [facility] Past Medical History Medical History Primary ovarian failure Disorder of bone density and structure, unspecified Amenorrhea Vitamin D deficiency Nausea Obesity Stroke Seizures Family History Family History Mother Leukemia Skin cancer Father History of cancer of unknown primary site Paternal Uncle Bone cancer Paternal Grandfather Lung cancer Other Mental health disorder Substance use disorder Surgical History Surgical History History of biopsy Hx of ingrown nail History of lumpectomy of left breast (02/02/22) History of wisdom tooth extraction History of cholecystectomy History of hysterectomy for indication other than malignancy History of tubal ligation H/O brain surgery Social History Household Members: Significant Other Housing: Apartment Alcohol intake: never Patient Tobacco Use Status: Current everyday Tobacco user Tobacco use type: Cigarette Smoked in Last 30 Days: No e-Cigarette/Vaping Use: Never Used Second Hand Smoke Exposure: Yes Use of substances other than those prescribed or required for medical reasons: No Advance Directives: No Patient : No service: No Current occupational status: employed Current occupation: [employer] Cognitive needs: Yes Hearing needs: No Vision needs: Yes (glasses) Meds Allergies Allergy/AdvReac Type Severity Reaction Status Date / Time aspirin [ASPIRIN] AdvReac Severe GI BLEEDING Verified 06/13/23 13:26 hydromorphone [From DILAUDID] AdvReac Severe VIOLENT Verified 06/13/23 13:26 NSAIDS (Non-Steroidal AdvReac Severe GI BLEEDING Verified 06/13/23 13:26 Anti-Inflamma [NSAIDS (NON-STEROIDAL ANTI-INFLAMMA] sertraline AdvReac Intermediate Itch Verified 06/13/23 13:26 oxycodone AdvReac Nausea and Verified 06/13/23 13:26 Vomiting penicillin Allergy Unknown Hives Uncoded 06/13/23 13:26 Home Medications Medication Instructions Recorded Confirmed Last Taken Type ypmslptsosjy-Sm-cebe-minerals 1 tab PO DAILY 03/17/21 06/05/23 Unknown History (Multiple Vitamin, Womens tablet) melatonin 10 mg chewable tablet 20 mg PO DAILY PRN Sleep 06/05/23 06/05/23 Unknown History Physical Exam 2 Vital Signs: Vital Signs: Last Vital Signs Temp 97.8 F 08/04/23 10:39 Pulse 76 08/04/23 14:41 Resp 18 08/04/23 14:41 BP 101/64 08/04/23 14:41 Pulse Ox 97 08/04/23 14:41 O2 Del Method Room Air 08/04/23 14:41 BMI result Body Mass Index 24.9 Neuro: Other: Alert and awake with normal sp speech, fluency, affect. No No focla weakness. NO new findings. Results Labs 08/04/23 11:53 08/04/23 11:53 Labs: Short CBC 08/04/23 Range/Units 11:53 WBC 6.9 (4.8-10.8) X10*3/uL Hgb 13.5 (12.0-16.0) g/dl Hct 39.9 (37.0-47.0) % Plt Count 249 (160-400) X10*3/uL BMP 08/04/23 11:53 Sodium 142 Potassium 4.1 Chloride 108 Carbon Dioxide 29 BUN 11 Creatinine 0.87 Calcium 10.2 Liver Function 08/04/23 Range/Units 11:53 Total Bilirubin 0.4 (0.0-1.0) mg/dL Direct Bilirubin 0.1 (0.0-0.5) mg/dL AST 19 (5-31) U/L ALT 17 (0-31) U/L Alkaline Phosphatase 68 (39-117) U/L Albumin 3.9 (3.5-5.0) g/dL Urine 08/04/23 Range/Units 11:52 Urine Color Yellow Urine Appearance Cloudy Urine pH 8.0 (5.0-9.0) Ur Specific [place] 1.010 (1.005-1.025) Urine Protein Negative (Neg-Trace) mg/dL Urine Glucose (UA) Negative (Negative) mg/dL Assessment and Plan (1) Seizures: Status: Acute Non-epileptic vs epileptic spells, probably non epileptic types.I recommend continuing baseline meds and behavioral therapy consult to manage stress. She was prescribed oxcarbazepine 600mg twice a day and keppra 500mg once a day. Keppra can be increaseed to twice a day. Procedures Date of Service Date of Service: 08/04/23
--- NOTE | 2023-08-04 15:27 | PC.NURSE ---
pt walked to the bathroom with spouse, ambulated well with some support. pt back in bed at this time, no reports of pain or discomfort
[2023-08-04] MEDS: levETIRAcetam 500 MG TABLET PO ×2 (16:12→21:01)
[2023-08-04] MEDS: Acetaminophen 325 MG TABLET 650 MG PO (16:52)
--- NOTE | 2023-08-04 17:18 | PC.NURSE ---
pt c/o chronic back and head pain, requesting tylenol, pt medicated per NOV. pt now resting with eyes closed, breathing even and unlabored. spouse at bedside
--- NOTE | 2023-08-04 18:27 | PC.NURSE ---
pt pressed call turner, spouse at bedside reported she was having a seizure. multiple staff responded. no signs of a seizure were seen. VSS, pt not responsive to verbal stim. PA made aware, came to bedside. no concerns at this time. pt awoke a few minutes later. states she feels okay just spacey . alert and able to answer questions. PA back in room to ask questions, pt states she felt weird so pressed the call turner than doesn't remember. pt now resting comfortably
--- NOTE | 2023-08-04 19:08 | PC.NURSE ---
pt now in a hospital bed
--- NOTE | 2023-08-04 19:11 | MHC.EDTECH ---
Patient put in inpatient bed
--- NOTE | 2023-08-04 22:31 | PC.NURSE ---
pt frequently getting up to use the bathroom with assist of spouse
[2023-08-05 00:52] VITALS: BP 109/63; PULSE 91; RESP 22; O2SAT 97
[2023-08-05] MEDS: Melatonin 3 MG TABLET 6 MG PO (00:52)
[2023-08-05] MEDS: Acetaminophen 325 MG TABLET 975 MG PO (00:52)
--- NOTE | 2023-08-05 00:59 | PC.NURSE ---
pt requested melatonin and tylenol for back pain. provider made aware. pt medicated per NOV
[2023-08-05 03:08] VITALS: BP 93/53; PULSE 77; RESP 16; O2SAT 96
[2023-08-05 05:14] VITALS: BP 91/56; PULSE 67; O2SAT 96
--- NOTE | 2023-08-05 05:58 | PC.NURSE ---
pt continues to rest comfortably with eyes closed, breathing even and unlabored, no apparent distress noted at this time. spouse asleep at bedside.
--- NOTE | 2023-08-05 07:30 | PC.NURSE ---
Pt states she began to experience N/V/D sx s/p medications prescribed to her earlier in ED. She is now reporting to be incontinent of stool and urine. Pt medicated for vomiting sx with no improvement. Stool ample obtained and pending. Concern for C-diff secondary to completion of amoxicillin course for tx of recent sinus infection. Pt informed she will be admitted for further evaluation and management of sx. Care ongoing.
--- NOTE | 2023-08-05 07:55 | PC.NURSE ---
patient awake, questioning when she will be speaking to the psychiatric provider this morning, aware that this is what she is waiting on. expresses desires to be discharged upon this consult. visitor at bedside, call turner within reach
--- NOTE | 2023-08-05 08:22 | PC.NURSE ---
gisel sent out for psych consult who state that they will see her this afternoon
[2023-08-05 08:40] VITALS: BP 113/61; PULSE 64; RESP 16; TEMP 36.7; O2SAT 98
[2023-08-05] MEDS: OXcarbazepine 300 MG TABLET 600 MG PO (08:49)
[2023-08-05] MEDS: levETIRAcetam 500 MG TABLET PO (08:49)
[2023-08-05] MEDS: cefuroxime axetiL 250 MG TABLET PO (08:49)
--- NOTE | 2023-08-05 09:04 | PC.NURSE ---
patient requesting to be discharged as she cannot stay until the afternoon for the psych consult. no si/hi.
--- NOTE | 2023-08-05 13:33 | P.CNPS_ITS ---
History of Present Illness Date of Service: 08/05/2023 Chief Complaint: SEIZURE Reason for Consult: stress and seizures Sources of Information: patient interviewed and chart reviewed HPI Narrative: As per neurology consult 08/04/25 52 yo woman with h/o TBI causing left occipital encehalomalacia, epilepsy with complex partial seizures, and PTSD relted to multiple stresses. She used to be relatively stable with seizures but recently have been c/o more and more seizures. I have suspected non-epileptic spells in addition to epileptic ones. She was in hospital yesterday with c/o multiple seizures but also stated that she was under severe stress. She signed out AMA yesterday and then came back today in this hospital. Boy friend reporeted that she was having seizures making her unresponsive for many minutes. Non-epileptic vs epileptic spells, probably non epileptic types.I recommend continuing baseline meds and behavioral therapy consult to manage stress. She was prescribed oxcarbazepine 600mg twice a day and keppra 500mg once a day. Keppra can be increaseed to twice a day Today: [facility] Medical History Primary ovarian failure Disorder of bone density and structure, unspecified Amenorrhea Vitamin D deficiency Nausea Obesity Stroke Seizures Surgical History History of biopsy Hx of ingrown nail History of lumpectomy of left breast (02/02/22) History of wisdom tooth extraction History of cholecystectomy History of hysterectomy for indication other than malignancy History of tubal ligation H/O brain surgery Diagnostics Vital Signs (24Hr): Vital Signs - 24 hr 08/04/23 14:41 08/04/23 16:13 08/04/23 18:18 Temperature Pulse Rate 76 85 85 Respiratory Rate 18 19 14 Blood Pressure 101/64 100/63 105/70 Pulse Oximetry 97 96 97 Oxygen Delivery Method Room Air Room Air Room Air 08/04/23 21:04 08/05/23 00:52 08/05/23 03:08 Temperature Pulse Rate 83 91 77 Respiratory Rate 19 22 H 16 Blood Pressure 111/68 109/63 93/53 L Pulse Oximetry 97 97 96 Oxygen Delivery Method Room Air Room Air Room Air 08/05/23 05:14 08/05/23 08:40 Temperature 98.0 F Pulse Rate 67 64 Respiratory Rate 16 Blood Pressure 91/56 L 113/61 Pulse Oximetry 96 98 Oxygen Delivery Method Room Air Room Air BMI result Body Mass Index 24.9 Labs 08/04/23 11:53 08/04/23 11:53 Labs: Laboratory Results - last 48 hr 08/04/23 08/04/23 11:52 11:53 WBC 6.9 RBC 4.05 L Hgb 13.5 Hct 39.9 MCV 98.5 H MCH 33.3 H MCHC 33.8 RDW 11.6 Plt Count 249 MPV 9.9 Immature Gran % (Auto) 0.3 Neut % (Auto) 60.1 Lymph % (Auto) 31.3 Gillespie % (Auto) 6.1 Eos % (Auto) 1.5 Baso % (Auto) 0.7 Lymph # (Auto) 2.2 [place]illespie # (Auto) 0.4 Eos # (Auto) 0.1 Baso # (Auto) 0.1 Abs Immat Gran (auto) 0.02 Absolute Neuts (auto) 4.1 Absolute Nucleated RBC 0.000 Nucleated RBC % (auto) 0.0 PT 11.7 INR 1.0 Sodium 142 Potassium 4.1 Chloride 108 Carbon Dioxide 29 Anion Gap 9 L BUN 11 Creatinine 0.87 Estim Creat Clear Calc 71.4 Estimated GFR > 60 Random Glucose 84 Lactic Acid 0.8 Calcium 10.2 Magnesium 2.1 Total Bilirubin 0.4 Direct Bilirubin 0.1 AST 19 ALT 17 Alkaline Phosphatase 68 Total Protein 6.7 Albumin 3.9 Beta HCG, Quant < 2 Urine Color Yellow Urine Appearance Cloudy Urine pH 8.0 Ur Specific [place] 1.010 Urine Protein Negative Urine Glucose (UA) Negative Urine Ketones Negative Urine Blood Moderate (2+) H Urine Nitrite Positive H Ur Leukocyte Esterase Moderate (2+) H Urine RBC 0-2 Urine WBC 21-50 H Ur Squamous Epith Cells >20 Urine Bacteria 4+ Hyaline Casts 0-2 Urine Opiates Screen Not Detected Urine Fentanyl Screen Not Detected Ur Barbiturates Screen Not Detected Ur Phencyclidine Scrn Not Detected Ur Amphetamines Screen Not Detected U Benzodiazepines Scrn Not Detected Urine Cocaine Screen Not Detected U Marijuana (THC) Screen Not Detected Ethyl Alcohol < 10 COVID-19 (BRITTANY) Negative COVID-19 Clin Com See Note Medications Allergies Allergies Allergy/AdvReac Type Severity Reaction Status Date / Time aspirin [ASPIRIN] AdvReac Severe GI BLEEDING Verified 06/13/23 13:26 hydromorphone [From DILAUDID] AdvReac Severe VIOLENT Verified 06/13/23 13:26 NSAIDS (Non-Steroidal AdvReac Severe GI BLEEDING Verified 06/13/23 13:26 Anti-Inflamma [NSAIDS (NON-STEROIDAL ANTI-INFLAMMA] sertraline AdvReac Intermediate Itch Verified 06/13/23 13:26 oxycodone AdvReac Nausea and Verified 06/13/23 13:26 Vomiting penicillin Allergy Unknown Hives Uncoded 06/13/23 13:26 Assessment & Plan Total time managing care of this patient today ____ minutes.
[2023-08-07 23:48] LABS: Oxcarbazepine <1.0 mcg/mL (8.0-35.0)
== END 2023-08-05 09:18 | disposition home or self-care (01) ==
PROVIDERS: Physician Assistant; Emergency Provider Emergency Medicine; PCP Physician Assistant
DX: R56.9 Unspecified convulsions (principal); Z11.52 Encounter for screening for COVID-19; Z20.822 Contact with and (suspected) exposure to COVID-19; Z79.899 Other long term (current) drug therapy
CPT/HCPCS: 36415; 80048; 80076; 80307; 80339; 81001; 81003; 83605; 83735; 84702; 85025; 85610; 87086; 87088; 87186; 87635; 93005; 96365; 99285; J0696

== ENCOUNTER 2023-10-24 09:48 | Outpatient (AMB) | payer MEDICARE, MEDICAID, SELFPAY ==
--- NOTE | 2023-10-24 09:41 | A.OFFPC_ITS ---
Intake Visit Reasons: f/u MDD/ Smoking Medical Unit Secretary Required: No Accompanied by: Self / Same As Patient Allergies aspirin [ASPIRIN] Adverse Reaction (Severe, Verified 10/24/23 09:58) GI BLEEDING hydromorphone [From DILAUDID] Adverse Reaction (Severe, Verified 10/24/23 09:58) VIOLENT NSAIDS (Non-Steroidal Anti-Inflamma [NSAIDS (NON-STEROIDAL ANTI-INFLAMMA] Adverse Reaction (Severe, Verified 10/24/23 09:58) GI BLEEDING sertraline Adverse Reaction (Intermediate, Verified 10/24/23 09:58) Itch oxycodone Adverse Reaction (Verified 10/24/23 09:58) Nausea and Vomiting penicillin Allergy (Unknown, Uncoded 06/13/23 13:26) Hives Medication List - Last Reconciled 10/24/23 by Ayush Cope PA-C cefuroxime axetil 250 mg PO BID 7 days chlorhexidine gluconate 0.12% PO cholecalciferol (vitamin D3) 50 mcg PO DAILY citalopram (Celexa) 10 mg PO DAILY 30 days clindamycin HCl 150 mg PO TID ibuprofen 800 mg PO TID levetiracetam 500 mg PO BEDTIME levetiracetam (Keppra) 500 mg PO BID melatonin 20 mg PO DAILY PRN qweywlwbplsy-Fo-syao-minerals (Multiple Vitamin, Womens tablet) 1 tab PO DAILY omeprazole 20 mg PO DAILY oxcarbazepine 600 mg PO BID 90 days tramadol 50 mg PO Q8H PRN 4 days Tobacco use date assessed: 10/24/23 Dental Screening Dental Screen Date: 10/24/23 Did you have a dental visit in the last 12 months?: Yes Did you have a dental problem in the last 6 months where you did not have access to dental care?: No Was dental information given to patient?: Patient has dentist HPI f/u MDD/ Smoking HPI Details Patient is a 52 year-old female being evaluated today via telephone only.? Patient has a past medical history significant for seizure disorder, PTSD, major depressive disorder, thyroid nodules, generalized anxiety. She is due for dental procedure. Currently in some pain as it relates to her mouth. We did send in short-term script for tramadol which she will rock picker for her pain relief. Currently on antibiotics. Concern--> continues to suffer depression, has not been able to establish care with a mental health therapist. Most of her depression stems from grieving her daughters .. Will try to establish her with mental health therapy. She denies any SI or HI. He is interested in increasing her dose of Celexa to 20 mg. .. Seizures disorder:? Patient followed by Neurology now continues on oxycarb with good effect.? Denies any recent seizures. .. Tobacco dependency:? Continues to smoke half pack of cigarettes per day. She does understand she needs to quit smoking though at this time finds it very difficult to quit., she is willing to try generic Chantix to help quit smoking. .. Thyroid nodules:? Patient followed by endocrinology, recently had ultrasound of thyroid showing -- >Heterogeneous right thyroid lobe is large, midpole nodule, which is stable and has been biopsied previously 01/31/2022. Has been having a mass over the right posterior aspect of her neck and denies any difficulty with swollen. Ultrasound of thyroid showing stable nodules and has followed up with Endocrinology about this. [facility] Medical History Primary ovarian failure Disorder of bone density and structure, unspecified Amenorrhea Vitamin D deficiency Nausea Obesity Stroke Seizures Surgical History History of biopsy Hx of ingrown nail History of lumpectomy of left breast (02/02/22) History of wisdom tooth extraction History of cholecystectomy History of hysterectomy for indication other than malignancy History of tubal ligation H/O brain surgery Family History Mother Leukemia Skin cancer Father History of cancer of unknown primary site Paternal Uncle Bone cancer Paternal Grandfather Lung cancer Other Mental health disorder Substance use disorder Social History Household Members: Significant Other Housing: Apartment Alcohol intake: never Patient Tobacco Use Status: Current everyday Tobacco user Tobacco use type: Cigarette e-Cigarette/Vaping Use: Never Used Second Hand Smoke Exposure: Yes service: No Current occupational status: employed 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 1. Little interest or pleasure in doing things: more than half the days 2. Feeling down, depressed, or hopeless: nearly every day 3. Trouble falling or staying asleep, or sleeping too much: nearly every day 4. Feeling tired or having little energy: more than half the days 5. Poor appetite or overeating: nearly every day 6. Feeling bad about yourself - or that you are a failure or have let yourself or your family down: more than half the days 7. Trouble concentrating on things, such as reading the newspaper or watching television: more than half the days 8. Moving or speaking so slowly that other people could have noticed. Or the opposite - being so fidgety or restless that you have been moving around a lot more than usual: more than half the days 9. Thoughts that you would be better off or of hurting yourself in some way: not at all Total score: 19 Depression Screening Interpretation: Positive Depression Screening Follow-up: Existing condition and Community Mental Health Worker F/U Depression Screening Done: Yes 03600 - PHQ-9 Billing: Yes Source: Developed by Drs. Reza Blandon, Brielle Ureña, Edilberto Erickson and colleagues, with an educational hemalatha from [employer] ([place]). Thrive Questionnaire Date Thrive assessed: 10/24/23 I am a: Patient What is your living situation today?: I have a steady place to live Within the past 12 months, did the food you bought not last and you didn't have the money to get more?: Never true Within the past 12 months, did you worry whether your food would run out before you got money to buy more?: Never true Do you have trouble paying for medicines?: No Do you have trouble getting transportation to medical appointments?: No Do you have trouble paying your heating and electricity bill?: No Do you have trouble taking care of your child, family member or friend?: No Do you have trouble with day-to-day activities such as bathing, preparing meals, shopping, managing finances, etc.?: No Are you currently unemployed and looking for a job?: No Are you interested in more education?: No Please select the resources that you would like help with: None Currently or been in a relationship where the following occur: no concerns reported THRIVE Score: 0 AUDIT C Alcohol Use Questionnaire (AUDIT-C) 1. How often do you have a drink containing alcohol?: Never 3. How often do you have six or more drinks on one occasion?: Never Total Score: 0 PINA-7 AMB Questionnaire PINA-7 Date PINA - 7 assessed: 10/24/23 Feeling nervous, anxious, or on edge: 2 = More than half the days Not being able to stop or control worryin = Nearly every day Worrying too much about different things: 3 = Nearly every day Trouble relaxin = More than half the days Being so restless that it is hard to sit still: 2 = More than half the days Becoming easily annoyed or irritable: 0 = Not at all Feeling afraid as if something awful might happen: 2 = More than half the days Total PINA-7 score (0-4 normal; 5-9 mild; 10-14 moderate; 15-21 severe): 14 Source: Developed by Drs. Reza Blandon, Brielle Ureña, Edilberto Erickson and colleagues, with an educational hemalatha from [employer] ([place]). PINA-7 Assessment Billing PINA-7 Assessment Tool: PINA-7 Assessment 38283 Review of Systems Const Denies headache(s) Eyes Denies loss of vision ENT Denies vertigo, Denies dizziness, Denies headache(s) and Denies sore throat Card Denies chest pain, Denies leg edema and Denies lightheadedness Resp Denies cough, Denies hemoptysis and Denies wheezing GI Denies abdominal pain, Denies melena, Denies constipation, Denies diarrhea and Denies vomiting Denies urinary frequency, Denies dysuria and Denies urinary urgency Musc Denies arthralgias, Denies joint swelling, Denies numbness and Denies tingling Neuro Denies behavioral changes, Denies vertigo, Denies dizziness, Denies headache(s), Denies loss of vision, Denies memory loss, Denies numbness and Denies tingling Psych Reports anxiety, Denies behavioral changes, Reports depression, Reports hopelessness, Denies memory loss, Reports mood swings and Denies panic attacks Steve/Lymph Denies easy bleeding and Denies easy bruising Aller/Immun Denies wheezing Physical exam (Primary Care) Tobacco/Smoking Status: Tobacco use Status Tobacco use date assessed 10/24/23 10/24/23 09:47 Patient Tobacco Use Status Current everyday Tobacco 10/24/23 09:47 Tobacco use type Cigarette 10/24/23 09:47 e-Cigarette/Vaping Use Never Used 10/24/23 09:47 PHQ-9: PHQ-9 Score PHQ-9: Total score 19 10/24/23 10:12 Depression Screening Interpretation: Positive Depression Screening Follow-up: Existing condition and Community Mental Health Worker F/U Thrive Assessment: Date of Thrive Assessment Date Thrive assessed 10/24/23 10/24/23 09:47 Currently or been in a relationship where the following occur: no concerns reported Telehealth Telehealth Location of provider rendering services: practice address Location of patient: address on file Patient Identification confirmed using: Name, : Yes Telehealth method: voice only Patient verbally consented to treatment: Yes Patient verbally consented to billing insurance company: Yes Patient informed of any privacy concerns related to visit: Yes Minutes spent on Phone/Video with Pt.: 11 Assessment and Plan Assessment & Plan (1) Pain, dental: Code(s): K08.89 - Other specified disorders of teeth and supporting structures Plan: As per HPI patient due for dental procedure for removal of molar. She has pain and currently on antibiotics. Was sent in tramadol to use on a short-term basis for her pain as well. (2) Pre-op evaluation: Code(s): Z01.818 - Encounter for other preprocedural examination Plan: Patient is medically clear for needed dental extraction. (3) MDD (major depressive disorder), recurrent episode, moderate: Code(s): F33.1 - Major depressive disorder, recurrent, moderate Plan: Patient's PHQ-9 score positive for depression which has been existing condition for her. She is interested in setting up cognitive behavioral therapy. Also interested in increasing her SSRI therapy to 20 mg. (4) PINA (generalized anxiety disorder): Code(s): F41.1 - Generalized anxiety disorder Plan: Patient's PINA-7 score positive for anxiety which has been existing condition for her. Again interested in mental health therapy Orders: Orders TSH reflex Free T4 Today E04.1 - Nontoxic single thyroid nodule Vitamin D 25-OH Total Today E55.9 - Vitamin D deficiency, unspecified Comprehensive [place]. Panel Fast Today Z13.1 - Encounter for screening for diabetes mellitus Referrals Counseling Referral F33.1 - Major depressive disorder, recurrent, moderate Medications: New citalopram (Celexa) 20 mg PO DAILY 30 days 30 tabs 3RF F33.1 - Major depressive disorder, recurrent, moderate Discontinued citalopram (Celexa) Discontinued Reason: Doctor's Order 10 mg PO DAILY 30 days 30 tabs 2RF F33.1 - Major depressive disorder, recurrent, moderate Coding Level of Care Code Tele Est Pt Level 4 (37946) Diagnoses Pain, dental K08.89 Pre-op evaluation Z01.818 MDD (major depressive disorder), recurrent episode, moderate F33.1 PINA (generalized anxiety disorder) F41.1 Additional Codes PINA-7 Assessment Billing - PINA-7 Assessment Tool: PINA-7 Assessment 94629 ([id number])
--- OUTSIDE RECORDS SUMMARY | 2023-10-24 09:49 | XMS_ITS | Continuity of Care Document ---
Author Name Unknown Organization [facility] Address [address] [facility], [address]r d Floor, [address] [place] [id number]- Care Team Providers Care Neonatal Nurse Name Role Phone Ayush Monreal Primary Care Physician [phone] Encounter [facility] Date(s): 06/02/23 - 08/19/23 [facility] [address], [address] Floor, [address] [place] [id number] Attending Physician: Hilary JAMES, Rosaura Castro Admitting Physician: Rosaura Richard MD Referring Physician: Ayush Monreal Allergies, Adverse Reactions, Alerts Substance Reaction Severity [...] vaccine 05/18/13 Given 1Result Comment: [07/06/2017] [facility]:[id number] 2Result Comment: [06/19/2013] [facility] Medications aspirin [...] Replace Required Details, Route to Pharmacy Electronically, [id number], [facility]/pharmacy #[id number] Start Date: 09/25/18 [...] Refills, Maintenance, 10/18/19 11:02:00 EST, DIS Tablet, [facility]/pharmacy #2024, 163.4, cm, 10/18/19 [...] Reference Physician Member Role: PCP Address: Address: [address] [place] [address]- Care Team Related Persons Name: SOMMER TIM Address: home [address] [place] [address] Name: JAQUELINE JETER Address: home [address] [place] [address]
--- OUTSIDE RECORDS SUMMARY | 2023-10-24 09:49 | XMS_ITS | Continuity of Care Document ---
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 Role Phone Ayush Monreal Primary Care Physician [phone] Encounter [facility] Date(s): 07/20/23 - 08/19/23 [facility] [address], [address] Floor, [address] [place] [id number] Attending Physician: Admdania, [place]8 Admitting Physician: Admtr, [place]8 Referring Physician: Admtr, Ar8 Allergies, Adverse Reactions, Alerts [...] 23-valent vaccine 05/18/13 Given 1Result Comment: [07/06/2017] [facility]:[id number] 2Result Comment: [06/19/2013] [facility] Medications aspirin [...] Replace Required Details, Route to Pharmacy Electronically, [id number], [facility]/pharmacy #[id number] Start Date: 09/25/18 Status: Ordered Vimpat [...] Maintenance, 10/18/19 11:02:00 EST, DIS Tablet, [facility]/pharmacy #2024, 163.4, cm, 10/18/19 10:44:00 EST, Height [...] Physician Member Role: PCP Address: Address: [address] [place], [place] [address] Care Team Related Persons Name: SOMMER TIM Address: [address] [place] [address] Name: JAQUELINE JETER Address: [address] [place] [address]
== END 2023-10-24 10:23 | disposition home or self-care (01) ==
LOC: HO.HMGH 09:48
PROVIDERS: PCP Physician Assistant; Visit Provider Physician Assistant
DX: K08.89 Other specified disorders of teeth and supporting structures (principal); Z01.818 Encounter for other preprocedural examination; F33.1 Major depressive disorder, recurrent, moderate; F41.1 Generalized anxiety disorder
CPT/HCPCS: 99214

== ENCOUNTER 2023-11-08 13:02 | Outpatient (AMB) | payer MEDICARE, MEDICAID, SELFPAY ==
--- NOTE | 2023-11-08 13:14 | A.OFFVIS_ITS ---
Intake Vital Signs 3 11/08/23 13:18 Height 5 ft 4 in Weight 156 lb 8 oz BMI 26.9 BP 121/73 Blood Pressure Location Lt brachial Position Sitting Pulse 82 Intake Visit Reasons: left breast lump Intake Note: Patient is seen in office for left breast lump. 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 Accompanied by: Other Relationship Allergies aspirin [ASPIRIN] Adverse Reaction (Severe, Verified 11/08/23 13:16) GI BLEEDING hydromorphone [From DILAUDID] Adverse Reaction (Severe, Verified 11/08/23 13:16) VIOLENT NSAIDS (Non-Steroidal Anti-Inflamma [NSAIDS (NON-STEROIDAL ANTI-INFLAMMA] Adverse Reaction (Severe, Verified 11/08/23 13:16) GI BLEEDING sertraline Adverse Reaction (Intermediate, Verified 11/08/23 13:16) Itch oxycodone Adverse Reaction (Verified 11/08/23 13:16) Nausea and Vomiting penicillin Allergy (Unknown, Uncoded 11/08/23 13:16) Hives Medication List - Last Reconciled 11/08/23 by Sami Parkinson MD cefuroxime axetil 250 mg PO BID 7 days chlorhexidine gluconate 0.12% PO cholecalciferol (vitamin D3) 50 mcg PO DAILY clindamycin HCl 150 mg PO TID ibuprofen 800 mg PO TID levetiracetam 500 mg PO BEDTIME levetiracetam (Keppra) 500 mg PO BID melatonin 20 mg PO DAILY PRN [id number]-Pn-bikk-minerals (Multiple Vitamin, Womens tablet) 1 tab PO DAILY omeprazole 20 mg PO DAILY oxcarbazepine 600 mg PO BID 90 days HPI HPI Comments 2 History of Present Illness0 Details 52-year-old female patient returning for evaluation of a new lump in the left breast noted approximately 2 weeks ago. She feels the lump has increased in size over the past 2 weeks and is now causing discomfort. She denies any bleeding or discharge and is uncertain if this is near her previous biopsy site. She denies any new symptoms in the right breast. [facility] Medical History Left breast lump Primary ovarian failure Disorder of bone density and structure, unspecified Amenorrhea Vitamin D deficiency Nausea Obesity Stroke Seizures Surgical History History of biopsy Hx of ingrown nail History of lumpectomy of left breast (02/02/22) History of wisdom tooth extraction History of cholecystectomy History of hysterectomy for indication other than malignancy History of tubal ligation H/O brain surgery Family History Mother Leukemia Skin cancer Father History of cancer of unknown primary site Paternal Uncle Bone cancer Paternal Grandfather Lung cancer Other Mental health disorder Substance use disorder Social History Household Members: Significant Other Housing: Apartment Alcohol intake: never Patient Tobacco Use Status: Current everyday Tobacco user Tobacco use type: Cigarette e-Cigarette/Vaping Use: Never Used Second Hand Smoke Exposure: Yes service: No Current occupational status: employed Current occupation: [employer] Cognitive needs: Yes Hearing needs: No Vision needs: Yes (glasses) Review of Systems Const Denies chills, Denies fever(s), Denies headache(s) and Denies poor appetite ENT Denies dizziness and Denies headache(s) Card Denies chest pain, Denies rapid heart rate, Denies palpitations and Denies slow heart rate Resp Denies chest congestion, Denies cough, Denies pain on inspiration and Denies wheezing GI Denies abdominal pain, Denies bloating, Denies change in stool character, Denies constipation, Denies diarrhea, Denies nausea, Denies vomiting and Denies hematemesis Denies nipple discharge Musc Denies back pain, Denies arthralgias, Denies joint swelling and Denies numbness Skin/Breast Reports as per HPI, Reports breast skin changes, Reports breast pain, Reports breast mass, Denies change in breast shape, Denies change in pigmentation, Denies nipple discharge, Denies erythema and Denies rash Neuro Denies dizziness, Denies headache(s) and Denies numbness Psych Denies anxiety and Denies depression Endo Denies palpitations Steve/Lymph Denies easy bleeding, Denies easy bruising and Denies lymphadenopathy Aller/Immun Denies wheezing Physical Exam Const General: no acute distress Nutritional Appearance: well nourished Orientation/consciousness: patient oriented x3 Limitations: no limitations Chest Other: Left breast with a well-healed incision in the 12 o'clock position. Matilde areolar mass located just below the the incision suggestive of underlying scar tissue measuring approximately 1 cm in diameter. No new overlying skin change or redness. Nipple discharge could not be expressed. No other palpable mass appreciated. Chest/axillae images: 2 1. Site of palpable mass below incision left breast 12 o'clock position. Findings suggestive of underlying scar. Resp Effort & Inspection: normal respiratory effort, no audible wheezes, no cough and no respiratory distress Skin Other: Warm, dry, no rash Neuro General: patient oriented x3 Extrem General: Yes no clubbing, cyanosis or edema Assessment & Plan Assessment & Plan (1) Left breast lump: Code(s): N63.20 - Unspecified lump in the left breast, unspecified quadrant Qualifiers: Breast mass location: subareolar Qualified Code(s): N63.42 - Unspecified lump in left breast, subareolar Plan New mass located in the left breast at 12:00 o'clock subareolar, tender to palpation. On examination the findings are suggestive of scar tissue. I recommended further evaluation with a limited ultrasound of the left breast. She will follow-up based on the ultrasound findings. Orders: Orders 2 US breast LT limited Today N63.20 - Unspecified lump in the left breast, unspecified quadrant Coding Level of Care Code Est Pt Level 3 (95473) Diagnoses Subareolar mass of left breast N63.42 Breast mass location: subareolar
[2023-11-08 13:18] VITALS: BP 121/73; PULSE 82; BMI 26.9
== END 2023-11-08 13:41 | disposition home or self-care (01) ==
PROVIDERS: PCP Physician Assistant; Visit Provider Surgery
DX: N63.42 Unspecified lump in left breast, subareolar (principal)
CPT/HCPCS: 99213

== ENCOUNTER → 2023-11-08 13:02 | Outpatient (BNVA) | payer MEDICARE, MEDICAID, SELFPAY | PROVIDERS: PCP Physician Assistant; Visit Provider Surgery | DX: N63.42 Unspecified lump in left breast, subareolar (principal) | CPT/HCPCS: 99212 ==

== ENCOUNTER 2023-11-20 11:07 | Outpatient (REF) | payer OTHER, SELFPAY ==
--- NOTE | ~2023-11-20 | US_ITS ---
EXAMINATION: MM DIAGNOSTIC DIGITAL BREAST TOMOSYNTHESIS, BILATERAL US BREAST LIMITED, LEFT MAMMOGRAPHY: CLINICAL INFORMATION: 52-year-old female, history of benign lumpectomy in the 12:00 periareolar region left breast in 2021, with pathology yielding benign breast parenchyma with cystic papillary apocrine metaplasia and dilated ducts, negative for malignancy. Patient now complaining of enlarging palpable lump just above left nipple at site of surgery, slightly painful, states enlarging over the last few weeks. COMPARISON: Mammography: 12/20/2021 bilateral mammography and bilateral targeted breast ultrasound. Old exam 05/24/2013. MRI bilateral breasts 12/30/2021. TECHNIQUE: Digital breast tomosynthesis is performed in both the craniocaudal and mediolateral oblique views along with computer-aided detection (CAD). Synthesized 2D images are generated from the tomosynthesis. In addition, full-field left 3-D mediolateral view was obtained, as well as 3-D spot compression left CC and MLO views. FINDINGS: There are scattered areas of fibroglandular density (ACR BI-RADS breast composition Category b). RIGHT BREAST: -There is a stable small nodule in the lateral anterior right breast without change. There are no suspicious masses, suspicious grouped calcifications, or areas of architectural distortion in either breast. The parenchymal pattern is stable from prior exams. No skin or axillary abnormalities. LEFT BREAST: In the 1:00 axis left breast periareolar, in the region of palpable concern and also in the region of prior scar, there is a centrally lucent oval region with surrounding satellite soft tissue density highly suspect for a region of fat necrosis. This region measures approximately 1.4 x 1.4 x 2.5 cm on tomographic images and is consistent with the palpable focus of concern. This will be evaluated by ultrasound. A previously seen nodular density in the superior left breast is no longer visualized. This was previously characterized as a cyst. Otherwise, there are no suspicious masses, suspicious grouped calcifications, or areas of architectural distortion in either breast. The parenchymal pattern is stable from prior exams. No skin or axillary abnormalities. ULTRASOUND: CLINICAL INFORMATION: Evaluate oval region of probable fat necrosis 12:00 axis left breast, anterior one third, correlating with focus of palpable concern. COMPARISON: 12/20/2021 ultrasound left breast. TECHNIQUE: Targeted sonographic evaluation was performed using a high frequency linear transducer. Selected archived documentation. FINDINGS: LEFT BREAST: In the 12:00 axis retroareolar, there is a markedly hypoechoic to anechoic oval region measuring 1.2 x 1.0 x 1.3 cm, with a small amount of mural degree internally, mild posterior acoustic shadowing, no internal or peripheral blood flow on color Doppler imaging, mildly hyperechoic surrounding rim of fat, findings all consistent with a markedly hypoechoic focus of fat necrosis. This is also correlating well with the focus of palpable concern. Because of patient concern and history, ultrasound-guided biopsy recommended for confirmation. US/US breast LT limited mamm only IMPRESSION: 12:00 axis probable focus of fat necrosis left retroareolar region measuring 1.2 x 1.0 x 1.3 cm on sonography, correlating well with the focus of left breast palpable concern. Ultrasound-guided biopsy recommended to confirm diagnosis. Findings and recommendations were discussed with the patient in detail. No suspicious findings in the right breast. OVERALL ASSESSMENT: Mammography: BI-RADS 4 - Suspicious finding Ultrasound: BI-RADS 4 - Suspicious finding RECOMMENDATION: Biopsy recommended
== END 2023-11-20 11:08 | disposition home or self-care (01) ==
LOC: HO.MAMMO 11:07
PROVIDERS: PCP Physician Assistant; Visit Provider Surgery
DX: N63.25 Unspecified lump in the left breast, overlapping quadrants (principal)
CPT/HCPCS: 76642; 77062; 77066

== ENCOUNTER → 2023-11-20 11:30 | Outpatient (BNV) | payer OTHER, SELFPAY | PROVIDERS: PCP Physician Assistant; Visit Provider Radiology Diagnostic Radiology | DX: N64.1 Fat necrosis of breast (principal) | CPT/HCPCS: 76642; 77066 ==

== ENCOUNTER 2023-11-22 13:27 | Outpatient (REF) | payer OTHER, SELFPAY ==
--- NOTE | ~2023-11-22 | MM_ITS ---
PROCEDURE: US GUIDED BREAST BIOPSY, LEFT CLINICAL INFORMATION: Area of palpable concern in the 1:00 axis left breast periareolar, fat density on mammography, extremely hypoechoic on ultrasound with mild irregularity, suspicious for fat necrosis. Ultrasound-guided biopsy recommended for confirmation. COMPARISON: 11/20/2023 left mammogram and ultrasound. PROCEDURAL DETAILS: The details of the procedure, as well as the risks, benefits, and alternatives to the procedure were explained to the patient in detail and all of her questions were answered, after which written informed consent was obtained. Site and side were confirmed. Prior to the procedure, sonography revealed a 12-1 o'clock markedly hypoechoic irregular retroareolar mass with mild posterior sound attenuation, and surrounding hyperechoic fat with slightly irregular margins, measuring 1.2 x 1.1 x 1.3 cm. A time-out was performed, the lesion intended for biopsy was targeted, and the skin of the overlying left breast was then marked, prepped and draped in the usual sterile fashion. Using sonographic guidance, sterile technique, and 1% lidocaine without epinephrine for local anesthesia, multiple core biopsies were obtained through the targeted area with a 14G spring loaded Colibríera core biopsy device. There was real-time confirmation of appropriate needle passage. Sampling was documented. At the completion of tissue sampling, a single butterfly-shaped metallic clip was deposited at the biopsy site. It was noted the central extremely hypoechoic aspect was cystic in nature with specular debris. This is in keeping with likely fat necrosis. There was no evidence of immediate complication. SPECIMEN: 4 somewhat fragmented core samples were obtained, in keeping with expected fat necrosis. DIGITAL POST-PROCEDURE MAMMOGRAPHY: Breast density: The tissue contains scattered areas of fibroglandular density. BI-RADS version 5, category B. There are no new mammographic findings demonstrated. The postprocedure 2-view direct digital mammogram reveals satisfactory and accurate positioning of the biopsy clip. No hematoma present. The patient tolerated the procedure well and, after assuring adequate hemostasis, was discharged in good condition after reviewing postbiopsy breast care instructions. Final pathology results are pending. MM/MM tomosynthesis diagnostic LT IMPRESSION: 1. No immediate complication from ultrasound-guided percutaneous biopsy left breast markedly hypoechoic palpable mass measuring 1.2 x 1.1 x 1.3 cm in the 12-1 o'clock retroareolar region, most likely a region of fat necrosis. 2. Ultrasound was used to localize and guide marker clip placement. No evidence of hematoma or complication. 3. The 2-view direct digital postprocedure mammogram reveals satisfactory and accurate positioning of the biopsy clip. 4. Final pathology results are pending. A separate report with final recommendations will be issued once these results are made available.
[2023-11-22] MEDS: Sodium Bicarbonate 8.4% 50 MEQ/50 ML VIAL SUBCUT (14:38)
[2023-11-22] MEDS: Lidocaine HCl 1 % 20 ML VIAL 9 ML SUBCUT (14:38)
== END 2023-11-22 13:28 | disposition home or self-care (01) ==
LOC: HO.MAMMO 13:27
PROVIDERS: PCP Physician Assistant; Visit Provider Surgery
DX: R92.8 Other abnormal and inconclusive findings on diagnostic imaging of breast (principal)
CPT/HCPCS: 19083; 77061; 77065; 88305; 88341; 88342; A4648; C1894

== ENCOUNTER → 2023-11-22 13:30 | Outpatient (BNV) | payer OTHER, SELFPAY | PROVIDERS: PCP Physician Assistant; Visit Provider Radiology Diagnostic Radiology | DX: N64.1 Fat necrosis of breast (principal) | CPT/HCPCS: 19083; 77065 ==

== ENCOUNTER 2023-11-28 13:25 | Outpatient (AMB) | payer OTHER, SELFPAY ==
--- NOTE | 2023-11-28 13:32 | MHC.OFFVIS ---
Intake Vital Signs 11/28/23 13:34 Height 5 ft 4 in Weight 158 lb 4.67 oz BMI 27.2 BP 152/77 H Blood Pressure Location Lt brachial Position Sitting Pulse 84 Intake Visit Reasons: S/p US aspiration BX left breast Intake Note: Patient is seen in office for ultrasound biopsy results, following aspiration of left breast. 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 Accompanied by: Family/Other Allergies aspirin [ASPIRIN] Adverse Reaction (Severe, Verified 11/28/23 13:34) GI BLEEDING hydromorphone [From DILAUDID] Adverse Reaction (Severe, Verified 11/28/23 13:34) VIOLENT NSAIDS (Non-Steroidal Anti-Inflamma [NSAIDS (NON-STEROIDAL ANTI-INFLAMMA] Adverse Reaction (Severe, Verified 11/28/23 13:34) GI BLEEDING sertraline Adverse Reaction (Intermediate, Verified 11/28/23 13:34) Itch oxycodone Adverse Reaction (Verified 11/28/23 13:34) Nausea and Vomiting penicillin Allergy (Unknown, Uncoded 11/28/23 13:34) Hives Medication List - Last Reconciled 11/28/23 by Sami Parkinson MD cefuroxime axetil 250 mg PO BID 7 days chlorhexidine gluconate 0.12% PO cholecalciferol (vitamin D3) 50 mcg PO DAILY clindamycin HCl 150 mg PO TID ibuprofen 800 mg PO TID levetiracetam 500 mg PO BEDTIME levetiracetam (Keppra) 500 mg PO BID melatonin 20 mg PO DAILY PRN [id number]-[id number]-minerals (Multiple Vitamin, Womens tablet) 1 tab PO DAILY omeprazole 20 mg PO DAILY oxcarbazepine 600 mg PO BID 90 days HPI HPI Comments History of Present Illness Details Katie returns 1 week following core biopsy left breast. Pathology revealed benign breast tissue. She tolerated the procedure well but does report some discomfort in the left arm since the procedure. She denies any bleeding or discharge from the incision. [facility] Medical History Left breast lump Primary ovarian failure Disorder of bone density and structure, unspecified Amenorrhea Vitamin D deficiency Nausea Obesity Stroke Seizures Surgical History History of biopsy Hx of ingrown nail History of lumpectomy of left breast (02/02/22) History of wisdom tooth extraction History of cholecystectomy History of hysterectomy for indication other than malignancy History of tubal ligation H/O brain surgery Family History Mother Leukemia Skin cancer Father History of cancer of unknown primary site Paternal Uncle Bone cancer Paternal Grandfather Lung cancer Other Mental health disorder Substance use disorder Social History Household Members: Significant Other Housing: Apartment Alcohol intake: never Patient Tobacco Use Status: Current everyday Tobacco user Tobacco use type: Cigarette e-Cigarette/Vaping Use: Never Used Second Hand Smoke Exposure: Yes service: No Current occupational status: employed Current occupation: [employer] Cognitive needs: Yes Hearing needs: No Vision needs: Yes (glasses) Physical Exam Vital Signs: Last Vital Signs Pulse 84 11/28/23 13:34 BP 152/77 H 11/28/23 13:34 BMI result Body Mass Index 27.2 Const General: no acute distress Nutritional Appearance: well nourished Chest Other: Exam deferred Skin Other: Warm, dry, no rash Assessment & Plan Assessment & Plan (1) Abnormal ultrasound of breast: Code(s): R92.8 - Other abnormal and inconclusive findings on diagnostic imaging of breast Plan Patient returns 1 week following right breast needle core biopsy. She tolerated the procedure well her pathology was benign. She should follow up as needed. Coding Level of Care Code Est Pt Level 3 (15993) Diagnoses Abnormal ultrasound of breast R92.8
[2023-11-28 13:34] VITALS: BP 152/77; PULSE 84; BMI 27.2
== END 2023-11-28 13:36 | disposition home or self-care (01) ==
PROVIDERS: PCP Physician Assistant; Visit Provider Surgery
DX: R92.8 Other abnormal and inconclusive findings on diagnostic imaging of breast (principal)
CPT/HCPCS: 99213

== ENCOUNTER → 2023-11-28 13:25 | Outpatient (BNVA) | payer OTHER, SELFPAY | PROVIDERS: PCP Physician Assistant; Visit Provider Surgery | DX: R92.8 Other abnormal and inconclusive findings on diagnostic imaging of breast (principal) | CPT/HCPCS: 99212 ==

== ENCOUNTER 2024-04-25 12:55 | Emergency (ER) | payer MEDICARE, MEDICAID, SELFPAY ==
--- NOTE | ~2024-04-25 | CT_ITS ---
EXAMINATION: CT HEAD WITHOUT CONTRAST (STROKE PROTOCOL) CLINICAL INFORMATION: Stroke protocol. Acute lesion changes COMPARISON: 01/20/2021 TECHNIQUE: Contiguous axial imaging was performed from the skull base to vertex without intravenous administration of contrast. This CT examination was performed using dose optimization techniques as appropriate, variously including the following: *Automated exposure control *Adjustment of mA and/or kV according to patient size (this includes techniques or standardized protocols for targeted exams where dose is matched to indication/reason for exam; i.e. extremities or head) *Use of iterative reconstruction technique DLP: 640 mGy-cm FINDINGS: There is no evidence of acute intracranial abnormalities. There is stable and chronic changes with significant size encephalomalacia in the left posterior parietal-occipital lobe, inseparable from left occipital horn of lateral ventricle. There are patchy areas of hypoattenuation surrounding described area of encephalomalacia. On the right, there is small lacunar infarct in the right occipital lobe, stable since previous study also. There are patchy periventricular white matter changes seen in frontal lobes bilaterally. No evidence of intracranial hemorrhage, masses, mass effect, midline shift. Osseous structures are unremarkable. There is large mucous retention cyst in the right maxillary sinus, new since 2020. CT/CT head for stroke IMPRESSION: 1. No acute intracranial pathology. 2. Chronic changes of marked encephalomalacia in the left posterior parietal-occipital lobe and small lacunar infarct in the right occipital lobe. Patchy periventricular white matter changes 3. Large mucous retention cyst in the right maxillary sinus. This critical result was discussed with Wade Glez at 1:20 PM hours on 04/25/2024. It was ascertained that the content and urgency of the report was understood at the time of direct communication.
--- NOTE | ~2024-04-25 | CT_ITS ---
EXAMINATION: CT angio head neck stroke CLINICAL INFORMATION: Acute vision changes. COMPARISON: CT head 04/25/2024. TECHNIQUE: Slab Lifting Engineer images were obtained. A CT angiogram of the head and neck was performed in the arterial phase after the intravenous administration of 50 mL Omnipaque 350. Pre and delayed postcontrast images of the head were also obtained. 3D images were processed on an independent workstation under concurrent supervision. Arterial stenoses are measured in accordance with NASCET criteria or similar method if applicable. This CT examination was performed using dose optimization techniques as appropriate, including one or more of the following: Automated exposure control, iterative reconstruction, and adjustment of technique factors (mA and/or kVp) according to patient size (this includes techniques or standardized protocols for targeted exams where dose is matched to indication/reason for exam). Fleischner Society criteria for the followup of incidental pulmonary nodules was implemented if appropriate. Total exam dose-length product 1443 mGy-cm FINDINGS: Head: There are chronic postoperative changes of a left craniotomy and there is a cystic cavity located within the left occipital lobe with associated ex vacuo enlargement of the left atrium and occipital horn. A few scattered nonspecific foci of hypoattenuation are visualized within the periventricular white matter. Young-white matter differentiation is otherwise preserved and there is no evidence of acute territorial infarct. Postcontrast images reveal no abnormal intracranial mass or enhancement. No intracranial mass effect or hydrocephalus. The skull base is grossly intact. No mastoid or middle ear effusion. No active paranasal sinus disease. There is however a retention cyst located within the alveolar recess of the right maxillary sinus. Globes and orbits are grossly symmetric. 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 The aortic arch apex is otherwise unremarkable. Origins of the major aortic branches are widely patent. Common carotid arteries are normal. There is a contour abnormality along the medial wall of the right carotid bifurcation that may either represent a carotid web or a carotid plaque. Of the left carotid bifurcation is unremarkable. No stenosis of the extracranial internal carotid arteries. The cervical segments of the vertebral arteries are patent. CT angiogram head: Intracranial internal carotid arteries are normal. The intradural vertebral artery segments and basilar artery are normal. Anterior, middle, and posterior cerebral artery complexes are normal. No intracranial large vessel occlusion. No identifiable aneurysm or high flow vascular lesion. The timing of the contrast injection provides adequate opacification of the dural venous sinuses which are patent. Other: There are multiple nodules within both lobes of the thyroid gland, the largest which involves the right thyroid lobe measuring 2.6 cm in maximal transaxial dimension. There are no pathologically enlarged cervical lymph nodes. No pneumothorax or adenopathy is visualized within the ecrko-wi-[id number] of this examination. CT/CT angio head neck stroke IMPRESSION: There is a contour abnormality at the medial wall of the right carotid bifurcation that may represent a chronic wedge or a carotid plaque. Otherwise no stenosis of the cervical carotid or vertebral arteries. No intracranial vessel occlusion. There chronic postoperative changes of a left craniotomy and there is a cystic cavity located within the left occipital lobe. Otherwise no evidence of acute territorial infarct or hemorrhage. No abnormal intracranial mass or enhancement. Of note there is a 2.6 cm nodule within the right thyroid lobe that appears to have increased in size when compared to recent prior sonographic imaging of the thyroid gland from 11/23/2022. Follow-up carotid ultrasound can be taken to corroborate this finding and to guide further management. This critical result was discussed with Alcides Glez at 2:03 on 04/25/2024 and it was ascertained that the content and urgency of the report was understood at the time of direct communication.
[2024-04-25 13:02] VITALS: BP 136/74; PULSE 80; RESP 18; TEMP 36.8; O2SAT 100; BMI 28.1
--- NOTE | 2024-04-25 13:03 | ED_ITS ---
HPI - Neuro Symptoms/Deficit General Chief Complaint: Neuro Symptoms/Deficit Stated Complaint: vision problems hx of seizures Time Seen by Provider: 04/25/24 13:07 Source: patient Mode of arrival: ambulatory Limitations: no limitations History of Present Illness ED Provider: Dr. Alcides Allison HPI Narrative: 54-year-old female history ofof MS, TBI, seizure, depression, anxiety, stroke with loss of peripheral vision at age 24 when she was who presents emergency department for evaluation of change in her vision that came on suddenly at 12:10.. Patient states she was sitting and she felt like her vision was distorted as if she was opening her eyes under water. She also states that she noted a ring of black dots in both eyes that were spinning. She states she had similar patient changes in the past but they have been very brief and have never been persistent. She states that when she was at age 24 she had a stroke with loss of her peripheral. Vision. Patient denied headache, nausea or vomiting. She denied numbness or weakness. Patient was seen by provider at triage and stroke protocol was activated and the patient was brought directly to CT scan for CT scan of the head without IV contrast and CT angiogram head and neck. Related Data Home Medications ?Medication ?Instructions ?Recorded ?Confirmed diqxugpqbdam-Qc-dbks-minerals 1 tab PO DAILY 03/17/21 11/28/23 (Multiple Vitamin, Womens tablet) melatonin 10 mg chewable tablet 20 mg PO DAILY PRN Sleep 06/05/23 11/28/23 levetiracetam 500 mg tablet 500 mg PO BEDTIME 08/04/23 11/28/23 chlorhexidine gluconate 0.12 % PO 10/24/23 11/28/23 mouthwash clindamycin HCl 150 mg capsule 150 mg PO TID 10/24/23 11/28/23 ibuprofen 800 mg tablet 800 mg PO TID 10/24/23 11/28/23 Previous Rx's ?Medication ?Instructions ?Recorded omeprazole 20 mg capsule,delayed 20 mg PO DAILY #90 caps 12/13/22 release oxcarbazepine 600 mg tablet 600 mg PO BID 90 days #180 tabs 12/13/22 cefuroxime axetil 250 mg tablet 250 mg PO BID 7 days #14 tabs 08/05/23 levetiracetam 500 mg tablet 500 mg PO BID #60 tabs 08/05/23 (Keppra) cholecalciferol (vitamin D3) 50 50 mcg PO DAILY #30 caps 10/11/23 mcg (2,000 unit) capsule dlepymk-nybvkfrsasodf-xebvglni 250 2 tab PO Q6H PRN headache #20 tabs 04/25/24 mg-250 mg-65 mg tablet (Excedrin Extra Strength) diphenhydramine HCl 25 mg capsule 50 mg (2 x 25 mg) PO Q6H PRN 04/25/24 headache, nausea, vomiting #20 caps metoclopramide HCl 10 mg tablet 10 mg PO Q6H PRN nausea and 04/25/24 (Reglan) vomiting #14 tabs Allergies Allergy/AdvReac Type Severity Reaction Status Date / Time aspirin [ASPIRIN] AdvReac Severe GI BLEEDING Verified 04/25/24 13:03 hydromorphone [From DILAUDID] AdvReac Severe VIOLENT Verified 04/25/24 13:03 NSAIDS (Non-Steroidal AdvReac Severe GI BLEEDING Verified 04/25/24 13:03 Anti-Inflamma [NSAIDS (NON-STEROIDAL ANTI-INFLAMMA] sertraline AdvReac Intermediate Itch Verified 04/25/24 13:03 oxycodone AdvReac Nausea and Verified 04/25/24 13:03 Vomiting penicillin Allergy Unknown Hives Uncoded 11/28/23 13:34 Review of Systems 2 Review of Systems: Yes all other systems are reviewed and are negative [facility] Past Medical History [facility] Narrative: Social history: The patient does smoke cigarettes. She does denied drug and alcohol use. Medical History Left breast lump Primary ovarian failure Disorder of bone density and structure, unspecified Amenorrhea Vitamin D deficiency Nausea Obesity Stroke Seizures Surgical History History of biopsy Hx of ingrown nail History of lumpectomy of left breast (02/02/22) History of wisdom tooth extraction History of cholecystectomy History of hysterectomy for indication other than malignancy History of tubal ligation H/O brain surgery Family History Family History Mother Leukemia Skin cancer Father History of cancer of unknown primary site Paternal Uncle Bone cancer Paternal Grandfather Lung cancer Other Mental health disorder Substance use disorder Social History Social History Household Members: Significant Other Housing: Apartment Alcohol intake: never Patient Tobacco Use Status: Current everyday Tobacco user Tobacco use type: Cigarette Smoked in Last 30 Days: Yes e-Cigarette/Vaping Use: Never Used Second Hand Smoke Exposure: Yes Use of substances other than those prescribed or required for medical reasons: No Advance Directives: No Advance Directives Information Provided: Yes service: No Current occupational status: employed 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 Neck: Supple, no adenopathy Lung: breath sounds symmetric, no wheezing, rales or rhonchi Chest: symmetric movement, nontender Heart: regular rate and rhythm, normal S1, S2 no murmurs or rubs Abdomen: soft, non-tender, nondistended, normal bowel sounds Back: no vertebral tenderness, no CVAT Extremities: no deformities, moves all extremities symmetrically Neuro: General: Awake, alert, oriented to person place, date Cranial nerves: 2 through 12 are intact Vision: Patient can identify objects but she states that they are distorted. She can read numbers but they are distorted as well. Strength: Upper extremities 5/5, lower extremities 4/5 Cerebellar: Good tulxwm-uq-vtyr-to-finger, good heel to gaytan Psych: Pleasant, cooperative Course Course Course Narrative: This is a Rapid Medical Examination (RME) performed by Shannan Ward PA-C in triage. Full HPI, ROS, assessment and treatment plan per primary provider in the Main ED. 53 yo female with history of seizures, TBI, CVA at age 24 with loss of peripheral vision who presents to the ER for evaluation of vision changes with everything looking like it's underwater. Symptoms started 1 hour ago. No pain. No numbness, weakness, tingling, dysarthria. Plan: joyce protocol. D/w Dr. allison Medications Administered Discontinued Medications Generic Name Dose Route Start Last Admin Trade Name Marly PRN Reason Stop Dose Admin Diphenhydramine HCl 50 mg 04/25/24 13:53 04/25/24 14:07 Diphenhydramine Hcl 50 Mg/Ml Vial IVPUSH 04/25/24 13:54 50 mg ONCE STA Administration Sodium Chloride 1,000 mls @ 999 mls/hr 04/25/24 13:53 04/25/24 14:06 Ns IV 04/25/24 14:53 999 mls/hr .Q1H1M STA Administration Iohexol 100 ml 04/25/24 13:30 04/25/24 13:30 Iohexol 350 Mg/Ml 100 Ml Infus..Btl IV 04/25/24 13:31 70 ml ONCE ONE Administration Lorazepam 1 mg 04/25/24 13:53 04/25/24 14:07 Lorazepam 2 Mg/Ml Vial IVPUSH 04/25/24 13:54 1 mg STAT STA Administration Metoclopramide HCl 10 mg 04/25/24 13:54 04/25/24 14:07 Metoclopramide Hcl 10 Mg/2 Ml Vial IVPUSH 04/25/24 13:55 10 mg ONCE STA Administration Medical Decision Making Medical Decision Making [facility] Narrative: 54-year-old female history ofof MS, TBI, seizure, depression, anxiety, stroke with loss of peripheral vision at age 24 when she was who presents emergency department for evaluation of change in her vision that came on suddenly at 12:10. Patient describes the visual change as distorted vision is if she opened her eyes under water and dots in her ring in her periphery which are spin. She states she has had similar changed in the past but they have never lasted this long. She denied associated headache. The patient's vital signs were normal. Patient states that her vision is distorted but she can identify objects and read numbers. Patient's neurologic exam did reveal symmetric weakness but no focal changes. Differential diagnosis: ?Includes but is not limited to stroke, TIA, ocular migraine, giant cell arteritis, anxiety, electrolyte abnormalities, anemia Following evaluation was ordered: Stroke protocol, CBC, BMP, profile PT/INR, PTT, lipid profile, ethanol level, troponin, ESR, CRP, CT scan of the head without IV contrast, CT angiogram head and neck Patient was initially treated with the following: Normal saline x1 L, Toradol 15 mg IV, Reglan 10 mg IV, Benadryl 50 mg IV, Ativan 1 mg IV Course: 14:05 My interpretation patient's laboratory evaluation as follows: WBC normal 8200. H&H normal 14.7 and 41.3. Platelet count was normal 256,000. Stroke INR was normal at 1.0. Point of care glucose normal 91. CT scan of the brain did reveal chronic changes with marked encephalomalacia in the left posterior parietal occipital lobe and a small lacunar infarct in the right occipital lobe with patchy periventricular white matter changes. This was unchanged compared to CT scan done on 01/20/2021 16:18 CT angiogram of the head and neck was negative. My interpretation patient's laboratory evaluation is as follows: CBC and CMP were normal. Troponin was below detectable limits. ESR and CRP were normal. Patient does have elevated triglycerides, chloride and LDH but these are mildly elevated and not contributing to her presentation. Patient's symptoms have completely resolved. Patient was presentation is consistent with an ocular migraine I did discuss this with her. The patient was given prescriptions for Excedrin migraine, Benadryl and Reglan and instructions on taking these medications. She was given printed and verbal instructions and discharged home. Admission/Observation Consideration of admission/observation: Escalation of care including admission/observation considered Lab Data MDM Lab Attestation statement: I reviewed the patient's lab results. 04/25/24 13:56 04/25/24 13:56 Labs: Lab Results 04/25/24 04/25/24 04/25/24 Range/Units 13:20 13:34 13:56 WBC 8.2 (4.8-10.8) X10*3/uL RBC 4.29 (4.20-5.50) X10*6/uL Hgb 14.7 (12.0-16.0) g/dl Hct 41.3 (37.0-47.0) % MCV 96.3 (80.0-98.0) fL MCH 34.3 H (27.0-33.0) pg MCHC 35.6 H (31.0-35.0) g/dl RDW 11.8 (11.0-16.0) % Plt Count 256 (160-400) X10*3/uL MPV 9.7 (9.4-12.3) fL Immature Gran % (Auto) 0.4 (0.0-0.4) % Neut % (Auto) 48.5 (45-73) % Lymph % (Auto) 41.1 H (20-40) % [place] % (Auto) 7.3 (2-11) % Eos % (Auto) 1.8 (0-4) % Baso % (Auto) 0.9 (0-2) % Lymph # (Auto) 3.4 (1.2-4.9) X10*3/uL [place] # (Auto) 0.6 (0.1-1.2) X10*3/uL Eos # (Auto) 0.2 (0.0-0.4) X10*3/uL Baso # (Auto) 0.1 (0.0-0.2) X10*3/uL Abs Immat Gran (auto) 0.03 (0.00-0.03) X10*3/uL Absolute Neuts (auto) 4.0 (2.0-8.3) x10*3/uL Absolute Nucleated RBC 0.000 (0.0-0.012) X10*3/uL Nucleated RBC % (auto) 0.0 (0.0-0.2) /100WBC ESR 6 (0-20) MM/HR PT 11.2 (11.1-13.3) SEC Whole Blood PT 11.9 (11.1-13.5) sec INR 0.9 (0.9-1.1) Whole Blood INR 1.0 (0.9-1.1) APTT 31.1 (26.0-36.8) SEC Sodium 139 (135-145) mmol/L Potassium 4.5 (3.3-5.1) mmol/L Chloride 106 (96-108) mmol/L Carbon Dioxide 27 (22-29) mmol/L Anion Gap 11 L (12-20) BUN 11 (9-16) mg/dL Creatinine 0.82 (0.5-1.4) mg/dL Estim Creat Clear Calc 76.2 Estimated GFR > 60 POC Glucose 91 (60-115) mg/dL Random Glucose 89 (60-115) mg/dL Calcium 9.6 (8.4-10.2) mg/dL Troponin I High Sens < 2.7 (<3.5-17.0) ng/L C-Reactive Protein < 0.10 (< or = 0.50) mg/dL Triglycerides 153 H (<150) mg/dL Cholesterol 201 H (<200) mg/dL LDL Cholesterol, Calc 122 H (<100) mg/dL HDL Cholesterol 49 (>40) mg/dL Urine Color Urine Appearance Urine pH (5.0-9.0) Ur Specific Reed (1.005-1.025) Urine Protein (Neg-Trace) mg/dL Urine Glucose (UA) (Negative) mg/dL Urine Ketones (Negative) mg/dL Urine Blood (Negative) Urine Nitrite (Negative) Ur Leukocyte Esterase (Negative) Urine RBC (0-2) /HPF Urine WBC (0-5) /HPF Ur Squamous Epith Cells (0-2) /HPF Urine Bacteria (None Seen) Hyaline Casts (0-2) /LPF Urine Opiates Screen (Not Detect) Ur Buprenorphine Scrn (Not Detect) ng/mL Ur Oxycodone Screen (Not Detect) ng/mL Urine Methadone Screen (Not Detect) ng/mL Urine Fentanyl Screen (Not Detect) Ur Barbiturates Screen (Not Detect) Ur Phencyclidine Scrn (Not Detect) Ur Amphetamines Screen (Not Detect) U Benzodiazepines Scrn (Not Detect) Urine Cocaine Screen (Not Detect) U Marijuana (THC) Screen (Not Detect) Ethyl Alcohol < 10 mg/dL 04/25/24 Range/Units 14:13 WBC (4.8-10.8) X10*3/uL RBC (4.20-5.50) X10*6/uL Hgb (12.0-16.0) g/dl Hct (37.0-47.0) % MCV (80.0-98.0) fL MCH (27.0-33.0) pg MCHC (31.0-35.0) g/dl RDW (11.0-16.0) % Plt Count (160-400) X10*3/uL MPV (9.4-12.3) fL Immature Gran % (Auto) (0.0-0.4) % Neut % (Auto) (45-73) % Lymph % (Auto) (20-40) % [place] % (Auto) (2-11) % Eos % (Auto) (0-4) % Baso % (Auto) (0-2) % Lymph # (Auto) (1.2-4.9) X10*3/uL [place] # (Auto) (0.1-1.2) X10*3/uL Eos # (Auto) (0.0-0.4) X10*3/uL Baso # (Auto) (0.0-0.2) X10*3/uL Abs Immat Gran (auto) (0.00-0.03) X10*3/uL Absolute Neuts (auto) (2.0-8.3) x10*3/uL Absolute Nucleated RBC (0.0-0.012) X10*3/uL Nucleated RBC % (auto) (0.0-0.2) /100WBC ESR (0-20) MM/HR PT (11.1-13.3) SEC Whole Blood PT (11.1-13.5) sec INR (0.9-1.1) Whole Blood INR (0.9-1.1) APTT (26.0-36.8) SEC Sodium (135-145) mmol/L Potassium (3.3-5.1) mmol/L Chloride (96-108) mmol/L Carbon Dioxide (22-29) mmol/L Anion Gap (12-20) BUN (9-16) mg/dL Creatinine (0.5-1.4) mg/dL Estim Creat Clear Calc Estimated GFR POC Glucose (60-115) mg/dL Random Glucose (60-115) mg/dL Calcium (8.4-10.2) mg/dL Troponin I High Sens (<3.5-17.0) ng/L C-Reactive Protein (< or = 0.50) mg/dL Triglycerides (<150) mg/dL Cholesterol (<200) mg/dL LDL Cholesterol, Calc (<100) mg/dL HDL Cholesterol (>40) mg/dL Urine Color Yellow Urine Appearance Clear Urine pH 7.0 (5.0-9.0) Ur Specific Reed 1.025 (1.005-1.025) Urine Protein Negative (Neg-Trace) mg/dL Urine Glucose (UA) Negative (Negative) mg/dL Urine Ketones Negative (Negative) mg/dL Urine Blood Small (1+) H (Negative) Urine Nitrite Negative (Negative) Ur Leukocyte Esterase Trace H (Negative) Urine RBC 0-2 (0-2) /HPF Urine WBC 0-5 (0-5) /HPF Ur Squamous Epith Cells 0-2 (0-2) /HPF Urine Bacteria 1+ (None Seen) Hyaline Casts 0-2 (0-2) /LPF Urine Opiates Screen Not Detected (Not Detect) Ur Buprenorphine Scrn Not Detected (Not Detect) ng/mL Ur Oxycodone Screen Not Detected (Not Detect) ng/mL Urine Methadone Screen Not Detected (Not Detect) ng/mL Urine Fentanyl Screen Not Detected (Not Detect) Ur Barbiturates Screen Not Detected (Not Detect) Ur Phencyclidine Scrn Not Detected (Not Detect) Ur Amphetamines Screen Not Detected (Not Detect) U Benzodiazepines Scrn Not Detected (Not Detect) Urine Cocaine Screen Not Detected (Not Detect) U Marijuana (THC) Screen Not Detected (Not Detect) Ethyl Alcohol mg/dL Independent Interpretation I performed an independent interpretation of an: EKG and CT Scan Interpretation: My interpretation of the patient's CT scan of the brain is as follows: No acute bleed, patient does have significant left parietal, posterior parietal encephalomalacia consistent with her stroke at age 24 My independent interpretation of the patient's EKG done at 13:37 hours is as follows: Normal sinus rhythm with a rate of 80, normal LA interval, QRS duration QTC interval, no ST segment elevation, no ST segment depression, no PACs, no PVCs, this is a normal EKG Radiology Impression Discussion of test interpretation with radiology: I discussed test interpretation with the radiologist and I have reviewed the radiologist's reading. Radiologist Impression: CT head for stroke IMPRESSION: 1. No acute intracranial pathology. 2. Chronic changes of marked encephalomalacia in the left posterior parietal-occipital lobe and small lacunar infarct in the right occipital lobe. Patchy periventricular white matter changes 3. Large mucous retention cyst in the right maxillary sinus. This critical result was discussed with Wade Allison at 1:20 PM hours on 04/25/2024. It was ascertained that the content and urgency of the report was understood at the time of direct communication. Dictated By: Jarett Pak MD CT angiogram head and neck-I received a verbal report from the radiologist, no acute findings, dictated report is pending. Independent Historian Clinical information obtained from an independent historian. History obtained from or confirmed by: Spouse Prescription Management I considered prescription management with: Other (Migraine regimen) Chronic Conditions Patient?s care impacted by: Other (Stroke) NIH Stroke Scale Internal: Initial- Upon Arrival Level of Consciousness: Alert Level of Consciousness Questions: Answers both questions correctly Level of Consciousness Commands: Performs both tasks correctly Best Gaze: Normal Visual: No visual loss Facial Palsy: Normal Motor Arm (Right): No drift Motor Arm (Left): No drift Motor Leg (Right): No drift Motor Leg (Left): No drift Limb Ataxia: Absent Sensory: Normal Best Language: No aphasia Dysarthia: Normal Extinction and Inattention: No abnormality Score: 0 Critical Care Time Critical Care Time Critical Care Time: Yes Total Critical Care Time: 45 Attestation: Critical Care: The patient was critically ill with a high probability of imminent or life threatening deterioration. I spent greater than 30 minutes of discontinuous time evaluating the patient,delivering critical care at the bedside, discussing and evaluating pertinent data with consultants. Critical care time does not include time spent performing separately billable procedures or teaching. Total time spent performing critical care was 45 minutes. Discharge Plan Discharge Clinical Impression: Ocular migraine Patient Disposition: Home, Self-Care Instructions: Ocular Migraine (ED) Additional Instructions: Your blood work was unremarkable except for slight elevation in your lipid/cholesterol panel. You should talk to your doctor about getting a fasting lipid panel as an outpatient to further evaluate whether or not you need treatment for high cholesterol. Your symptoms are consistent with an eye migraine. This is also called an ocular migraine. I want you to take the following 3 medications together every 6 hours as needed for headache, nausea or vomiting. Reglan (metoclopramide) in 10 mg, 1 pill Benadry (diphenhydramine) l 25 mg, 2 pills Excedrin migraine (acetaminophen, aspirin, caffeine), 2 pills. After you take these medications, lie down in a dark quiet room and try to fall asleep. ?These medications will make you sleepy, do not drive or work after taking these medications. Follow-up with your doctor in 2 days. Please return to the emergency department if your symptoms get worse or if you develop any symptoms that are concerning to you. Benadryl (diphenhydramine) and Excedrin migraine (acetaminophen, aspirin, caffeine combined) [id number] medications, if your insurance does not cover these medications by the generic forms and this will be cheaper. Prescriptions: New diphenhydramine HCl 25 mg capsule 50 mg PO Q6H PRN (Reason: headache, nausea, vomiting) Qty: 20 0RF Excedrin Extra Strength 250-250-65 mg tablet 2 tab PO Q6H PRN (Reason: headache) Qty: 20 0RF metoclopramide HCl [Reglan] 10 mg tablet 10 mg PO Q6H PRN (Reason: nausea and vomiting) Qty: 14 0RF No Action cholecalciferol (vitamin D3) 50 mcg (2,000 unit) capsule 50 mcg PO DAILY Qty: 30 3RF melatonin 10 mg Tablet,Chewable 20 mg PO DAILY PRN (Reason: Sleep) levetiracetam 500 mg tablet 500 mg PO BEDTIME cefuroxime axetil 250 mg tablet 250 mg PO BID 7 Days Qty: 14 0RF levetiracetam [Keppra] 500 mg tablet 500 mg PO BID Qty: 60 0RF Multiple Vitamin, Womens Tablet 1 tab PO DAILY oxcarbazepine 600 mg tablet 600 mg PO BID 90 Days Qty: 180 1RF omeprazole 20 mg capsule,delayed release(DR/EC) 20 mg PO DAILY Qty: 90 1RF chlorhexidine gluconate 0.12 % mouthwash PO clindamycin HCl 150 mg capsule 150 mg PO TID ibuprofen 800 mg tablet 800 mg PO TID Interventions: ED Discharge Assessment Last Done: 04/25/24 16:59 Discharge Date/Time: 04/25/24 16:59 Print Language: R[place]
--- NOTE | 2024-04-25 13:08 | ECG_ITS ---
Test Reason : STROKE PROTOCOL Blood Pressure : / mmHG Vent. Rate : 080 BPM Atrial Rate : 080 BPM P-R Int : 128 ms QRS Dur : 074 ms QT Int : 396 ms P-R-T Axes : 006 054 053 degrees QTc Int : 456 ms Normal sinus rhythm Normal ECG When compared with ECG of 04-AUG-2023 11:09, No significant change was found Referred By: Alcides Glez Electronically Signed By:TRINA MURPHY
[2024-04-25 13:28] LABS: Glucose, Whole Blood 91 mg/dL (60-115)
[2024-04-25] MEDS: iohexoL 350 MG/ML 100 ML INFUS..BTL IV (13:30)
[2024-04-25 14:01] LABS: MANUAL DIFF FLAG NO
[2024-04-25 14:02] LABS: Basophils Absolute Auto 0.1 X10*3/uL (0.0-0.2); Basophils Percent Auto 0.9 % (0-2); Eosinophils Absolute Auto 0.2 X10*3/uL (0.0-0.4); Eosinophils Percent Auto 1.8 % (0-4); Hematocrit 41.3 % (37.0-47.0); Hemoglobin 14.7 g/dl (12.0-16.0); Imm Gran Abs Auto 0.03 X10*3/uL (0.00-0.03); Imm Gran Pct Auto 0.4 % (0.0-0.4); Lymphocytes Absolute Auto 3.4 X10*3/uL (1.2-4.9); Lymphocytes Percent Auto 41.1 % (20-40); Mean Corpuscular HGB Conc 35.6 g/dl (31.0-35.0); Mean Corpuscular Hemoglobin 34.3 pg (27.0-33.0); Mean Corpuscular Volume 96.3 fL (80.0-98.0); Mean Platelet Volume 9.7 fL (9.4-12.3); Monocytes Absolute Auto 0.6 X10*3/uL (0.1-1.2); Monocytes Percent Auto 7.3 % (2-11); Neutrophils Percent Auto 48.5 % (45-73); Platelet Count 256 X10*3/uL (160-400); Red Blood Count 4.29 X10*6/uL (4.20-5.50); Red Cell Distribution Width 11.8 % (11.0-16.0); White Blood Count 8.2 X10*3/uL (4.8-10.8)
[2024-04-25 14:03] LABS: Prothrombin Time Whole Bld POC 11.9 sec (11.1-13.5)
[2024-04-25] MEDS: 0.9 % Sodium Chloride 1,000 ML 999 ML IV (14:06)
[2024-04-25] MEDS: diphenhydrAMINE HCL 50 MG/ML VIAL IVPUSH (14:07)
[2024-04-25] MEDS: Metoclopramide HCl 10 MG/2 ML VIAL IVPUSH (14:07)
[2024-04-25] MEDS: LORazepam 2 MG/ML VIAL 1 MG IVPUSH (14:07)
[2024-04-25 14:09] LABS: INTERNATIONAL NORM RATIO 0.9 (0.9-1.1); Prothrombin Time 11.2 SEC (11.1-13.3)
[2024-04-25 14:12] LABS: Partial Thromboplastin Time 31.1 SEC (26.0-36.8)
[2024-04-25 14:15] LABS: Stroke Lab Use COMPLETE
[2024-04-25 14:20] LABS: Anion Gap 11 (12-20); Blood Urea Nitrogen 11 mg/dL (9-16); Carbon Dioxide 27 mmol/L (22-29); Chloride 106 mmol/L (96-108); Creatinine Clr Calc Pharmacy 76.2; Potassium 4.5 mmol/L (3.3-5.1); Sodium 139 mmol/L (135-145)
[2024-04-25 14:20] LABS: Appearance Urine Clear; Color Urine Yellow; Glucose Urine UA Negative (Negative); Leukocyte Esterase Urine Trace (Negative); Nitrite Urine Negative (Negative); Specific Gravity - Urine 1.025 (1.005-1.025); UMIC TRIGGER UACC YES; Urine Blood Small (1+) (Negative); Urine Ketones Negative (Negative); Urine Protein Negative (Neg-Trace)
[2024-04-25 14:21] LABS: C Reactive Protein < 0.10 mg/dL (< or = 0.50); Calcium 9.6 mg/dL (8.4-10.2); Cholesterol 201 mg/dL (<200); Estimated Glomerular Filt Rate > 60; Ethanol < 10 mg/dL; Glucose Random 89 mg/dL (60-115); HDL Cholesterol 49 mg/dL (>40); LDL Cholesterol Calculated 122 mg/dL (<100); Triglycerides 153 mg/dL (<150)
[2024-04-25 14:25] LABS: Troponin-I High Sensitivity < 2.7 ng/L (<3.5-17.0)
[2024-04-25 14:37] LABS: Amphetamine Screen Urine Not Detected (Not Detect); Bacteria Urine 1+ (None Seen); Barbiturates, Urine Not Detected (Not Detect); Benzodiazepines Screen Urine Not Detected (Not Detect); Buprenorphine Scr Not Detected (Not Detect); Cannabinoid Screen Urine Not Detected (Not Detect); Cocaine Screen Urine Not Detected (Not Detect); Fentanyl, urine Not Detected (Not Detect); Hyaline Casts Urine 0-2 /LPF (0-2); Methadone Screen, Urine Not Detected (Not Detect); Opiate Screen Urine Not Detected (Not Detect); Oxycodone Screen Urine Not Detected (Not Detect); Phencyclidine Screen Urine Not Detected (Not Detect); RBC Urine 0-2 /HPF (0-2); Squamous Epithelial Cell Urine 0-2 /HPF (0-2); WBC Urine 0-5 /HPF (0-5)
[2024-04-25 14:53] LABS: Erythrocyte Sedimentation Rate 6 MM/HR (0-20)
[2024-04-25 16:18] VITALS: BP 105/63; PULSE 80; RESP 19; TEMP 36.9; O2SAT 96
[2024-04-25 16:59] VITALS: BP 105/63; PULSE 80; RESP 19; TEMP 36.9; O2SAT 96
== END 2024-04-25 16:59 | disposition home or self-care (01) ==
PROVIDERS: Emergency Provider Emergency Medicine Emergency Medical Services; PCP Physician Assistant
DX: G43.809 Other migraine, not intractable, without status migrainosus (principal); H53.143 Visual discomfort, bilateral; R56.9 Unspecified convulsions; R42 Dizziness and giddiness; F17.210 Nicotine dependence, cigarettes, uncomplicated; Z79.899 Other long term (current) drug therapy; Z51.81 Encounter for therapeutic drug level monitoring
CPT/HCPCS: 36415; 70450; 70496; 70498; 80048; 80061; 80307; 81001; 82947; 84484; 85025; 85610; 85652; 85730; 86140; 93005; 99285; J1200; J2060; J2765; Q9967

== ENCOUNTER 2024-05-16 15:35 | Emergency (ER) | payer OTHER, SELFPAY ==
--- NOTE | ~2024-05-16 | CT_ITS ---
EXAMINATION: CT FACIAL BONES WITH CONTRAST CLINICAL INFORMATION: Right-sided facial swelling COMPARISON: None available. TECHNIQUE: Axial images obtained through the facial bones after intravenous injection of 85 mL Omnipaque 350. Coronal and sagittal reformatted images are performed with CT scan. This CT examination was performed using dose optimization techniques as appropriate, variously including the following: *Automated exposure control *Adjustment of mA and/or kV according to patient size (this includes techniques or standardized protocols for targeted exams where dose is matched to indication/reason for exam; i.e. extremities or head) *Use of iterative reconstruction technique DLP: 251 mGy-cm FINDINGS: There is poor dentition. Multiple cavities and erosion teeth bilaterally. In the right maxilla there is periapical lucency involving the right maxillary first and second bicuspid. There is lucency in the periapical bone involving all of the right maxillary molars. In the left mandible periapical lucency and loss of bone present involving all of the molars. This is consistent with multiple periapical abscesses. There is edema in the right cheek adjacent to the maxilla without evidence of periosteal abscess. There is a polyp or retention cyst filling most of the right maxillary sinus. The right maxillary sinus ostium is occluded. Small retention cyst or polyp at the left sphenoid sinus inferiorly. The paranasal sinuses are otherwise normally aerated. Visualized portions of the mastoid air cells and middle ear cavities are normally aerated Orbits and retrobulbar structures normal. CT/CT facial bones w IV con IMPRESSION: 1. Poor dentition with multiple cavities and erosions of the teeth. Multiple periapical abscesses. 2. Edema in the right cheek adjacent to the maxilla without evidence of periosteal abscess. 3. Polyp or retention cyst filling most of the right maxillary sinus. The right maxillary sinus ostium is occluded. Electronically signed by: Dameon Gibson MD 05/16/2024 08:43 PM EDT RP
[2024-05-16 15:46] VITALS: BP 140/90; PULSE 97; RESP 16; TEMP 37.2; O2SAT 99; BMI 25.7
--- NOTE | 2024-05-16 15:48 | ED_ITS ---
HPI - General Adult General Chief complaint: Dental/Oral Stated complaint: right cheek swollen,tooth pain,seizure 05/14 Time Seen by Provider: 05/16/24 17:56 Source: patient Limitations: no limitations History of Present Illness ED Provider: Diane Cherry PA-C HPI narrative: 53-year-old female with a history of seizure disorder, anxiety and depression presents with dental pain x4 days. Patient states she previously broke 2 of her upper right molars years ago. Over the past 4 days she has developed discomfort within the area. Patient states she woke this morning with right facial swelling. Denies purulent drainage from either tooth, fall taste in her mouth, no fevers. Patient is yet to see her dentist. Related Data Home Medications ?Medication ?Instructions ?Recorded ?Confirmed yxjdyydugugc-[id number]-afsh-minerals 1 tab PO DAILY 03/17/21 11/28/23 (Multiple Vitamin, Womens tablet) melatonin 10 mg chewable tablet 20 mg PO DAILY PRN Sleep 06/05/23 11/28/23 levetiracetam 500 mg tablet 500 mg PO BEDTIME 08/04/23 11/28/23 chlorhexidine gluconate 0.12 % PO 10/24/23 11/28/23 mouthwash clindamycin HCl 150 mg capsule 150 mg PO TID 10/24/23 11/28/23 ibuprofen 800 mg tablet 800 mg PO TID 10/24/23 11/28/23 Previous Rx's ?Medication ?Instructions ?Recorded omeprazole 20 mg capsule,delayed 20 mg PO DAILY #90 caps 12/13/22 release oxcarbazepine 600 mg tablet 600 mg PO BID 90 days #180 tabs 12/13/22 cefuroxime axetil 250 mg tablet 250 mg PO BID 7 days #14 tabs 08/05/23 levetiracetam 500 mg tablet 500 mg PO BID #60 tabs 08/05/23 (Keppra) cholecalciferol (vitamin D3) 50 50 mcg PO DAILY #30 caps 10/11/23 mcg (2,000 unit) capsule fnruydc-xqkkegzikwnaa-nfcpxfom 250 2 tab PO Q6H PRN headache #20 tabs 04/25/24 mg-250 mg-65 mg tablet (Excedrin Extra Strength) diphenhydramine HCl 25 mg capsule 50 mg (2 x 25 mg) PO Q6H PRN 04/25/24 headache, nausea, vomiting #20 caps metoclopramide HCl 10 mg tablet 10 mg PO Q6H PRN nausea and 04/25/24 (Reglan) vomiting #14 tabs clindamycin HCl 150 mg capsule 450 mg (3 x 150 mg) PO TID #90 caps 05/16/24 oxycodone 5 mg tablet 5 mg PO Q6H PRN pain #16 tabs 05/16/24 Allergies Allergy/AdvReac Type Severity Reaction Status Date / Time aspirin [ASPIRIN] AdvReac Severe GI BLEEDING Verified 05/16/24 15:47 hydromorphone [From DILAUDID] AdvReac Severe VIOLENT Verified 05/16/24 15:47 NSAIDS (Non-Steroidal AdvReac Severe GI BLEEDING Verified 05/16/24 15:47 Anti-Inflamma [NSAIDS (NON-STEROIDAL ANTI-INFLAMMA] sertraline AdvReac Intermediate Itch Verified 05/16/24 15:47 oxycodone AdvReac Nausea and Verified 05/16/24 15:47 Vomiting penicillin Allergy Unknown Hives Uncoded 05/16/24 15:47 Review of Systems 2 Review of Systems: Yes all other systems are reviewed and are negative Constitutional: Constitutional: Denies fever(s) Eyes: Eyes: Denies eye pain ENT: Reports facial pain, Reports mouth pain and Denies sore throat Respiratory: Respiratory: Denies cough Gastrointestinal: Gastrointestinal: Denies nausea PMFSH Past Medical History Attestation statement: The following information was validated with the patient. Medical History Left breast lump Primary ovarian failure Disorder of bone density and structure, unspecified Amenorrhea Vitamin D deficiency Nausea Obesity Stroke Seizures Surgical History History of biopsy Hx of ingrown nail History of lumpectomy of left breast (02/02/22) History of wisdom tooth extraction History of cholecystectomy History of hysterectomy for indication other than malignancy History of tubal ligation H/O brain surgery Family History Family History Mother Leukemia Skin cancer Father History of cancer of unknown primary site Paternal Uncle Bone cancer Paternal Grandfather Lung cancer Other Mental health disorder Substance use disorder Social History Social History Household Members: Significant Other Housing: Apartment Alcohol intake: never Patient Tobacco Use Status: Current everyday Tobacco user Tobacco use type: Cigarette Smoked in Last 30 Days: No e-Cigarette/Vaping Use: Never Used Second Hand Smoke Exposure: Yes Use of substances other than those prescribed or required for medical reasons: No Advance Directives: No Advance Directives Information Provided: No Patient : No service: No Current occupational status: employed Current occupation: [employer]PER[employer]OR Cognitive needs: Yes Hearing needs: No Vision needs: Yes (glasses) Physical Exam ED Vital Signs: Vital Signs - 24 hr 05/16/24 20:14 05/16/24 22:25 Temperature 98.8 F 98.8 F Pulse Rate 78 78 Respiratory Rate 16 16 Blood Pressure 127/79 109/73 Pulse Oximetry 98 98 Oxygen Delivery Method Room Air Room Air BMI result Body Mass Index 25.7 Const Other: Alert, well in appearance, swelling and erythema noted over right cheek, inferior to the orbit. Orientation/consciousness: patient oriented x3 HENMT Other: Both teeth 1. And 2, are absent/fractured at the level of the gum tooth margin, the area is subtly erythematous, without active purulent drainage, no swelling along the buccal mucosa Eyes Other: Extraocular eye movements intact, no pain with movement Resp Other: Nonlabored respiration Cardio Other: Normal peripheral perfusion Skin Other: Warm dry no rash Neuro General: patient oriented x3, no focal motor deficits and CN's II-XI intact bilaterally Psych Other: Calm cooperative Course Course Course Narrative: This is a Rapid Medical Examination (RME) performed by Shannan Ward PA-C in triage. Full HPI, ROS, assessment and treatment plan per primary provider in the Main ED. 53 yo female with history of MS, TBI, seizures, depression, anxiety, hx stroke with loss of peripheral vision at age 24 when she was who presents to the ER for evaluation of right sided facial swelling, redness that she noticed when she woke up today. Has had tooth infection for the last 4 days and has not been on abx. No dental care. On exam she has right sided facial swelling, erythema. upper right molars are broken but not tender. Plan: labs, CT facial bones Medications Administered Discontinued Medications Generic Name Dose Route Start Last Admin Trade Name Freq PRN Reason Stop Dose Admin Clindamycin HCl 450 mg 05/16/24 18:11 05/16/24 18:30 Clindamycin Hcl 150 Mg Capsule PO 05/16/24 18:12 450 mg ONCE ONE Administration Iohexol 85 ml 05/16/24 18:51 05/16/24 18:52 Iohexol 350 Mg/Ml 100 Ml Infus..Btl IV 05/16/24 18:52 85 ml ONCE ONE Administration Ketorolac Tromethamine 15 mg 05/16/24 18:11 05/16/24 18:30 Ketorolac Tromethamine 15 Mg/Ml Vial IVPUSH 05/16/24 18:12 15 mg ONCE ONE Administration Oxycodone HCl 5 mg 05/16/24 18:11 05/16/24 18:30 Oxycodone Hcl Immed Release 5 Mg Tablet PO 05/16/24 18:12 5 mg ONCE ONE Administration Medical Decision Making Medical Decision Making [facility] Narrative: 53-year-old female with a history of seizure disorder, anxiety and depression presents with dental pain x4 days. Patient states she previously broke 2 of her upper right molars years ago. Over the past 4 days she has developed discomfort within the area. Patient states she woke this morning with right facial swelling. Denies purulent drainage from either tooth, fall taste in her mouth, no fevers. Patient is yet to see her dentist. No relevant chronic issues History: Per patient I have considered the following differential diagnoses: Osteomyelitis, dental abscess, preseptal cellulitis, dental caries Plan: Patient is assessment began in [facility], screening labs including a CT of the max face was obtained. We will start the patient on clindamycin and give oxycodone for her pain. I am less concerned about his preseptal cellulitis given she has no pain with extraocular eye movements, however we will wait for the CT. She has been advised that she needs to follow up with her dentist tomorrow. She verbalizes understanding. I have independently reviewed the following tests: Labs: Leukocytosis, not anemic, no electrolyte abnormality CT max face:FINDINGS: There is poor dentition. Multiple cavities and erosion teeth bilaterally. In the right maxilla there is periapical lucency involving the right maxillary first and second bicuspid. There is lucency in the periapical bone involving all of the right maxillary molars. In the left mandible periapical lucency and loss of bone present involving all of the molars. This is consistent with multiple periapical abscesses. There is edema in the right cheek adjacent to the maxilla without evidence of periosteal abscess. There is a polyp or retention cyst filling most of the right maxillary sinus. The right maxillary sinus ostium is occluded. Small retention cyst or polyp at the left sphenoid sinus inferiorly. The paranasal sinuses are otherwise normally aerated. Visualized portions of the mastoid air cells and middle ear cavities are normally aerated Orbits and retrobulbar structures normal. CT/CT facial bones w IV con IMPRESSION: 1. Poor dentition with multiple cavities and erosions of the teeth. Multiple periapical abscesses. 2. Edema in the right cheek adjacent to the maxilla without evidence of periosteal abscess. 3. Polyp or retention cyst filling most of the right maxillary sinus. The right maxillary sinus ostium is occluded. Electronically signed by: Dameon Gibson MD 05/16/2024 08:43 PM EDT RP Lab Data 05/16/24 16:18 05/16/24 16:18 Labs: Lab Results 05/16/24 05/16/24 Range/Units 16:18 19:47 WBC 13.6 H (4.8-10.8) X10*3/uL RBC 4.26 (4.20-5.50) X10*6/uL Hgb 14.7 (12.0-16.0) g/dl Hct 41.6 (37.0-47.0) % MCV 97.7 (80.0-98.0) fL MCH 34.5 H (27.0-33.0) pg MCHC 35.3 H (31.0-35.0) g/dl RDW 11.9 (11.0-16.0) % Plt Count 252 (160-400) X10*3/uL MPV 10.2 (9.4-12.3) fL Immature Gran % (Auto) 0.4 (0.0-0.4) % Neut % (Auto) 66.9 (45-73) % Lymph % (Auto) 24.6 (20-40) % [place]zel % (Auto) 6.7 (2-11) % Eos % (Auto) 1.0 (0-4) % Baso % (Auto) 0.4 (0-2) % Lymph # (Auto) 3.3 (1.2-4.9) X10*3/uL [place] # (Auto) 0.9 (0.1-1.2) X10*3/uL Eos # (Auto) 0.1 (0.0-0.4) X10*3/uL Baso # (Auto) 0.1 (0.0-0.2) X10*3/uL Abs Immat Gran (auto) 0.06 H (0.00-0.03) X10*3/uL Absolute Neuts (auto) 9.1 H (2.0-8.3) x10*3/uL Absolute Nucleated RBC 0.000 (0.0-0.012) X10*3/uL Nucleated RBC % (auto) 0.0 (0.0-0.2) /100WBC ESR 14 (0-20) MM/HR Sodium 141 (135-145) mmol/L Potassium 4.5 (3.3-5.1) mmol/L Chloride 107 (96-108) mmol/L Carbon Dioxide 24 (22-29) mmol/L Anion Gap 15 (12-20) BUN 10 (9-16) mg/dL Creatinine 0.86 (0.5-1.4) mg/dL Estim Creat Clear Calc 69.7 Estimated GFR > 60 Random Glucose 88 (60-115) mg/dL Calcium 9.8 (8.4-10.2) mg/dL Magnesium 2.3 (1.6-2.6) mg/dL Total Bilirubin 0.2 (0.0-1.0) mg/dL Direct Bilirubin < 0.2 (0.0-0.5) mg/dL AST 12 (5-31) U/L ALT 9 (0-31) U/L Alkaline Phosphatase 68 (39-117) U/L C-Reactive Protein 3.97 H (< or = 0.50) mg/dL Total Protein 7.2 (6.5-8.0) g/dL Albumin 4.3 (3.5-5.0) g/dL Urine Color Yellow Urine Appearance Clear Urine pH 5.5 (5.0-9.0) Ur Specific [place] >= 1.030 H (1.005-1.025) Urine Protein Negative (Neg-Trace) mg/dL Urine Glucose (UA) Negative (Negative) mg/dL Urine Ketones Negative (Negative) mg/dL Urine Blood Moderate (2+) H (Negative) Urine Nitrite Negative (Negative) Ur Leukocyte Esterase Small (1+) H (Negative) Urine RBC 3-5 H (0-2) /HPF Urine WBC 11-20 (0-5) /HPF Ur Squamous Epith Cells 3-5 (0-2) /HPF Urine Bacteria 4+ (None Seen) Hyaline Casts 0-2 (0-2) /LPF Urine Test NEGATIVE (NEGATIVE) Discharge Plan Discharge Clinical Impression: Abscess, dental Patient Disposition: Home, Self-Care Instructions: Dental Abscess (ED), Root Canal (DC) Additional Instructions: You were found to have multiple dental abscesses. In addition, you were incidentally found to have either a cyst or a polyp in the right maxillary sinus. You need to follow up with your primary care provider for ENT consult. You need to call your dentist tomorrow to schedule an appointment. Take the clindamycin as directed, use the oxycodone as needed for pain. You will likely develop diarrhea from taking the antibiotic, you should start taking a probiotic and eat yogurt daily to help prevent symptoms. Prescriptions: New clindamycin HCl 150 mg capsule 450 mg PO TID Qty: 90 0RF oxycodone 5 mg tablet 5 mg PO Q6H PRN (Reason: pain) Qty: 16 0RF Rx Instructions: Partial Fill upon patient request. No Action cholecalciferol (vitamin D3) 50 mcg (2,000 unit) capsule 50 mcg PO DAILY Qty: 30 3RF diphenhydramine HCl 25 mg capsule 50 mg PO Q6H PRN (Reason: headache, nausea, vomiting) Qty: 20 0RF Excedrin Extra Strength 250-250-65 mg tablet 2 tab PO Q6H PRN (Reason: headache) Qty: 20 0RF metoclopramide HCl [Reglan] 10 mg tablet 10 mg PO Q6H PRN (Reason: nausea and vomiting) Qty: 14 0RF melatonin 10 mg Tablet,Chewable 20 mg PO DAILY PRN (Reason: Sleep) levetiracetam 500 mg tablet 500 mg PO BEDTIME cefuroxime axetil 250 mg tablet 250 mg PO BID 7 Days Qty: 14 0RF levetiracetam [Keppra] 500 mg tablet 500 mg PO BID Qty: 60 0RF Multiple Vitamin, Womens Tablet 1 tab PO DAILY oxcarbazepine 600 mg tablet 600 mg PO BID 90 Days Qty: 180 1RF omeprazole 20 mg capsule,delayed release(DR/EC) 20 mg PO DAILY Qty: 90 1RF chlorhexidine gluconate 0.12 % mouthwash PO clindamycin HCl 150 mg capsule 150 mg PO TID ibuprofen 800 mg tablet 800 mg PO TID Interventions: ED Discharge Assessment Last Done: 05/16/24 22:25 Discharge Date/Time: 05/16/24 22:26 Print Language: [place]
[2024-05-16 16:21] LABS: MANUAL DIFF FLAG NO
[2024-05-16 16:29] LABS: Basophils Absolute Auto 0.1 X10*3/uL (0.0-0.2); Basophils Percent Auto 0.4 % (0-2); Eosinophils Absolute Auto 0.1 X10*3/uL (0.0-0.4); Hematocrit 41.6 % (37.0-47.0); Hemoglobin 14.7 g/dl (12.0-16.0); Imm Gran Abs Auto 0.06 X10*3/uL (0.00-0.03); Imm Gran Pct Auto 0.4 % (0.0-0.4); Lymphocytes Absolute Auto 3.3 X10*3/uL (1.2-4.9); Lymphocytes Percent Auto 24.6 % (20-40); Mean Corpuscular HGB Conc 35.3 g/dl (31.0-35.0); Mean Corpuscular Hemoglobin 34.5 pg (27.0-33.0); Mean Corpuscular Volume 97.7 fL (80.0-98.0); Mean Platelet Volume 10.2 fL (9.4-12.3); Monocytes Absolute Auto 0.9 X10*3/uL (0.1-1.2); Monocytes Percent Auto 6.7 % (2-11); Neutrophils Absolute Auto 9.1 x10*3/uL (2.0-8.3); Neutrophils Percent Auto 66.9 % (45-73); Platelet Count 252 X10*3/uL (160-400); Red Blood Count 4.26 X10*6/uL (4.20-5.50); Red Cell Distribution Width 11.9 % (11.0-16.0); White Blood Count 13.6 X10*3/uL (4.8-10.8)
[2024-05-16 16:37] LABS: Alanine Aminotransferase 9 U/L (0-31); Albumin Level 4.3 g/dL (3.5-5.0); Alkaline Phosphatase 68 U/L (39-117); Anion Gap 15 (12-20); Aspartate Amino Transferase 12 U/L (5-31); Bilirubin Direct < 0.2 mg/dL (0.0-0.5); Bilirubin Total 0.2 mg/dL (0.0-1.0); Blood Urea Nitrogen 10 mg/dL (9-16); C Reactive Protein 3.97 mg/dL (< or = 0.50); Calcium 9.8 mg/dL (8.4-10.2); Carbon Dioxide 24 mmol/L (22-29); Chloride 107 mmol/L (96-108); Creatinine Clr Calc Pharmacy 69.7; Estimated Glomerular Filt Rate > 60; Glucose Random 88 mg/dL (60-115); Magnesium 2.3 mg/dL (1.6-2.6); Potassium 4.5 mmol/L (3.3-5.1); Sodium 141 mmol/L (135-145); Total Protein 7.2 g/dL (6.5-8.0)
[2024-05-16 17:43] LABS: Erythrocyte Sedimentation Rate 14 MM/HR (0-20)
[2024-05-16 18:00] VITALS: BP 114/71; PULSE 86; RESP 16; TEMP 37.2; O2SAT 97
[2024-05-16] MEDS: Ketorolac Tromethamine 15 MG/ML VIAL IVPUSH (18:30)
[2024-05-16] MEDS: oxyCODONE HCl Immed Release 5 MG TABLET PO (18:30)
[2024-05-16] MEDS: Clindamycin HCL 150 MG CAPSULE 450 MG PO (18:30)
[2024-05-16] MEDS: iohexoL 350 MG/ML 100 ML INFUS..BTL 85 ML IV (18:52)
--- NOTE | 2024-05-16 19:00 | PC.NURSE ---
report received from Cindy Craig RN, assume care of pt at this time
[2024-05-16 19:57] LABS: Appearance Urine Clear; Color Urine Yellow; Glucose Urine UA Negative (Negative); Leukocyte Esterase Urine Small (1+) (Negative); Nitrite Urine Negative (Negative); PH 5.5 (5.0-9.0); Specific Gravity - Urine >= 1.030 (1.005-1.025); UMIC TRIGGER UACC YES; Urine Blood Moderate (2+) (Negative); Urine Ketones Negative (Negative); Urine Protein Negative (Neg-Trace)
[2024-05-16 20:00] LABS: UPreg QC Valid YES; Urine Pregnancy NEGATIVE (NEGATIVE)
[2024-05-16 20:14] VITALS: BP 127/79; PULSE 78; RESP 16; TEMP 37.1; O2SAT 98
[2024-05-16 20:24] LABS: Bacteria Urine 4+ (None Seen); Hyaline Casts Urine 0-2 /LPF (0-2); UACC Culture Trigger YES
[2024-05-16 22:25] VITALS: BP 109/73; PULSE 78; RESP 16; TEMP 37.1; O2SAT 98
== END 2024-05-16 22:26 | disposition home or self-care (01) ==
PROVIDERS: Physician Assistant; Physician Assistant Medical; Emergency Provider Emergency Medicine; PCP Physician Assistant
DX: K04.7 Periapical abscess without sinus (principal); K08.89 Other specified disorders of teeth and supporting structures; F17.210 Nicotine dependence, cigarettes, uncomplicated; Z79.899 Other long term (current) drug therapy
CPT/HCPCS: 36415; 70487; 80048; 80076; 81001; 81003; 81025; 83735; 85025; 85652; 86140; 87086; 87088; 87186; 96374; 99284; J1885; Q9967

== ENCOUNTER 2024-07-03 15:17 | Outpatient (AMB) | payer OTHER, SELFPAY ==
[2024-07-03 15:42] VITALS: BP 116/82; PULSE 98; O2SAT 98; BMI 28.7
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
== END 2024-07-03 16:21 | disposition home or self-care (01) ==
PROVIDERS: PCP Physician Assistant; Visit Provider Physician Assistant
DX: Z00.00 Encounter for general adult medical examination without abnormal findings (principal); Z12.11 Encounter for screening for malignant neoplasm of colon; R56.9 Unspecified convulsions; F17.200 Nicotine dependence, unspecified, uncomplicated; F41.1 Generalized anxiety disorder; E78.9 Disorder of lipoprotein metabolism, unspecified

== ENCOUNTER → 2024-07-03 15:17 | Outpatient (BNVA) | payer OTHER, SELFPAY | PROVIDERS: PCP Physician Assistant; Visit Provider Physician Assistant | DX: Z00.00 Encounter for general adult medical examination without abnormal findings (principal); R56.9 Unspecified convulsions; F41.1 Generalized anxiety disorder; E78.9 Disorder of lipoprotein metabolism, unspecified; F17.210 Nicotine dependence, cigarettes, uncomplicated; Z23 Encounter for immunization | CPT/HCPCS: 90471; 90656; 99396 ==

== ENCOUNTER 2024-08-17 12:48 | Emergency (ER) | payer OTHER, SELFPAY ==
--- NOTE | ~2024-08-17 | CT_ITS ---
EXAMINATION: CT HEAD WITHOUT CONTRAST CLINICAL INFORMATION: Numbness COMPARISON: Head CT on 04/25/2024 TECHNIQUE: Contiguous axial imaging was performed from the skull base to vertex without intravenous administration of contrast. This CT examination was performed using dose optimization techniques as appropriate, variously including the following: *Automated exposure control *Adjustment of mA and/or kV according to patient size (this includes techniques or standardized protocols for targeted exams where dose is matched to indication/reason for exam; i.e. extremities or head) *Use of iterative reconstruction technique DLP: 661 mGy-cm RESULTS: There is no evidence of acute intracranial hemorrhage, acute large vessel infarct, midline shift or mass effect. The servin-white differentiation is preserved. Encephalomalacia in the left parieto-occipital lobe with ex vacuo dilatation of the posterior horn of the left lateral ventricle. Lacunar infarct in the right occipital lobe. There is no evidence of hydrocephalus. There are no extraaxial collections. Osseous structures are intact. Paranasal sinuses and mastoid air cells are well aerated. CT/CT head/brain wo IV con IMPRESSION: 1. No acute intracranial pathology. 2. Encephalomalacia in the left parieto-occipital lobe. Electronically signed by: Ana Menendez MD 08/17/2024 02:45 PM EST
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
[2024-08-17 13:01] VITALS: BP 146/91; PULSE 86; RESP 19; TEMP 36.6; O2SAT 98; BMI 25.7
--- NOTE | 2024-08-17 13:04 | ECG_ITS ---
Test Reason : numbness Blood Pressure : / mmHG Vent. Rate : 090 BPM Atrial Rate : 090 BPM P-R Int : 128 ms QRS Dur : 082 ms QT Int : 372 ms P-R-T Axes : 014 040 047 degrees QTc Int : 455 ms Normal sinus rhythm Normal ECG When compared with ECG of 25-APR-2024 13:37, No significant change was found Referred By: Taina Galvez Electronically Signed By:Ramses Brooks
[2024-08-17 13:31] LABS: MANUAL DIFF FLAG NO
[2024-08-17 13:32] LABS: Basophils Absolute Auto 0.1 X10*3/uL (0.0-0.2); Basophils Percent Auto 0.7 % (0-2); Eosinophils Absolute Auto 0.2 X10*3/uL (0.0-0.4); Eosinophils Percent Auto 1.8 % (0-4); Hematocrit 42.1 % (37.0-47.0); Hemoglobin 14.8 g/dl (12.0-16.0); Imm Gran Abs Auto 0.02 X10*3/uL (0.00-0.03); Imm Gran Pct Auto 0.2 % (0.0-0.4); Lymphocytes Absolute Auto 3.3 X10*3/uL (1.2-4.9); Lymphocytes Percent Auto 36.8 % (20-40); Mean Corpuscular HGB Conc 35.2 g/dl (31.0-35.0); Mean Corpuscular Hemoglobin 34.1 pg (27.0-33.0); Monocytes Absolute Auto 0.6 X10*3/uL (0.1-1.2); Monocytes Percent Auto 6.6 % (2-11); Neutrophils Absolute Auto 4.8 x10*3/uL (2.0-8.3); Neutrophils Percent Auto 53.9 % (45-73); Platelet Count 293 X10*3/uL (160-400); Red Blood Count 4.34 X10*6/uL (4.20-5.50); Red Cell Distribution Width 11.8 % (11.0-16.0); White Blood Count 8.8 X10*3/uL (4.8-10.8)
[2024-08-17 13:58] LABS: Alanine Aminotransferase 44 U/L (0-31); Albumin Level 4.4 g/dL (3.5-5.0); Alkaline Phosphatase 72 U/L (39-117); Anion Gap 12 (12-20); Aspartate Amino Transferase 28 U/L (5-31); Bilirubin Direct < 0.2 mg/dL (0.0-0.5); Bilirubin Total 0.2 mg/dL (0.0-1.0); Blood Urea Nitrogen 11 mg/dL (9-16); Calcium 9.8 mg/dL (8.4-10.2); Carbon Dioxide 26 mmol/L (22-29); Chloride 107 mmol/L (96-108); Creatinine Clr Calc Pharmacy 73.1; Estimated Glomerular Filt Rate > 60; Glucose Random 82 mg/dL (60-115); Magnesium 2.3 mg/dL (1.6-2.6); Potassium 4.2 mmol/L (3.3-5.1); Sodium 141 mmol/L (135-145); Total Protein 7.4 g/dL (6.5-8.0)
[2024-08-17 14:17] LABS: HCG Quantitative < 2 mIU/mL; Troponin-I High Sensitivity < 2.7 ng/L (<3.5-17.0)
[2024-08-17 21:46] VITALS: BP 134/80; PULSE 80; RESP 22; TEMP 37; O2SAT 98
[2024-08-17 22:10] VITALS: BP 126/60; PULSE 72; RESP 18; TEMP 37; O2SAT 98
== END 2024-08-17 22:10 | disposition home or self-care (01) ==
PROVIDERS: Nurse Practitioner Family; Emergency Provider Emergency Medicine; PCP Physician Assistant
DX: R20.0 Anesthesia of skin (principal); R20.2 Paresthesia of skin; G35 Multiple sclerosis; G93.89 Other specified disorders of brain; Z87.820 Personal history of traumatic brain injury; R56.9 Unspecified convulsions; E55.9 Vitamin D deficiency, unspecified; F17.210 Nicotine dependence, cigarettes, uncomplicated; Z79.899 Other long term (current) drug therapy
CPT/HCPCS: 36415; 70450; 80048; 80076; 82550; 83735; 84484; 84702; 85025; 93005; 99284

== ENCOUNTER → 2024-08-17 13:04 | Outpatient (BNV) | payer OTHER, SELFPAY | PROVIDERS: Emergency Provider Emergency Medicine; PCP Physician Assistant; Visit Provider Internal Medicine Cardiovascular Disease | DX: R20.2 Paresthesia of skin (principal) | CPT/HCPCS: 93010 ==

== ENCOUNTER 2025-01-16 16:14 | Outpatient (AMB) | payer OTHER, SELFPAY ==
--- NOTE | 2025-01-16 16:16 | A.OFFPC_ITS ---
Vital Signs 01/16/25 16:17 Height 5 ft 3 in Weight 164 lb 4 oz BMI 29.1 BP 120/70 Blood Pressure Location Lt brachial Position Sitting Pulse 70 Pulse Source Pulse Oximeter Temp 97.1 F Temp Source Temporal Artery Scan Pulse Oximetry (%) 95 Oxygen Delivery Method Room Air Intake Visit Reasons: Anxiety symptom Allergies aspirin [ASPIRIN] Adverse Reaction (Severe, Verified 01/16/25 16:29) GI BLEEDING hydromorphone [From DILAUDID] Adverse Reaction (Severe, Verified 01/16/25 16:29) VIOLENT NSAIDS (Non-Steroidal Anti-Inflamma [NSAIDS (NON-STEROIDAL ANTI-INFLAMMA] Adverse Reaction (Severe, Verified 01/16/25 16:29) GI BLEEDING sertraline Adverse Reaction (Intermediate, Verified 01/16/25 16:29) Itch penicillin Allergy (Unknown, Uncoded 01/16/25 16:29) Hives Medication List - Last Reconciled 01/16/25 by Ayush Cope PA-C ajlnpcg-[id number]-yposhknd 250-250-65 mg (Excedrin Extra Strength) 2 tabs PO Q6H PRN cholecalciferol (vitamin D3) 50 mcg PO DAILY diphenhydramine HCl 25 mg PO Q6H 10 days ibuprofen 800 mg PO TID melatonin 20 mg PO DAILY PRN pwajwbuuoefa-If-obkn-minerals (Multiple Vitamin, Womens tablet) 1 tab PO DAILY omeprazole 20 mg PO DAILY oxcarbazepine 600 mg PO BID 90 days varenicline tartrate 0.5 mg PO; Take 0.5 mg qd x 3 days, then 0.5 mg b.i.d. x4 days 7 days varenicline tartrate 1 mg PO BID 28 days Tobacco use date assessed: 10/24/23 Dental Screening Dental Screen Date: 10/24/23 HPI Anxiety symptom HPI Details The patient is a 54-year-old female presenting with mental health concerns, specifically anxiety, depression, and possible seizure activity. Her symptoms correlate with recent familial bereavement and associated stressors. The patient recently lost her mother, which has exacerbated her anxiety and depressive symptoms. She experiences frequent nocturnal seizures, which she attributes to increased stress and emotional turmoil. Additionally, there is an impact on her vision, which she relates to her mental health status. The patient's brother has also experienced significant health challenges, compounding her stress. The ongoing family dynamics require her to be the primary support, adding to her emotional and physical burden. She has not been engaged in formal mental health therapy previously but expresses the need for external support. Current sleep difficulties persist despite the use of qfoc-qpw-aokpzmy medications. She continues to manage these with Tylenol PM and high-dose melatonin, acknowledging the potential health risks these pose. [facility] Medical History Left breast lump Primary ovarian failure Disorder of bone density and structure, unspecified Amenorrhea Vitamin D deficiency Nausea Obesity Stroke Seizures Surgical History History of biopsy Hx of ingrown nail History of lumpectomy of left breast (02/02/22) History of wisdom tooth extraction History of cholecystectomy History of hysterectomy for indication other than malignancy History of tubal ligation H/O brain surgery Family History Mother Leukemia Skin cancer Father History of cancer of unknown primary site Lung cancer Paternal Uncle Bone cancer Paternal Grandfather Lung cancer Other Mental health disorder Substance use disorder Social History Household Members: Significant Other Housing: Apartment Alcohol intake: never Patient Tobacco Use Status: Current everyday Tobacco user Tobacco use type: Cigarette Cigarettes Per Day: 5 e-Cigarette/Vaping Use: Never Used Second Hand Smoke Exposure: Yes service: No Current occupational status: employed 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 1. Little interest or pleasure in doing things: nearly every day 2. Feeling down, depressed, or hopeless: nearly every day 3. Trouble falling or staying asleep, or sleeping too much: nearly every day 4. Feeling tired or having little energy: nearly every day 5. Poor appetite or overeating: nearly every day 6. Feeling bad about yourself - or that you are a failure or have let yourself or your family down: nearly every day 7. Trouble concentrating on things, such as reading the newspaper or watching television: nearly every day 8. Moving or speaking so slowly that other people could have noticed. Or the opposite - being so fidgety or restless that you have been moving around a lot more than usual: nearly every day 9. Thoughts that you would be better off or of hurting yourself in some way: nearly every day Total score: 27 [id number] - PHQ-9 Billing: Yes Source: Developed by Drs. Reza Blandon, Brielle Ureña, Edilberto Erickson and colleagues, with an educational hemalatha from [employer]. Thrive Questionnaire Date Thrive assessed: 10/24/23 I am a: Patient What is your living situation today?: I have a steady place to live Within the past 12 months, did the food you bought not last and you didn't have the money to get more?: Never true Within the past 12 months, did you worry whether your food would run out before you got money to buy more?: Never true Do you have trouble paying for medicines?: No Do you have trouble getting transportation to medical appointments?: No Do you have trouble paying your heating and electricity bill?: No Do you have trouble taking care of your child, family member or friend?: No Do you have trouble with day-to-day activities such as bathing, preparing meals, shopping, managing finances, etc.?: No Are you currently unemployed and looking for a job?: No Are you interested in more education?: No Please select the resources that you would like help with: None Currently or been in a relationship where the following occur: No concerns reported THRIVE Score: 0 AUDIT C Alcohol Use Questionnaire (AUDIT-C) 1. How often do you have a drink containing alcohol?: Never 3. How often do you have six or more drinks on one occasion?: Never Total Score: 0 PINA-7 AMB Questionnaire PINA-7 Date PINA - 7 assessed: 01/16/25 Feeling nervous, anxious, or on edge: 3 = Nearly every day Not being able to stop or control worryin = Nearly every day Worrying too much about different things: 3 = Nearly every day Trouble relaxin = Nearly every day Being so restless that it is hard to sit still: 3 = Nearly every day Becoming easily annoyed or irritable: 3 = Nearly every day Feeling afraid as if something awful might happen: 3 = Nearly every day Total PINA-7 score (0-4 normal; 5-9 mild; 10-14 moderate; 15-21 severe): 21 Source: Developed by Drs. Reza Blandon, Brielle Ureña, Edilberto Erickson and colleagues, with an educational hemalatha from [employer]. PINA-7 Assessment Billing PINA-7 Assessment Tool: PINA-7 Assessment 88284 Review of Systems Const Denies headache(s) Eyes Denies loss of vision ENT Denies vertigo, Denies dizziness, Denies headache(s) and Denies sore throat Card Denies chest pain, Denies leg edema and Denies lightheadedness Resp Denies cough, Denies hemoptysis and Denies wheezing GI Denies abdominal pain, Denies melena, Denies constipation, Denies diarrhea and Denies vomiting Denies urinary frequency, Denies dysuria and Denies urinary urgency Musc Denies arthralgias, Denies joint swelling, Denies numbness and Denies tingling Neuro Denies Abnormal speech present, Denies behavioral changes, Denies vertigo, Denies dizziness, Denies headache(s), Denies loss of vision, Denies memory loss, Denies numbness and Denies tingling Psych Denies anxiety, Denies behavioral changes, Denies depression, Denies memory loss and Denies panic attacks Steve/Lymph Denies easy bleeding and Denies easy bruising Aller/Immun Denies wheezing Physical exam (Primary Care) Vital Signs: Last Vital Signs Temp 97.1 F 01/16/25 16:17 Pulse 70 01/16/25 16:17 BP 120/70 01/16/25 16:17 Pulse Ox 95 01/16/25 16:17 Oxygen Delivery Method Room Air 01/16/25 16:17 BMI result Body Mass Index 29.1 Tobacco/Smoking Status: Tobacco use Status Tobacco use date assessed 10/24/23 01/16/25 16:23 Patient Tobacco Use Status Current everyday Tobacco 01/16/25 16:23 Tobacco use type Cigarette 01/16/25 16:23 e-Cigarette/Vaping Use Never Used 01/16/25 16:23 PHQ-9: PHQ-9 Score PHQ-9: Total score 27 01/16/25 16:32 Thrive Assessment: Date of Thrive Assessment Date Thrive assessed 10/24/23 01/16/25 16:23 Currently or been in a relationship where the following occur: No concerns reported Const General: healthy appearing, no acute distress, alert and awake Nutritional Appearance: well nourished Orientation/consciousness: oriented to person, oriented to place and oriented to time HENMT Ears: TM's normal bilaterally General nose exam: Normal nasal mucous membranes and turbinates present Eyes Conjunctivae: conjunctivae normal Sclerae: sclerae normal Pupils: Equal, round and reactive pupils present Neck Neck: Yes no lymphadenopathy and Yes no JVD Thyroid: Thyroid normal Carotids: no bruits Resp Effort & Inspection: normal respiratory effort and not tachypneic Auscultation: no crackles, no rales, no rhonchi and no wheezes Cardio Rate: regular rate Rhythm: regular rhythm Heart sounds: no murmurs and normal S1 and S2 GI Palpation (GI): Soft to palpation, nontender, no hepatomegaly and no splenomegaly Auscultation: normal bowel sounds Skin General skin exam: no rashes or lesions noted and dry skin Neuro General: oriented to person, oriented to place and oriented to time Cranial nerves: Yes Equal, round and reactive pupils present Speech: No Abnormal speech present Gait exam (Neuro): Normal gait present Motor exam (neuro): no tremor noted Extrem Right upper extremity: full ROM Left upper extremity: full ROM Right lower extremity: full ROM; no edema Left lower extremity: full ROM; no edema Psych Mental Status: mental status grossly normal Speech and movement: Normal speech and movement present Affect: normal affect Attitude: cooperative Thought process: Normal thought process present Coding Level of Care Code Est Pt Level 3 (75394) Diagnoses MDD (major depressive disorder), recurrent episode, moderate F33.1 PINA (generalized anxiety disorder) F41.1 Additional Codes PINA-7 Assessment Billing - PINA-7 Assessment Tool: PINA-7 Assessment 03043 ([id number]) PHQ-9 - 70031 - PHQ-9 Billing: Yes ([id number]) Assessment & Plan Assessment & Plan (1) MDD (major depressive disorder), recurrent episode, moderate: Code(s): F33.1 - Major depressive disorder, recurrent, moderate Category: Medical Plan: The management plan includes prescribing clonidine to help mitigate anxiety symptoms. A referral to a mental health therapist is made to explore counseling as a complementary approach. Will also try with psychiatrist for evaluation and possible treatment with alternative mental health medications as patient continues to suffer with depression anxiety symptoms for many years now particularly when her daughter from drug overdose years ago. (2) PINA (generalized anxiety disorder): Code(s): F41.1 - Generalized anxiety disorder Category: Medical Plan: As above Orders: Referrals Counseling Referral F41.1 - Generalized anxiety disorder Psychiatry Outpatient Consultation Service F33.1 - Major depressive disorder, recurrent, moderate Medications: New clonidine HCl 0.1 mg PO BID 60 tabs 0RF 30 days F33.1 - Major depressive disorder, recurrent, moderate, F41.1 - Generalized anxiety disorder
[2025-01-16 16:17] VITALS: BP 120/70; PULSE 70; TEMP 36.2; O2SAT 95; BMI 29.1
== END 2025-01-16 16:54 | disposition home or self-care (01) ==
LOC: HO.HMCH 16:15
PROVIDERS: PCP Physician Assistant; Visit Provider Physician Assistant
DX: F33.1 Major depressive disorder, recurrent, moderate (principal); F41.1 Generalized anxiety disorder

== ENCOUNTER → 2025-01-16 16:14 | Outpatient (BNVA) | payer OTHER, SELFPAY | PROVIDERS: PCP Physician Assistant; Visit Provider Physician Assistant | DX: F33.1 Major depressive disorder, recurrent, moderate (principal); F41.1 Generalized anxiety disorder | CPT/HCPCS: 96127; 99212 ==

== ENCOUNTER → 2025-01-24 13:09 | Outpatient (BNVA) | payer OTHER, SELFPAY | PROVIDERS: PCP Physician Assistant ==

== ENCOUNTER 2025-01-28 11:21 | Outpatient (AMB) | payer OTHER, SELFPAY ==
--- NOTE | 2025-01-28 11:26 | A.OFFPC_ITS ---
Vital Signs 01/28/25 11:38 01/28/25 11:39 01/28/25 11:39 01/28/25 11:40 Height 5 ft 3 in Weight 166 lb 4 oz BMI 29.4 BP 116/76 144/84 H 140/88 H 138/78 Blood Pressure Location Lt brachial Rt brachial Lt brachial Lt brachial Position Sitting Supine Standing Sitting Pulse 77 85 Pulse Source Pulse Oximeter Pulse Oximeter Temp 97.3 F Temp Source Temporal Artery Scan Pulse Oximetry (%) 99 98 Oxygen Delivery Method Room Air Room Air Intake Visit Reasons: headaches x 2 weeks Allergies aspirin [ASPIRIN] Adverse Reaction (Severe, Verified 01/28/25 11:42) GI BLEEDING hydromorphone [From DILAUDID] Adverse Reaction (Severe, Verified 01/28/25 11:42) VIOLENT NSAIDS (Non-Steroidal Anti-Inflamma [NSAIDS (NON-STEROIDAL ANTI-INFLAMMA] Adverse Reaction (Severe, Verified 01/28/25 11:42) GI BLEEDING sertraline Adverse Reaction (Intermediate, Verified 01/28/25 11:42) Itch penicillin Allergy (Unknown, Uncoded 01/28/25 11:42) Hives Medication List - Last Reconciled 01/28/25 by Ayush Cope PA-C [id number]-[id number]-[id number] 250-250-65 mg (Excedrin Extra Strength) 2 tabs PO Q6H PRN cholecalciferol (vitamin D3) 50 mcg PO DAILY clonidine HCl 0.1 mg PO BID 30 days diphenhydramine HCl 25 mg PO Q6H 10 days ibuprofen 800 mg PO TID melatonin 20 mg PO DAILY PRN zutygciaxvtk-Xu-txdw-minerals (Multiple Vitamin, Womens tablet) 1 tab PO DAILY omeprazole 20 mg PO DAILY oxcarbazepine 600 mg PO BID 90 days varenicline tartrate 0.5 mg PO; Take 0.5 mg qd x 3 days, then 0.5 mg b.i.d. x4 days 7 days varenicline tartrate 1 mg PO BID 28 days Tobacco use date assessed: 10/24/23 Dental Screening Dental Screen Date: 10/24/23 HPI headaches x 2 weeks HPI Details The patient is a 54-year-old female presenting with persistent headache s and ongoing seizure episodes. For the past three weeks, she has experienced one-sided headaches focused at the frontal region with a vibrating sensation towards the back of the head. She describes frequent nighttime seizure episodes during this same period, despite treatment with 600 mg of oxycarbazepine taken twice a day. The patient has a background of depressive symptoms, attributed in part to significant stress and previous significant losses, including her daughter and mother. She has been on clonidine but feels no emotional improvement. She describes a challenging home situation, assisting in raising an autistic grandchild, which adds emotional and physical strain. She also describes episodes of dizziness that change with posture, possibly pointing towards orthostatic hypotension. Additionally, there is an indication of vertigo, which may contribute to her dizziness symptoms. ON LICENSE OF [facility] Medical History Left breast lump Primary ovarian failure Disorder of bone density and structure, unspecified Amenorrhea Vitamin D deficiency Nausea Obesity Stroke Seizures Surgical History History of biopsy Hx of ingrown nail History of lumpectomy of left breast (02/02/22) History of wisdom tooth extraction History of cholecystectomy History of hysterectomy for indication other than malignancy History of tubal ligation H/O brain surgery Family History Mother Leukemia Skin cancer Father History of cancer of unknown primary site Lung cancer Paternal Uncle Bone cancer Paternal Grandfather Lung cancer Other Mental health disorder Substance use disorder Social History Household Members: Significant Other Housing: Apartment Alcohol intake: never Patient Tobacco Use Status: Current everyday Tobacco user Tobacco use type: Cigarette Cigarettes Per Day: 5 e-Cigarette/Vaping Use: Never Used Second Hand Smoke Exposure: Yes service: No Current occupational status: employed 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 1. Little interest or pleasure in doing things: nearly every day 2. Feeling down, depressed, or hopeless: nearly every day 3. Trouble falling or staying asleep, or sleeping too much: nearly every day 4. Feeling tired or having little energy: nearly every day 5. Poor appetite or overeating: nearly every day 6. Feeling bad about yourself - or that you are a failure or have let yourself or your family down: nearly every day 7. Trouble concentrating on things, such as reading the newspaper or watching television: nearly every day 8. Moving or speaking so slowly that other people could have noticed. Or the opposite - being so fidgety or restless that you have been moving around a lot more than usual: nearly every day 9. Thoughts that you would be better off or of hurting yourself in some way: nearly every day Total score: 27 Source: Developed by Drs. Reza Blandon, Brielle Ureña, Edilberto Erickson and colleagues, with an educational hemalatha from [employer]. Thrive Questionnaire Date Thrive assessed: 10/24/23 I am a: Patient What is your living situation today?: I choose not to answer this question Within the past 12 months, did the food you bought not last and you didn't have the money to get more?: I choose not to answer this question Within the past 12 months, did you worry whether your food would run out before you got money to buy more?: I choose not to answer this question Do you have trouble paying for medicines?: I choose not to answer this question Do you have trouble getting transportation to medical appointments?: I choose not to answer this question Do you have trouble paying your heating and electricity bill?: I choose not to answer this question Do you have trouble taking care of your child, family member or friend?: I choose not to answer this question Do you have trouble with day-to-day activities such as bathing, preparing meals, shopping, managing finances, etc.?: I choose not to answer this question Are you currently unemployed and looking for a job?: I choose not to answer this question Are you interested in more education?: I choose not to answer this question Please select the resources that you would like help with: None Currently or been in a relationship where the following occur: No concerns reported THRIVE Score: 0 AUDIT C Alcohol Use Questionnaire (AUDIT-C) 1. How often do you have a drink containing alcohol?: Never Total Score: 0 PINA-7 AMB Questionnaire PINA-7 Date PINA - 7 assessed: 01/16/25 Feeling nervous, anxious, or on edge: 3 = Nearly every day Not being able to stop or control worryin = Nearly every day Worrying too much about different things: 3 = Nearly every day Trouble relaxin = Nearly every day Being so restless that it is hard to sit still: 3 = Nearly every day Becoming easily annoyed or irritable: 3 = Nearly every day Feeling afraid as if something awful might happen: 3 = Nearly every day Total PINA-7 score (0-4 normal; 5-9 mild; 10-14 moderate; 15-21 severe): 21 Source: Developed by Drs. Reza Blandon, Brielle Ureña, Edilberto Erickson and colleagues, with an educational hemalatha from [employer]. Review of Systems Const Reports headache(s) Eyes Denies loss of vision ENT Denies vertigo, Reports dizziness, Reports headache(s) and Denies sore throat Card Denies chest pain, Denies leg edema and Denies lightheadedness Resp Denies cough, Denies hemoptysis and Denies wheezing GI Denies abdominal pain, Denies melena, Denies constipation, Denies diarrhea and Denies vomiting Denies urinary frequency, Denies dysuria and Denies urinary urgency Musc Denies arthralgias, Denies joint swelling, Denies numbness and Denies tingling Neuro Denies Abnormal speech present, Denies behavioral changes, Denies vertigo, Reports dizziness, Reports headache(s), Denies loss of vision, Denies memory loss, Denies numbness and Denies tingling Psych Denies anxiety, Denies behavioral changes, Denies depression, Denies memory loss and Denies panic attacks Steve/Lymph Denies easy bleeding and Denies easy bruising Aller/Immun Denies wheezing Physical exam (Primary Care) Vital Signs: Last Vital Signs Temp 97.3 F 01/28/25 11:38 Pulse 85 01/28/25 11:39 BP 138/78 01/28/25 11:40 Pulse Ox 98 01/28/25 11:39 Oxygen Delivery Method Room Air 01/28/25 11:39 BMI result Body Mass Index 29.4 Tobacco/Smoking Status: Tobacco use Status Tobacco use date assessed 10/24/23 01/28/25 11:26 Patient Tobacco Use Status Current everyday Tobacco 01/28/25 11:26 Tobacco use type Cigarette 01/28/25 11:26 e-Cigarette/Vaping Use Never Used 01/28/25 11:26 PHQ-9: PHQ-9 Score PHQ-9: Total score 27 01/28/25 11:44 Thrive Assessment: Date of Thrive Assessment Date Thrive assessed 10/24/23 01/28/25 11:26 Currently or been in a relationship where the following occur: No concerns reported Const General: healthy appearing, no acute distress, alert and awake Nutritional Appearance: well nourished Orientation/consciousness: oriented to person, oriented to place and oriented to time HENMT Ears: TM's normal bilaterally General nose exam: Normal nasal mucous membranes and turbinates present Eyes Conjunctivae: conjunctivae normal Sclerae: sclerae normal Pupils: Equal, round and reactive pupils present Neck Neck: Yes no lymphadenopathy and Yes no JVD Thyroid: Thyroid normal Carotids: no bruits Resp Effort & Inspection: normal respiratory effort and not tachypneic Auscultation: no crackles, no rales, no rhonchi and no wheezes Cardio Rate: regular rate Rhythm: regular rhythm Heart sounds: no murmurs and normal S1 and S2 GI Palpation (GI): Soft to palpation, nontender, no hepatomegaly and no splenomegaly Auscultation: normal bowel sounds Skin General skin exam: no rashes or lesions noted and dry skin Neuro General: oriented to person, oriented to place and oriented to time Cranial nerves: Yes Equal, round and reactive pupils present Speech: No Abnormal speech present Gait exam (Neuro): Normal gait present Motor exam (neuro): no tremor noted Extrem Right upper extremity: full ROM Left upper extremity: full ROM Right lower extremity: full ROM; no edema Left lower extremity: full ROM; no edema Psych Mental Status: mental status grossly normal Speech and movement: Normal speech and movement present Affect: normal affect Attitude: cooperative Thought process: Normal thought process present Coding Level of Care Code Est Pt Level 4 (61325) Diagnoses Seizures R56.9 Frequent headaches R51.9 MDD (major depressive disorder), recurrent episode, moderate F33.1 Assessment & Plan Assessment & Plan (1) Seizures: Code(s): R56.9 - Unspecified convulsions Category: Medical Plan: Evaluate and modify seizure management strategy by consulting with a new neurologist. Currently on oxcarbazepine 600 b.i.d. and still having reported breakthrough seizures. Will try to get a 2nd opinion from Neurology to give recommendations on new antiepileptic medication. (2) Frequent headaches: Code(s): R51.9 - Headache, unspecified Category: Medical Plan: As-needed sumatriptan, up to nine doses a month, to manage migraines (3) MDD (major depressive disorder), recurrent episode, moderate: Code(s): F33.1 - Major depressive disorder, recurrent, moderate Category: Medical Plan: Introduction of buspirone for anxiety symptoms; discontinuation of clonidine; ongoing psychiatric support. As per HPI patient seems to be having fluctuating blood pressures which could be secondary to the clonidine dose Orders: Referrals Neurology Referral R56.9 - Unspecified convulsions Medications: New buspirone 5 mg PO BID 60 tabs 0RF 30 days F41.1 - Generalized anxiety disorder sumatriptan succinate take 1 tab at onset of headache; if no relief may repeat 1 tab after at least 2 hrs; max = 4 tabs/24 hr PO 9 tabs 0RF 30 days R51.9 - Headache, unspecified On Hold clonidine HCl Hold Comment: Doctor's Order 0.1 mg PO BID 30 days 60 tabs 0RF F33.1 - Major depressive disorder, recurrent, moderate, F41.1 - Generalized anxiety disorder
[2025-01-28 11:38] VITALS: BP 116/76; PULSE 77; TEMP 36.3; O2SAT 99; BMI 29.4
[2025-01-28 11:39] VITALS: BP 140/88; BP 144/84; PULSE 85; O2SAT 98
[2025-01-28 11:40] VITALS: BP 138/78
== END 2025-01-28 12:06 | disposition home or self-care (01) ==
LOC: HO.HMCH 11:22
PROVIDERS: PCP Physician Assistant; Visit Provider Physician Assistant
DX: R56.9 Unspecified convulsions (principal); R51.9 Headache, unspecified; F33.1 Major depressive disorder, recurrent, moderate

== ENCOUNTER → 2025-01-28 11:21 | Outpatient (BNVA) | payer OTHER, SELFPAY | PROVIDERS: PCP Physician Assistant; Visit Provider Physician Assistant | DX: F33.1 Major depressive disorder, recurrent, moderate (principal); F41.1 Generalized anxiety disorder; R51.9 Headache, unspecified; R56.9 Unspecified convulsions; R42 Dizziness and giddiness; Z63.4 Disappearance and death of family member; Z79.899 Other long term (current) drug therapy | CPT/HCPCS: 96127; 99212 ==

== ENCOUNTER 2025-04-03 14:28 | Outpatient (REF) | payer OTHER, SELFPAY ==
--- NOTE | ~2025-04-03 | XR_ITS ---
EXAMINATION: XR TOES, LEFT CLINICAL INFORMATION: S96.912A - Strain of unspecified muscle and tendon at ankle and foot lev... COMPARISON: None available. TECHNIQUE: AP left foot and two-view left toes FINDINGS: Oblique lucency through the distal phalanx of the fourth digit is probably related to overlap and prominent trabeculations rather than a fracture. No other suspicious areas are identified. XR/XR toe LT min 2V IMPRESSION: Lucency through the distal phalanx of the fourth digit on the oblique view only is probably related to artifact rather than a fracture. Correlate clinically. Electronically signed by: Jose Starr MD 04/03/2025 03:15 PM EDT RP
== END 2025-04-03 14:29 | disposition home or self-care (01) ==
LOC: HO.HMGCX 14:28
PROVIDERS: PCP Physician Assistant; Visit Provider Physician Assistant Medical
DX: S93.505A Unspecified sprain of left lesser toe(s), initial encounter (principal); W20.8XXA Other cause of strike by thrown, projected or falling object, initial encounter
CPT/HCPCS: 73660; 99212

== ENCOUNTER 2025-04-03 14:28 | Outpatient (AMB) | payer OTHER, SELFPAY ==
[2025-04-03 14:35] VITALS: BP 114/62; PULSE 81; TEMP 36.7; O2SAT 98; BMI 29.2
--- NOTE | 2025-04-03 14:35 | AM.OFFWIN_ITS ---
Intake Vital Signs 04/03/25 14:35 Height 5 ft 3 in Weight 165 lb BMI 29.2 BP 114/62 Blood Pressure Location Lt brachial Position Sitting Pulse 81 Pulse Source Pulse Oximeter Temp 98.0 F Temp Source Oral Pulse Oximetry (%) 98 Oxygen Delivery Method Room Air Intake Visit Reasons: EP-lt foot 4th toe swollen Intake Note: pt presents with LT 4th toe swelling, bruising and sore after dropping her cell phone on it Patient Tobacco Use Status: Current everyday Tobacco user Allergies aspirin (ASPIRIN) Adverse Reaction (Severe, Verified 04/03/25 14:41) GI BLEEDING hydromorphone (From DILAUDID) Adverse Reaction (Severe, Verified 04/03/25 14:41) VIOLENT NSAIDS (Non-Steroidal Anti-Inflamma (NSAIDS (NON-STEROIDAL ANTI-INFLAMMA) Adverse Reaction (Severe, Verified 04/03/25 14:41) GI BLEEDING sertraline Adverse Reaction (Intermediate, Verified 04/03/25 14:41) Itch penicillin Allergy (Unknown, Uncoded 01/28/25 11:42) Hives Do you need a note to return to daycare/school/sports/work: No HPI HPI Comments History of Present Illness Details History of Present Illness - The patient is a 54-year-old female pr esenting with pain and swelling in the left 4th toe following trauma from a dropped cell phone. - The incident occurred when the patient accidentally dropped her cell phone on her left foot, specifically impacting the area near the pinky toe. - The patient reports significant pain l ocalized to the pinky toe, with the ability to move all toes despite discomfort. - Swelling and heat are noted in the lef t foot, with no numbness or tingling reported. - The patient has been managing the pain while caring for her grandchildren, indicating a desire to maintain mobility. - Hurts to put her shoe on and weight be ar. - She denies numbness, tingling, foot pa in, ankle pain, or calf pain. Physical Exam General: Cooperative, healthy appearing, comfortable, no acute distress and well developed Respiratory: Normal respiratory effort and able to speak in complete sentences. Clear to auscultation bilaterally Cardiovascular: Regular rate and rhythm. Normal S1 and S2 Skin: Swelling and heat noted on the left foot, no rashes or lesions noted Neuro: Sensation is intact on the left foot and digits. Extremities: Erythema to the 4th left digit with swelling. No deformity noted. Patient was informed and verbally consented to the use of an ambient scribe for clinic note documentation during this visit. [facility] Medical History Left breast lump Primary ovarian failure Disorder of bone density and structure, unspecified Amenorrhea Vitamin D deficiency Nausea Obesity Stroke Seizures Surgical History History of biopsy Hx of ingrown nail History of lumpectomy of left breast (02/02/22) History of wisdom tooth extraction History of cholecystectomy History of hysterectomy for indication other than malignancy History of tubal ligation H/O brain surgery Family History Mother Leukemia Skin cancer Father History of cancer of unknown primary site Lung cancer Paternal Uncle Bone cancer Paternal Grandfather Lung cancer Other Mental health disorder Substance use disorder Social History Household Members: Significant Other Housing: Apartment Alcohol intake: never Patient Tobacco Use Status: Current everyday Tobacco user Tobacco use type: Cigarette Cigarettes Per Day: 5 e-Cigarette/Vaping Use: Never Used Second Hand Smoke Exposure: Yes service: No Current occupational status: employed 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 Cognitive needs: Yes Hearing needs: No Vision needs: Yes (glasses) Review of Systems Const All systems reviewed & are unremarkable except as noted in HPI and below Physical Exam Vital Signs: Last Vital Signs Temp 98.0 F 04/03/25 14:35 Pulse 81 04/03/25 14:35 BP 114/62 04/03/25 14:35 Pulse Ox 98 04/03/25 14:35 Oxygen Delivery Method Room Air 04/03/25 14:35 BMI result Body Mass Index 29.2 Assessment & Plan Assessment & Plan (1) Sprain of fourth toe, left: Code(s): S93.505A - Unspecified sprain of left lesser toe(s), initial encounter Qualifiers: Encounter type: initial encounter Qualified Code(s): S93.505A - Unspecified sprain of left lesser toe(s), initial encounter Plan Most likely strain vs fracture vs contusion Plan - An x-ray of the left foot will be performed to assess for possible fracture. - The patient will be provided with a protective shoe to reduce pain and facilitate mobility. - rest, ice, and elevation - tylenol or motrin as needed for pain - will call her with the results - can refer her to ortho if needed Orders: Orders XR toe LT min 2V Today S96.912A - Strain of unspecified muscle and tendon at ankle and foot level, left foot, initial encounter Coding Level of Care Code Est Pt Level 4 (53811) Diagnoses Sprain of fourth toe of left foot, initial encounter S93.505A Encounter type: initial encounter
== END 2025-04-03 15:54 | disposition home or self-care (01) ==
PROVIDERS: PCP Physician Assistant; Visit Provider Physician Assistant Medical
DX: S93.505A Unspecified sprain of left lesser toe(s), initial encounter (principal)

== ENCOUNTER → 2025-04-03 15:00 | Outpatient (BNV) | payer OTHER, SELFPAY | PROVIDERS: PCP Physician Assistant; Visit Provider Radiology Diagnostic Radiology | DX: S96.912A Strain of unspecified muscle and tendon at ankle and foot level, left foot, initial encounter (principal) | CPT/HCPCS: 73660 ==

== ENCOUNTER 2025-09-02 14:38 | Outpatient (AMB) | payer OTHER, SELFPAY ==
--- NOTE | 2025-09-02 15:09 | A.OFFPC_ITS ---
Vital Signs 09/02/25 15:10 Height 5 ft 3 in Weight 170 lb 4 oz BMI 30.2 BP 140/60 H Blood Pressure Location Lt brachial Position Sitting Pulse 99 Pulse Source Pulse Oximeter Temp 97.3 F Temp Source Temporal Artery Scan Pulse Oximetry (%) 98 Oxygen Delivery Method Room Air Intake Visit Reasons: sore throat Intake Note: Patient is here to follow up on Sore throat, rib pain, coughing for three days, right ear soreness, Fever last night 100.1, no chills. No testing for covid Water Pumping Station Engineer Required: No Slat Basket Maker Helper Machine: Not Required per policy Accompanied by: Self / Same As Patient Allergies aspirin (ASPIRIN) Adverse Reaction (Severe, Verified 09/02/25 15:10) GI BLEEDING hydromorphone (From DILAUDID) Adverse Reaction (Severe, Verified 09/02/25 15:10) VIOLENT NSAIDS (Non-Steroidal Anti-Inflamma (NSAIDS (NON-STEROIDAL ANTI-INFLAMMA) Adverse Reaction (Severe, Verified 09/02/25 15:10) GI BLEEDING sertraline Adverse Reaction (Intermediate, Verified 09/02/25 15:10) Itch penicillin Allergy (Unknown, Uncoded 09/02/25 15:10) Hives Medication List - Last Reconciled 09/02/25 by Aarti Arnold PA-C agklqvz-gxgsaqwkabqpw-hxmxoxqz 250-250-65 mg (Excedrin Extra Strength) 2 tabs PO Q6H PRN buspirone 5 mg PO BID 30 days cholecalciferol (vitamin D3) 50 mcg PO DAILY clonidine HCl 0.1 mg PO BID 30 days Held on 01/28/25. Instructions: Doctor's Order melatonin 20 mg PO DAILY PRN ulnrcauenthq-Xi-ychw-minerals (Multiple Vitamin, Womens tablet) 1 tab PO DAILY omeprazole 20 mg PO DAILY oxcarbazepine 600 mg PO BID 90 days sumatriptan succinate take 1 tab at onset of headache; if no relief may repeat 1 tab after at least 2 hrs; max = 4 tabs/24 hr PO 30 days Tobacco use date assessed: 09/02/25 Dental Screening Dental Screen Date: 09/02/25 Did you have a dental visit in the last 12 months?: No Did you have a dental problem in the last 6 months where you did not have access to dental care?: No Was dental information given to patient?: No HPI sore throat HPI Details 54 year old female with past medical his tory of PINA, MDD, obesity, seizures, tobacco use last seen 03/2025 by PA coming in for acute problem. Presenting with a severe sore throat and cough. Her symptoms began around and have been worsening over the last three days, starting with a cou gh. She describes the sore throat as a burning sensation, feeling as if she is swallowing razors, with associated pain on swallowing. She reports a cough for about three days, which is non-productive, and associated chest pain in her lower ribs that she likens to being kicked by a horse. Associated symptoms include headaches, right ear pain, body aches attributed to coughing, and a fever of 100.1?F the previous night. ON LICENSE OF [facility] Medical History Left breast lump Primary ovarian failure Disorder of bone density and structure, unspecified Amenorrhea Vitamin D deficiency Nausea Obesity Stroke Seizures Surgical History History of biopsy Hx of ingrown nail History of lumpectomy of left breast (02/02/22) History of wisdom tooth extraction History of cholecystectomy History of hysterectomy for indication other than malignancy History of tubal ligation H/O brain surgery Family History Mother Leukemia Skin cancer Father History of cancer of unknown primary site Lung cancer Paternal Uncle Bone cancer Paternal Grandfather Lung cancer Other Mental health disorder Substance use disorder Social History Household Members: Significant Other Housing: Apartment Alcohol intake: never Patient Tobacco Use Status: Current everyday Tobacco user Tobacco use type: Cigarette Cigarette Packs Per Day: 0.5 Cigarettes Per Day: 4 e-Cigarette/Vaping Use: Never Used Second Hand Smoke Exposure: Yes service: No Current occupational status: employed 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 Cognitive needs: Yes Hearing needs: No Vision needs: Yes (glasses) Questionnaire Thrive Questionnaire Date Thrive assessed: 10/24/23 I am a: Patient What is your living situation today?: I choose not to answer this question Within the past 12 months, did the food you bought not last and you didn't have the money to get more?: I choose not to answer this question Within the past 12 months, did you worry whether your food would run out before you got money to buy more?: I choose not to answer this question Do you have trouble paying for medicines?: I choose not to answer this question Do you have trouble getting transportation to medical appointments?: I choose not to answer this question Do you have trouble paying your heating and electricity bill?: I choose not to answer this question Do you have trouble taking care of your child, family member or friend?: I choose not to answer this question Do you have trouble with day-to-day activities such as bathing, preparing meals, shopping, managing finances, etc.?: I choose not to answer this question Are you currently unemployed and looking for a job?: I choose not to answer this question Are you interested in more education?: I choose not to answer this question Currently or been in a relationship where the following occur: No concerns reported THRIVE Score: 0 PINA-7 AMB Questionnaire PINA-7 Date PINA - 7 assessed: 01/16/25 Source: Developed by Drs. Reza Blandon, Brielle Ureña, Edilberto Erickson and colleagues, with an educational hemalatha from [employer]. Review of Systems Const Reports body aches, Reports chills, Reports fever(s), Reports headache(s) and Denies poor appetite Eyes Reports no additional complaints ENT Denies dysphagia, Denies dizziness, Reports headache(s) and Reports odynophagia Card Denies chest pain, Denies edema, Denies irregular heart rhythm, Denies lig htheadedness and Denies dyspnea Resp Reports cough, Denies hemoptysis, Denies excessive phlegm production and Denies dyspnea GI Denies dysphagia, Denies diarrhea, Denies nausea, Reports odynophagia and Denies vomiting Reports no additional complaints Musc Reports no additional complaints and Denies abnormal gait Skin/Breast Reports system reviewed and no additional complaints, except as documented Neuro Denies abnormal gait, Denies dizziness and Reports headache(s) Psych Reports no additional complaints Physical exam (Primary Care) Vital Signs: Last Vital Signs Temp 97.3 F 09/02/25 15:10 Pulse 99 09/02/25 15:10 BP 140/60 H 09/02/25 15:10 Pulse Ox 98 09/02/25 15:10 Oxygen Delivery Method Room Air 09/02/25 15:10 BMI result Body Mass Index 30.2 Tobacco/Smoking Status: Tobacco use Status Tobacco use date assessed 09/02/25 09/02/25 15:16 Patient Tobacco Use Status Current everyday Tobacco 09/02/25 15:16 Tobacco use type Cigarette 09/02/25 15:16 e-Cigarette/Vaping Use Never Used 09/02/25 15:16 Thrive Assessment: Date of Thrive Assessment Date Thrive assessed 10/24/23 09/02/25 15:16 Currently or been in a relationship where the following occur: No concerns reported Const General: cooperative, healthy appearing, comfortable and no acute distress Orientation/consciousness: patient oriented x3 HENMT Head: Yes normocephalic Ears: hearing grossly normal bilaterally, TM's normal bilaterally and EAC's normal General nose exam: Normal external nose present Face and sinus: Yes normal facial exam Mouth: Normal oral and palatal mucosa present and oropharynx normal Throat: Yes posterior oropharynx normal, Yes tonsils normal and Yes uvula midline Eyes General: appearance normal, both eyes and all related structures Conjunctivae: conjunctivae normal Neck Neck: Yes full ROM and Yes no lymphadenopathy Resp Effort & Inspection: normal respiratory effort Auscultation: clear to auscultation bilaterally, no crackles, no rales, no rhonchi and no wheezes Cardio Rate: regular rate Rhythm: regular rhythm Skin General skin exam: no rashes or lesions noted Neuro General: patient oriented x3 Gait exam (Neuro): Normal gait present Extrem General: Yes normal to inspection, Yes full ROM and No edema Psych Affect: normal affect Attitude: cooperative Insight: Good insight present (Psych) Judgement: Good judgement present (Psych) Results AMB Rapid Strep AMB Rapid Strep Negative Last Edit by DOUG Clay on 09/02/25 15:2 7 Results Reviewed Results Reviewed: Laboratory Last Values Strep Scn Rapid Clinic Negative 09/02/25 15:17 Coding Level of Care Code Est Pt Level 3 (47576) Diagnoses Viral URI J06.9 Assessment & Plan Assessment & Plan (1) Viral URI: Code(s): J06.9 - Acute upper respiratory infection, unspecified Category: Medical Plan: The patient's presentation with a sore throat, cough, fever, and headache, in conjunction with a negative rapid strep test, is most consistent with a viral etiology. Given the high prevalence and a recent sick contact, swabs for COVID- 19 and influenza were collected for testing, with results expected the following morning. Management will be supportive, including increased fluid intake, rest, and use of Tylenol for fever and ibuprofen for pain. A prescription for a cough suppressant to be taken at nighttime was provided, with the option of using an nwhs-wqw-leawqwn medication like Delsym if the prescription is not covered by insurance. The patient was instructed to seek further care via phone call, urgent care, or the ER for a chest x-ray if the cough becomes productive, worsens, or if she develops worsening shortness of breath, to rule out developing pneumonia. Plan This note was constructed using voice recognition software. While every effort has been made to ensure accuracy and rug layer, still areas may have been included sometimes these areas may affect the content or meeting of the given symptoms. Total time spent caring for the patient today was 20 minutes. This includes time spent before the visit reviewing the chart, time spent during the visit, and time spent after the visit and documentation. Patient was informed and verbally consented to the use of an ambient scribe for clinic note documentation during this visit. Orders: Orders AMB Rapid Strep Screen Today Z13.9 - Encounter for screening, unspecified SARS-CoV2/FLU/RSV Today R09.89 - Other specified symptoms and signs involving the circulatory and respiratory systems Medications: New benzonatate 200 mg PO BID PRN 30 caps 0RF cough Refilled omeprazole 20 mg PO DAILY 90 caps 1RF R11.0 - Nausea
[2025-09-02 15:10] VITALS: BP 140/60; PULSE 99; TEMP 36.3; O2SAT 98; BMI 30.2
--- OUTSIDE RECORDS SUMMARY | 2025-09-02 15:56 | XMS_ITS | Encounter Summary ---
Author Organization [facility] Address [address] [facility] [address] [place] [phone] Phone Care Team Providers Care Manager Department Name Role Phone Ayush Cope Primary Care Provider + Encounter Details Date Type Department Care Team (Late st Contact Info) Description 08/03/2023 Procedure Pass [facility], Ct Scan - [address] [address] Social History Tobacco Use Types Packs/Day Years Used Date Smoking Tobacco: Former Cigarettes 0.3 10 1 10/2009 - 08/2020 Smokeless Tobacco: Never Alcohol Use Standard Drinks/Week Comments No 0 (1 standard drink = 0.6 oz pur e alcohol) Education Answer Date Recorded Are you interested in more education? Not on warren e 01/06/2023 Are you concerned about learning? Not on file 01/06/2023 No 01/06/2023 No 01/06/2023 Digital Access Answer Date Recorded No 02/04/2023 No 02/04/2023 Reliable internet access at home? Not on file 02/04/2023 Device with a working camera? Not on file Intimate Partner Violence Answer Date R ecorded Are you denied basic needs s uch as food, clothing, or medical care? No 08/03/2023 In the past 12 months have y ou been in a relationship with a person who hurts, threatens, or tries to control you? No 08/03/2023 Are you denied basic needs s uch as food, clothing, or medical care? No 08/03/2023 In the past 12 months have y ou been in a relationship with a person who hurts, threatens, or tries to control you? No 08/03/2023 Comments No Sex and Gender Information Value Date Recorded Sex Assigned at Female 05/10/2018 2:19 PM EDT Legal Sex Female 9:33 PM EDT Gender Identity Female 05/10/2018 2:19 PM EDT Sexual Orientation Straight 03/24/2019 8: 29 PM EDT documented as of this encounter Plan of Treatment Not on file documented as of this encounter Visit Diagnoses Not on filedocumented in this encounter Care Teams Manager Department Relationship Specialty Start Date End Date Ayush Cope PA [address] [place] [address] PCP - General 03/22/22 documented as of this encounter Additional Source Comments The information contained in this document represents components of the legal health record. It is not the complete legal health record.[facility]
--- OUTSIDE RECORDS SUMMARY | 2025-09-02 15:56 | XMS_ITS | Encounter Summary ---
Author Organization [facility] Address [address] [place] [phone] Phone Care Team Providers Care Negative Stripper Name Role Phone Ayush Cope Primary Care Provider + Encounter Details Date Type Department Care Team (Late st Contact Info) Description 07/15/2022 Procedure Pass [facility], [address] [address] Social History Tobacco Use Types Packs/Day Years Used Date Smoking Tobacco: Former Cigarettes 0.3 10 1 10/2009 - 08/2020 Smokeless Tobacco: Never Alcohol Use Standard Drinks/Week Comments No 0 (1 standard drink = 0.6 oz pur e alcohol) Comments No Sex and Gender Information Value [...] on filedocumented in this encounter Care Teams Negative Stripper Relationship Specialty Start Date End Date Ayush Cope PA [address] [place] [id number] PCP - General 03/22/22 documented as of this encounter Additional Source Comments The information contained in this document represents components of the legal health record. It is not the complete legal health record.[facility]
--- OUTSIDE RECORDS SUMMARY | 2025-09-02 15:56 | XMS_ITS | Encounter Summary ---
Author Organization [facility] Address [address] [facility] [address] [place] [phone] Phone Care Team Providers Care Patent Leather Sorter Name Role Phone Ayush Cope Primary Care Provider + Encounter Details Date Type Department Care Team (Late st Contact Info) Description 03/22/2022 Procedure Pass [facility], Ct Scan - [address] [address] Social History Tobacco Use Types Packs/Day Years [...] Diagnoses Not on filedocumented in this encounter Additional Health Concerns Infection Onset Date Last Indicated Resolved Time CoV-Risk 03/22/2022 03/22/2022 04/02/2022 1:22 AM EDT documented as of this encounter Care Teams Patent Leather Sorter Relationship Specialty Start Date End Date Ayush Cope PA [address] [place] [address] PCP - General 03/22/22 documented as of this encounter Additional Source Comments The information contained in this document represents components of the legal health record. It is not the complete legal health record.[facility]
--- OUTSIDE RECORDS SUMMARY | 2025-09-02 15:56 | XMS_ITS | Encounter Summary ---
Author Organization [facility] Address [address] [facility] [address] [place] [phone] Phone Care Team Providers Care Bar Pilot Name Role Phone Ayush Cope Primary Care Provider + Ayush Cope Primary Care Provider + Encounter Details Date Type Department Care Team (Late st Contact Info) Description 04/29/2021 Procedure Pass [place] Admitting Dept - Virtual Department [address] [place] [phone] Social History Tobacco Use Types Packs/Day Years [...] Onset Date Last Indicated Resolved Time CoV-Risk 02/03/2022 02/03/2022 02/14/2022 1:24 AM EDT CoV-Risk 03/22/2022 03/22/2022 04/02/2022 1:22 AM EDT documented as of this encounter Care Teams Bar Pilot Relationship Specialty Start Date End Date Ayush Cope PA [address] [place] [address] PCP - General 02/16/21 02/02/22 Ayush Cope PA [address] [place] [address] PCP - General 03/22/22 documented as of this encounter Additional Source Comments The information contained in this document represents components of the legal health record. It is not the complete legal health record.[facility]
--- OUTSIDE RECORDS SUMMARY | 2025-09-02 15:56 | XMS_ITS | Encounter Summary ---
Author Organization [facility] Address [address] [place] [phone] Phone Care Team Providers Care Microsoft Bi Developer Name Role Phone Ayush Cope Primary Care Provider + Encounter Details Date Type Department Care Team (Late st Contact Info) Description 07/15/2022 Procedure Pass [facility], Ct Scan - [address] [address] Social History Tobacco Use Types Packs/Day Years [...] on filedocumented in this encounter Care Teams Microsoft Bi Developer Relationship Specialty Start Date End Date Ayush Cope PA [address] [place] [phone] PCP - General 03/22/22 documented as of this encounter Additional Source Comments The information contained in this document represents components of the legal health record. It is not the complete legal health record.[facility]
--- OUTSIDE RECORDS SUMMARY | 2025-09-02 15:56 | XMS_ITS | Encounter Summary ---
Author Organization [facility] Address [address] [facility] [address] [place] [phone] Phone Care Team Providers Care Lactation Consultant Name Role Phone Ayush Cope Primary Care Provider + Encounter Details Date Type Department Care Team (Late st Contact Info) Description 03/22/2022 Procedure Pass [facility], Ct Scan - [address] [address] Social History Tobacco Use Types Packs/Day Years [...] documented as of this encounter Care Teams Lactation Consultant Relationship Specialty Start Date End Date Ayush Cope PA [address] [place] [address] PCP - General 03/22/22 documented as of this encounter Additional Source Comments The information contained in this document represents components of the legal health record. It is not the complete legal health record.[facility]
--- OUTSIDE RECORDS SUMMARY | 2025-09-02 15:56 | XMS_ITS | Clinical Summary ---
Author Organization [facility] Address [address] [employer] [facility] [address] [place] [address] Phone Care Team Providers Care Head Of Precision Targeting Name Role Phone Ayush Cope Primary Care Provider + Allergies Active Allergy Reactions Criticality Noted Date Comments Aspirin 03/21/2022 Hydromorphone 03/21/2022 Ibuprofen 03/21/2022 gastric ulcer Opioids - Morphine Analogues 018 Pt can only take morphine and vicodin for pain relief Penicillins Hives Medium 05/10/2018 Medications omeprazole (PRILOSEC) 20 MG capsule Take 2 capsules by mouth daily. Active VIMPAT 150 mg Tab Take 200 mg by mouth 2 (two) times a day. Active meclizine (ANTIVERT) 25 mg tablet TAKE 1 TABLET BY MOUTH THREE TIMES A DAY NEEDED FOR DIZZINESS OR VERTIGO Active cholecalciferol , vitamin D3, (VITAMIN D3 ORAL) Take by mouth daily. Active ascorbic acid (VITAMIN C ORAL) Take by mouth daily. Super Potent Vitamin C Active acetaminophen (TYLENOL) 325 mg tablet Take 2 tablets (650 mg total) by mouth every 6 (six) hours as needed for mild pain. Active Additional Information Patient not taking.Reported on 04/16/2025 ibuprofen (ADVIL,MOTRIN) 200 MG tablet Take 3 tablets (600 mg total) by mouth every 6 (six) hours as needed for pain (specific location in comments). Active Additional Information Patient not taking.Reported on 04/16/2025 oxyCODONE 5 MG immediate release tablet Take 1 tablet (5 mg total) by mouth every 6 (six) hours as needed for severe pain. Partial fill ok 10 tablet 2 Active Additional Information Patient not taking.Reported on 04/16/2025 OXcarbazepine (TRILEPTAL) 600 MG tablet Take 1 tablet (600 mg total) by mouth 2 (two) times a day. 60 tablet 2 Active levETIRAcetam (KEPPRA) 500 MG tablet Take 500 mg by mouth nightly at bedtime. at bedtime. 3 Active Active Problems Problem Noted Date Diagnosed Date Diplopia 07/15/2022 Assessment & Plan (07/15/2022 7:50 AM EDT): CVA vs MS flare. - Plavix (?ASA allergy), high dose Lipitor - MRI with contrast - Echo - youth nutritional monitor, loop upon dc - Lipid profile, HgA1C, TSH, ESR, CRP - PT/OT - Permissive hypertension Seizure disorder 07/15/2022 Assessment & Plan (07/15/2022 7:52 AM EDT): Pt with a PMH incl TBI, CVA and MS. Last seizure (grand mal) 2020. - Vempat Thyroid nodule 07/15/2022 Assessment & Plan (07/15/2022 7:59 AM EDT): Inicidental finding of 3 cm right thyroid nodule on CT. 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 Assessment & Plan (07/15/2022 7:54 AM EDT): Pt not on DMT. - If MRI shows MS flare start Solumedrol 1gm qd x 3 days and re-consult Neuro Premature menopause 02/16/2021 Overview (02/16/2021): Stopped menses at age 37 when diagnosed with MS. No bleeding since. Assessment & Plan (02/16/2021 9:31 AM EDT): Will verify diagnosis with TSH, FSH, E2, PRL. She reports amenorrhea as a teen that was treated with parlodel. Immunizations Immunization Administration Dates Next Due COVID-19 (Pre-07/03) Moderna Vaccine, mRNA, PF 0 02/03/2021 Influenza Quadrivalent Preservative Free IM 12/2021,05/22/2018 Tdap 03/24/2019 Family History Medical History Relation Comments Anxiety disorder Father Leukemia Mother Relation Status Comments Father Alive Mother Alive Social History Tobacco Use Types Packs/Day Years Used Date Smoking Tobacco: Former Cigarettes 0.3 10 1 10/2009 - 08/2020 Smokeless Tobacco: Never Tobacco Cessation:Counseling Given: Not Answered Alcohol Use Standard Drinks/Week Comments No 0 [...] Orientation Straight 03/24/2019 8: 29 PM EDT Last Filed Vital Signs Vital Sign Reading Time Taken Comments Blood Pressure 120/83 04/16/2025 5:26 PM EDT Pulse 73 04/16/2025 5:26 PM EDT Temperature 36.1 C (97 F) 04/16/2025 5:26 PM EDT Respiratory Rate 20 04/16/2025 5:26 PM EDT Oxygen Saturation 100% 04/16/2025 5:26 PM EDT Inhaled Oxygen Concentration - - Weight 68 kg (150 lb) 04/16/2025 5:26 PM EDT Height 160.7 cm (5' 3.27 ) 04/16/2025 5:26 PM ED T Body Mass Index 26.35 04/16/2025 5:26 PM EDT Plan of Treatment Health Maintenance Due Date Last Done Comments LIPID PANEL 1971 DEPRESSION SCREENING 1983 HEPATITIS C SCREENING 12/28/1989 HIV ONE-TIME SCREENING (18-65 YEARS) 12/28/1989 ZOSTER VACCINES (1 of 2) 12/28/1990 COLOGUARD 12/28/2016 COLONOSCOPY 12/28/2016 COLORECTAL CANCER SCREENING 12/28/2016 FIT TEST 12/28/2016 FOBT 12/28/2016 SIGMOIDOSCOPY 12/28/2016 VIRTUAL COLONOSCOPY 12/28/2016 PNEUMOCOCCAL VACCINES (50+ years) (3 of 3 - PCV) 03/17/2022 03/17/2021, 05/18/2013 MAMMOGRAM 12/31/2023 12/30/2021 PAP SMEAR 02/17/2024 02/16/2021 INFLUENZA VACCINE (#1) 2025 , 07/15/2022, 05/22/2018, Additional history exists COVID-19 VACCINE ( season) 2025 02/03/2021, 01/06/2021 SCREENING FOR DIABETES 08/03/2026 08/03/2023 Adult Td,Tdap Booster 03/24/2029 03/24/2019, 015 SMOKING STATUS SCREENING (Every 5 Years) 09/17/2029 09/17/2024 RSV VACCINE (1 - 1-dose 75+ series) 12/28/2046 HEPATITIS A VACCINES Aged Out No long er eligible based on patient's age to complete this topic HIB VACCINES Aged Out No longer eligi ble based on patient's age to complete this topic MENINGOCOCCAL VACCINES (ACWY) Aged Out No longer eligible based on patient's age to complete this topic MENINGOCOCCAL VACCINES (B) Aged Out N o longer eligible based on patient's age to complete this topic Medical Devices Not on file Procedures Procedure Name Priority Date/Time Associated Diagnosis Comments BI MRI BREAST OUTSIDE (NO INTERPRETATION) Routine 12/30/2021 12:00 AM EDT PAP TEST Routine 02/16/2021 12:00 AM EDT from Last 3 Months or Most Recently Relevant to Health Maintenance Results * MRI Breast Outside (No Interpretation) (12/30/2021 12:00 AM EDT) Narrative SYSTEMGENERATED, DOCUMENTATION - 08/01/2022 5:05 PM EST This study is for PACS storage only and not for interpretation. us Unknown Unknown MD IMG OUTSIDE IMAGING W/OUT INT ERPRETATION Final Result * (ABNORMAL) Pap Smear (02/16/2021 12:00 AM EDT) 02/16/2021 02/17/2021 9:1 0 AM EDT Narrative SEE NARRATIVE - 02/23/2021 3:54 PM EDT [address] [address] Hand Picker: Tabitha Guzman MD MOTEL FOOD SERVICE SUPERVISOR Cytology Report FINAL DIAGNOSIS A. PAP SMEAR (SUREPATH) CE: SPECIMEN ADEQUACY: Satisfactory for evaluation; transformation zone present. INTERPRETATION: EPITHELIAL CELL ABNORMALITY - SQUAMOUS. High grade squamous intraepithelial lesion. Coccobacilli consistent with shift in emir Electronically Signed Out By: MD Ottoniel Cruz CT(ASCP) By his/her signature above, the pathologist listed as making the Final Diagnosis certifies that he/she has personally reviewed this case and confirmed or corrected the diagnosis. The Pap test is a screening test primarily for squamous cancers and precursors and has associated false-negative and false-positive results. New technologies such as liquid-based preparations may decrease but will not eliminate all false-negative results. Regular sampling and follow-up of unexplained clinical signs and symptoms are recommended to minimize false negative results. PROCEDURES/ADDENDA HPV Testing (Requested) Ordered Date: 02/17/2021 A. PAP SMEAR (SUREPATH) CE: Human Papilloma Virus TEST Positive for high-risk Human Papilloma Virus (HR-HPV); additional testing was necessary to identify the most virulent high-risk strains. The current sample is positive for high-risk Human Papilloma Virus type 16 by Prakash Rolla HR-HPV analysis. Negative for high-risk Human Papilloma Virus types 18, 45 and Other high risk probe set (Includes 31, 33, 35, 39, 51, 52, 56, 58, 59, 66, 68) by Prakash Jennifer Onclarity HR-HPV analysis. Clinical correlation is advised. This HPV test was performed at [facility], [address] [place] [address]. This test has been FDA approved for SurePath cervical cytology specimens. The accuracy and precision of this test for all other specimen sources has been verified in the Cytopathology Laboratory of the [facility] and has not been cleared or approved by the U.S. Food and Drug Administration. Clinical correlation is advised. CLINICAL HISTORY Date of Last Menstrual Period: AGE 37 Menstrual History: Post Menopausal Other Clinical Conditions: Screening Pap SPECIMEN SOURCE A: PAP SMEAR (SUREPATH) CE Patient Name: KATIE GOFF : 1970 (Age: 50) Sex: F Institution: [facility] [place] Location: [facility] Date of Collection: 02/16/2021 Date of Reported: 02/23/2021 15:54 Results to: Cirilo Guillen MD Cirilo Guillen MD CYTOLOGY ORDERABLES Final Result SEE NARRATIVE from Last 3 Months or Most Recently Relevant to Health Maintenance Insurance MEDICARE PART A & B [facility] ONE CARE MEDICARE REPLACEMENT [place] [id number] MEDICARE PART A & B ONE CARE MEDICARE REPLACEMENT MEDICARE PART A & B CARE MEDICARE REPLACEMENT MEDICARE PART A & B Member Subscriber Plan / Payer (Ef fective 2013-Present) Name:Katie Goff Member ID:[id number] Relation to Subscriber:Self Name:Katie Goff Subscriber ID:[id number] Payer ID:[id number] Group ID:Not on file Type:Medicare Address: [address] [place] [id number] [place] [address] ONE CARE MEDICARE REPLACEMENT [place] [id number] MEDICARE PART A & B Member Subscriber Plan / Payer ( fective 2013-Present) Name:Katie Goff Member ID:[id number] Relation to Subscriber:Self Name:Katie Goff Subscriber ID:[id number] Payer ID:[id number] Group ID:Not on file Type:Medicare Address: garbs [address] [place] [phone] [facility] ONE CARE MEDICARE REPLACEMENT [place] [address] MEDICARE PART A & [place] [address] CARE MEDICARE REPLACEMENT MEDICARE PART A & B Member Subscriber Plan / Payer ( fective 2013-Present) Name:Katie Goff Member ID:[id number] Relation to Subscriber:Self Name:ShellKatie Subscriber ID:[id number] Payer ID:[id number] Group ID:Not on file Type:Medicare Address: garbs [address] [place] [phone] [facility] ONE CARE MEDICARE REPLACEMENT MEDICARE PART A & B CARE MEDICARE REPLACEMENT MEDICARE PART A & B [facility] ONE CARE MEDICARE REPLACEMENT [place] [address] Advance Directives For more information, please contact: [phone] (9AM - 5PM [facility], Monday-Monday) Documents on File Type Date Recorded Patient Fish Icer Expl anation Healthcare Proxy 04/30/2021 4:27 PM * Full Code (Latest Code Status on File) Date Activated Date Inactivated Comments 07/15/2022 8:10 AM Question Answer Comments Code Status Confirmed With: Patient * Full Code Date Activated Date Inactivated Comments 04/29/2021 10:23 AM 07/15/2022 8:10 AM Question Answer Comments Code Status Confirmed With: Patient Care Teams Head Of Precision Targeting Relationship Specialty Start Date End Date Ayush Cope PA [address] [place] [address] PCP - General 03/22/22 Additional Source Comments The information contained in this document represents components of the legal health record. It is not the complete legal health record.[facility]
--- OUTSIDE RECORDS SUMMARY | 2025-09-02 15:56 | XMS_ITS | Encounter Summary ---
Author Organization [facility] Address [address] [place] [address] Phone Care Team Providers Care Labor Economics Professor Name Role Phone Ayush Cope Primary Care Provider + Encounter Details Date Type Department Care Team (Late st Contact Info) Description 07/15/2022 Procedure Pass [facility], Ct Scan - [address] [address] Social History Tobacco Use Types Packs/Day Years [...] on filedocumented in this encounter Care Teams Labor Economics Professor Relationship Specialty Start Date End Date Ayush Cope PA [address] [place] [address] PCP - General 03/22/22 documented as of this encounter Additional Source Comments The information contained in this document represents components of the legal health record. It is not the complete legal health record.[facility]
--- OUTSIDE RECORDS SUMMARY | 2025-09-02 15:56 | XMS_ITS | Encounter Summary ---
Author Organization [facility] Address [address] [facility] [address] [place] [address] Phone Care Team Providers Care Machine Operations Supervisor Name Role Phone Duy Pretty MD Primary Care Provider [phone] Chanell Villar CNP Primary Care Provid er Ayush Cope Primary Care Provider + Ayush Cope Primary Care Provider + Encounter Details Date Type Department Care Team (Late st Contact Info) Description 05/10/2018 Procedure Pass [facility], Ct Scan - [address] [phone] Social History Tobacco Use Types Packs/Day Years Used Date Smoking Tobacco: Former Smokeless Tobacco: Never Alcohol Use Standard Drinks/Week Comments No 0 (1 standard drink = 0.6 oz pur e alcohol) Comments Unknown Sex and Gender Information Value Date Recorded [...] documented as of this encounter Care Teams Machine Operations Supervisor Relationship Specialty Start Date [place] [address] [email or web address] PCP - General 09/14/17 03/23/19 [place] [address] [email or web address] PCP - General Family Medicine 03/24/19 02/15/21 Ayush Cope PA [address] [place] [address] PCP - General 02/16/21 02/02/22 Ayush Cope PA [address] [place] [address] PCP - General 03/22/22 documented as of this encounter Additional Source Comments The information contained in this document represents components of the legal health record. It is not the complete legal health record.[facility]
--- OUTSIDE RECORDS SUMMARY | 2025-09-02 15:56 | XMS_ITS | Encounter Summary ---
Author Organization [facility] Address [address] [place] [address] Phone Care Team Providers Care Baker Bench Name Role Phone Ayush Cope Primary Care Provider + Encounter Details Date Type Department Care Team (Late st Contact Info) Description 07/15/2022 Procedure Pass [facility] [address] [place] [address] Social History Tobacco Use Types Packs/Day Years [...] on filedocumented in this encounter Care Teams Baker Bench Relationship Specialty Start Date End Date Ayush Cope PA [address] [place] [address] PCP - General 03/22/22 documented as of this encounter Additional Source Comments The information contained in this document represents components of the legal health record. It is not the complete legal health record.[facility]
== END 2025-09-02 15:36 | disposition home or self-care (01) ==
LOC: HO.HMCH 14:39
PROVIDERS: PCP Physician Assistant
DX: J06.9 Acute upper respiratory infection, unspecified (principal); Z13.9 Encounter for screening, unspecified

== ENCOUNTER → 2025-09-02 14:38 | Outpatient (BNVA) | payer OTHER, SELFPAY | PROVIDERS: PCP Physician Assistant | DX: R11.0 Nausea (principal); J06.9 Acute upper respiratory infection, unspecified; R09.89 Other specified symptoms and signs involving the circulatory and respiratory systems | CPT/HCPCS: 87880; 99212 ==

== ENCOUNTER 2025-09-03 08:17 | Outpatient (REF) | payer OTHER, SELFPAY ==
--- OUTSIDE RECORDS SUMMARY | 2025-09-03 08:20 | XMS_ITS | Encounter Summary ---
Author Organization [facility] Address [address] [employer] [facility] [address] [place] [address] Phone Care Team Providers Care Relay Assembler Name Role Phone Ayush Cope Primary Care Provider + Encounter Details Date Type Department Care Team (Late st Contact Info) Description 03/22/2022 Procedure Pass [facility], Ct Scan - [address] [address] Social History Tobacco Use Types Packs/Day Years [...] documented as of this encounter Care Teams Relay Assembler Relationship Specialty Start Date End Date Ayush Cope PA [address] [place] [address] PCP - General 03/22/22 documented as of this encounter Additional Source Comments The information contained in this document represents components of the legal health record. It is not the complete legal health record.[facility]
--- OUTSIDE RECORDS SUMMARY | 2025-09-03 08:20 | XMS_ITS | Encounter Summary ---
Author Organization [facility] Address [address] [place] [address] Phone Care Team Providers Care Repair Mechanic Name Role Phone Ayush Cope Primary Care Provider + Encounter Details Date Type Department Care Team (Late st Contact Info) Description 07/15/2022 Procedure Pass [facility] [address] [place] [address] Social History Tobacco Use Types Packs/Day Years [...] on filedocumented in this encounter Care Teams Repair Mechanic Relationship Specialty Start Date End Date Ayush Cope PA [address] [place] [address] PCP - General 03/22/22 documented as of this encounter Additional Source Comments The information contained in this document represents components of the legal health record. It is not the complete legal health record.[facility]
--- OUTSIDE RECORDS SUMMARY | 2025-09-03 08:20 | XMS_ITS | Encounter Summary ---
Author Organization [facility] Address [address] [employer] [facility] [address] [place] [address] Phone Care Team Providers Care Weaver Tire Cord Name Role Phone Ayush Cope Primary Care Provider + Encounter Details Date Type Department Care Team (Late st Contact Info) Description 08/03/2023 Procedure Pass [facility], Ct Scan - [address] [address] Social History Tobacco Use Types Packs/Day Years [...] on filedocumented in this encounter Care Teams Weaver Tire Cord Relationship Specialty Start Date End Date Ayush Cope PA [address] [place] [address] PCP - General 03/22/22 documented as of this encounter Additional Source Comments The information contained in this document represents components of the legal health record. It is not the complete legal health record.[facility]
--- OUTSIDE RECORDS SUMMARY | 2025-09-03 08:20 | XMS_ITS | Encounter Summary ---
Author Organization [facility] Address [address] [place] [address] Phone Care Team Providers Care Extrusion Process Operator Name Role Phone Ayush Cope Primary Care Provider + Encounter Details Date Type Department Care Team (Late st Contact Info) Description 07/15/2022 Procedure Pass [facility], [address] [address] Social History Tobacco Use Types Packs/Day Years [...] on filedocumented in this encounter Care Teams Extrusion Process Operator Relationship Specialty Start Date End Date Ayush Cope PA [address] [place] [address] PCP - General 03/22/22 documented as of this encounter Additional Source Comments The information contained in this document represents components of the legal health record. It is not the complete legal health record.[facility]
--- OUTSIDE RECORDS SUMMARY | 2025-09-03 08:20 | XMS_ITS | Encounter Summary ---
Author Organization [facility] Address [address] [facility] [address] [place] [address] Phone Care Team Providers Care Blender Operator Name Role Phone Ayush Cope Primary Care Provider + Ayush Cope Primary Care Provider + Encounter Details Date Type Department Care Team (Late st Contact Info) Description 04/29/2021 Procedure Pass [facility] Ad[facility] - Virtual Department [address] [place] [address] Social History Tobacco Use Types Packs/Day Years [...] documented as of this encounter Care Teams Blender Operator Relationship Specialty Start Date End Date Ayush Cope PA [address] [place] [address] PCP - General 02/16/21 02/02/22 Ayush Cope PA [address] [place] [address] PCP - General 03/22/22 documented as of this encounter Additional Source Comments The information contained in this document represents components of the legal health record. It is not the complete legal health record.[facility]
--- OUTSIDE RECORDS SUMMARY | 2025-09-03 08:20 | XMS_ITS | Encounter Summary ---
Author Organization [facility] Address [address] [place] [address] Phone Care Team Providers Care Senior Sales Consultant Name Role Phone Ayush Cope Primary Care Provider + Encounter Details Date Type Department Care Team (Late st Contact Info) Description 07/15/2022 Procedure Pass [facility], Ct Scan - [address] [address] Social History Tobacco Use Types Packs/Day Years [...] on filedocumented in this encounter Care Teams Senior Sales Consultant Relationship Specialty Start Date End Date Ayush Cope PA [address] [place] [address] PCP - General 03/22/22 documented as of this encounter Additional Source Comments The information contained in this document represents components of the legal health record. It is not the complete legal health record.[facility]
--- OUTSIDE RECORDS SUMMARY | 2025-09-03 08:20 | XMS_ITS | Encounter Summary ---
Author Organization [facility] Address [address] [employer] [facility] [address] [place] [address] Phone Care Team Providers Care River Boat Captain Name Role Phone Ayush Cope Primary Care Provider + Encounter Details Date Type Department Care Team (Late st Contact Info) Description 03/22/2022 Procedure Pass [facility], Ct Scan - [address] [address] Social History Tobacco Use Types Packs/Day Years [...] documented as of this encounter Care Teams River Boat Captain Relationship Specialty Start Date End Date Ayush Cope PA [address] [place] [address] PCP - General 03/22/22 documented as of this encounter Additional Source Comments The information contained in this document represents components of the legal health record. It is not the complete legal health record.[facility]
--- OUTSIDE RECORDS SUMMARY | 2025-09-03 08:20 | XMS_ITS | Encounter Summary ---
Author Organization [facility] Address [address] [place] [address] Phone Care Team Providers Care Regional Training Manager Name Role Phone Ayush Cope Primary Care Provider + Encounter Details Date Type Department Care Team (Late st Contact Info) Description 07/15/2022 Procedure Pass [facility] [place], Ct Scan - [address] [address] Social History Tobacco Use Types Packs/Day Years [...] on filedocumented in this encounter Care Teams Regional Training Manager Relationship Specialty Start Date End Date Ayush Cope PA [address] [place] [address] PCP - General 03/22/22 documented as of this encounter Additional Source Comments The information contained in this document represents components of the legal health record. It is not the complete legal health record.[facility]
--- OUTSIDE RECORDS SUMMARY | 2025-09-03 08:20 | XMS_ITS | Clinical Summary ---
Author Organization [facility] Address [address] [facility] [address] [place] [phone] Phone Care Team Providers Care Budget Specialist Name Role Phone Ayush Cope Primary Care [...] - MRI with contrast - Echo - sales and service consultant, loop upon dc - Lipid profile, HgA1C, [...] SEE NARRATIVE - 02/23/2021 3:54 PM EDT [address] [address] Wig Maker: Tabitha Guzman MD CASE MAKING MACHINE OPERATOR Cytology Report FINAL DIAGNOSIS A. PAP SMEAR [...] Human Papilloma Virus type 16 by Prakash Franklin HR-HPV analysis. Negative for high-risk Human Papilloma Virus types 18, 45 and Other high risk probe set (Includes 31, 33, 35, 39, 51, 52, 56, 58, 59, 66, 68) by Prakash Jennifer Onclarity HR-HPV analysis. Clinical correlation is advised. This HPV test was performed at [facility], [address] [place] [address]. This test has been FDA approved for SurePath cervical cytology specimens. The accuracy and precision of this test for all other specimen sources has been verified in the Cytopathology Laboratory of the [facility] and has not been cleared or approved by the U.S. Food and Drug Administration. Clinical correlation is advised. CLINICAL HISTORY Date of Last Menstrual Period: AGE 37 Menstrual History: Post Menopausal Other Clinical Conditions: Screening Pap SPECIMEN SOURCE A: PAP SMEAR (SUREPATH) CE Patient Name: KATIE GOFF : 1970 (Age: 50) Sex: F Institution: [facility] Location: [facility] Date of Collection: 02/16/2021 Date of Reported: 02/23/2021 15:54 Results to: Cirilo Guillen MD Cirilo Guillen MD CYTOLOGY ORDERABLES Final Result SEE NARRATIVE from Last 3 Months or Most Recently Relevant to Health Maintenance Insurance MEDICARE PART A & B [facility] ONE CARE MEDICARE REPLACEMENT [place] [id number] MEDICARE PART A & B ONE CARE MEDICARE REPLACEMENT MEDICARE PART A & B CARE MEDICARE REPLACEMENT MEDICARE PART A & B Member Subscriber Plan / Payer (Ef fective 2013-Present) Name:Katie Goff Member ID:[id number] Relation to Subscriber:Self Name:Katie Goff Subscriber ID:[id number] Payer ID:[id number] Group ID:Not on file Type:Medicare Address: [employer] [address] [place] [id number] [place] [address] ONE CARE MEDICARE REPLACEMENT [place] [id number] MEDICARE PART A & B [facility] ONE CARE MEDICARE [place]PLACEMENT [place] [id number] MEDICARE PART A & [place] [address] [place] [address] CARE MEDICARE REPLACEMENT MEDICARE PART A & B [facility] ONE CARE MEDICARE REPLACEMENT MEDICARE PART A & B CARE MEDICARE REPLACEMENT MEDICARE PART A & B [facility] ONE CARE MEDICARE REPLACEMENT [place] [id number] Advance Directives For more information, please contact: [phone] (9AM - 5PM [facility], Monday-Monday) Documents on File Type Date Recorded Patient Lab Support Service Tech Expl anation Healthcare Proxy 04/30/2021 4:27 PM * Full Code (Latest Code Status on File) Date Activated Date Inactivated Comments 07/15/2022 8:10 AM Question Answer Comments Code Status Confirmed With: Patient * Full Code Date Activated Date Inactivated Comments 04/29/2021 10:23 AM 07/15/2022 8:10 AM Question Answer Comments Code Status Confirmed With: Patient Care Teams Budget Specialist Relationship Specialty Start Date End Date Ayush Cope PA [address] [place] [address] PCP - General 03/22/22 Additional Source Comments The information contained in this document represents components of the legal health record. It is not the complete legal health record.[facility]
--- OUTSIDE RECORDS SUMMARY | 2025-09-03 08:20 | XMS_ITS | Encounter Summary ---
Author Organization [facility] Address [address] [facility] [address] [place] [phone] Phone Care Team Providers Care Switch Coupler Name Role Phone Duy Pretty MD Primary Care Provider [phone] Chanell Villar CNP Primary Care Provid er Ayush Cope Primary Care Provider + Ayush Cope Primary Care Provider + Encounter Details Date Type Department Care Team (Late st Contact Info) Description 05/10/2018 Procedure Pass [facility], Ct Scan - [address] [id number] Social History Tobacco Use Types Packs/Day Years [...] documented as of this encounter Care Teams Switch Coupler Relationship Specialty Start Date [place] [address] [email or web address] PCP - General 09/14/17 03/23/19 [place] [address] [email or web address] PCP - General Family Medicine 03/24/19 02/15/21 Ayush Cope PA [address] [place] [id number] PCP - General 02/16/21 02/02/22 Ayush Cope PA [address] [place] [id number] PCP - General 03/22/22 documented as of this encounter Additional Source Comments The information contained in this document represents components of the legal health record. It is not the complete legal health record.[facility]
[2025-09-03 09:36] LABS: Resp Syncy Virus RNA Qual PCR NEGATIVE (Negative); SARS COV2 PCR INHOUSE NEGATIVE (Negative)
== END 2025-09-03 08:18 | disposition home or self-care (01) ==
LOC: HO.LNP 08:17
DX: Z03.818 Encounter for observation for suspected exposure to other biological agents ruled out (principal)
CPT/HCPCS: 87637